=== PATIENT | female | born 1970 | race African-American/Black ===

== ENCOUNTER 2017-02-11 09:50 | Observation (INO) | payer MEDICARE ==
[2017-02-11] MEDS ORDERED: Ondansetron HCl/PF 4 MG/2 ML Vial ONE ×2 (10:09→11:31)
[2017-02-11 10:23] LABS: #Lymphocytes 1.9 thou/uL (1.20-3.40); #Monocytes 0.4 thou/uL (0.11-0.59); #Neutrophils 5.9 thou/uL (1.40-6.50); %Basophils 0.5 % (0.0-1.0); %Eosinophils 0.1 % (0.0-10.0); %Monocytes 5.1 % (0.0-10.0); Hematocrit 48.3 % (36.0-47.0); Mean Platelet Volume 7.7 fL (7.4-10.4); Red Blood Cell (RBC) Count 5.45 mill/uL (4.20-5.40); White Blood Cell (WBC) Count 8.2 thou/uL (4.8-10.8)
[2017-02-11 10:43] LABS: ALT (SGPT) 36 U/L (8-55); AST (SGOT) 31 U/L (5-34); Alkaline Phosphatase 234 U/L (40-150); Anion Gap 18 mmol/L (10-20); BUN (Urea Nitrogen) 25 mg/dL (7.0-18.7); Bilirubin, Total 0.5 mg/dL (0.2-1.2); Calc. Creatinine Clearance 0 mL/min (70-130); Calcium 10.5 mg/dL (7.8-10.44); Carbon Dioxide 25 mmol/L (22-29); Chloride 96 mmol/L (98-107); Estimated GFR-MDRD 67; Globulin 5.4 g/dL (2.4-3.5); Lipase 6 U/L (8-78); Protein, Total 9.4 g/dL (6.0-8.3)
[2017-02-11] MEDS ORDERED: Promethazine HCl 25 MG/ML VIAL ONE (12:22)
--- NOTE | 2017-02-11 15:03 | HP ---
PRIMARY CARE PHYSICIAN: [facility]. REASON FOR ADMISSION: Gastroenteritis, dehydration. HISTORY OF PRESENT ILLNESS: A 47-year-old -[place] female with history of hypertension, idalia betes type 2, who presented to emergency room with complaint of nausea, vomiting, diarrhea. Per pat ient, it started on Friday night. Patient had several times vomiting and several times liquidy sahara l movement. Patient was also having crampy abdominal discomfort. She was not having any fever, but she was subjectively feeling hot. On Friday, she had continuous nausea, vomiting, and diarrhea int ermittently all day. She was feeling very weak today and this morning, the patient was not feeling good. She was feeling sick in her stomach. She was feeling exhausted and she was still having inte rmittent nausea, vomiting, and diarrhea. She denies any sick contact. Patient thinks that she has eaten bad stuff and after that all this started. She denies any hematemesis. She denies any hemato chezia. She denies any melena. She denies any fever. She denies any UTI symptoms. She denies any dizziness, syncope. In the emergency room, patient was not able to keep anything down. She was hypertensive. She was t achycardic and she clinically appeared dehydrated. The patient was given IV fluid and subsequently we decided to keep this patient in the hospital for observation for hydration. Patient denies any headaches. She denies any chest pain, palpitations. She denies any orthopnea, P ND or leg swelling. She denies any illicit drug abuse. PAST MEDICAL HISTORY: Diabetes type 2, hypertension. PAST SURGICAL HISTORY: Hysterectomy. At 2014, patient had EGD which showed esophagitis. PAST PSYCHIATRIC HISTORY: Reviewed and negative. ALLERGIES: No known drug allergies. CURRENT HOME MEDICATIONS: The patient does not have any medication with her at this point, but yasmine ent is taking following medications: Amlodipine 10 mg p.o. daily, Lantus 30 units subcu twice daily , metformin 500 mg p.o. b.i.d. SOCIAL HISTORY: Patient lives at home. No history of tobacco, alcohol or illicit drug abuse. FAMILY HISTORY: Mother by age of 62 from stomach cancer. Father did not have any medical issu e. No strong family history of coronary artery disease or stroke. REVIEW OF SYSTEMS: The following complete review of systems was negative, unless otherwise mentione d in the HPI or below: Constitutional: Weight loss or gain, ability to conduct usual activities. Skin: Rash, itching. Eyes: Double vision, pain. ENT/Mouth: Nose bleeding, neck stiffness, pain, tenderness. Cardiovascular: Palpitations, dyspnea on exertion, orthopnea. Respiratory: Shortness of breath, wheezing, cough, hemoptysis, fever or night sweats. Gastrointestinal: Poor appetite, abdominal pain, heartburn, nausea, vomiting, constipation, or diar pam. Genitourinary: Urgency, frequency, dysuria, nocturia. Musculoskeletal: Pain, swelling. Neurologic/Psychiatric: Anxiety, depression. Allergy/Immunologic: Skin rash, bleeding tendency. Please see my HPI for pertinent positives and negatives. All other review of systems reviewed and n egative except as mentioned in the HPI. EMERGENCY ROOM COURSE: Patient is given IV fluid, Phenergan 12.5 mg, Cardizem 10 mg IV push, Zofran 4 mg, amlodipine one tablet, Zofran 4 mg. PHYSICAL EXAMINATION: VITAL SIGNS: On arrival, blood pressure 201/134, pulse 102, respiratory rate 16, temperature 97.7, saturation 100% on room air, weight 50.8 kilograms. GENERAL: Patient is currently alert, awake, no obvious acute distress. HEENT: Head: Normocephalic, atraumatic. Eyes: Pupils round, reactive to light. No nystagmus. E xtraocular muscle intact. ENT: Dry appearing mucous membranes. No oral lesions. No pharyngeal erythema, no exudate. NECK: Supple. Range of motion is normal. No meningeal signs of irritation. LUNGS: Clear to auscultation without any rhonchi or rales. CARDIAC: S1, S2 regular, tachycardia, no murmur, no gallop, no rub. ABDOMEN: Patient does have subjective vague abdominal discomfort, no peritoneal sign, no guarding, no rigidity, no rebound, no Pressley's sign, no suprapubic discomfort. BACK: Unremarkable, no CVA tenderness. EXTREMITIES: Upper extremity: Passive movement of all joints normal. Lower extremity: No edema. Good peripheral pulsation. SKIN: No skin rash. HEMATOLOGICAL: No lymphadenopathy. NEUROLOGIC: Patient is alert, oriented. Speech normal. No focal neurological deficit noted. The patient is moving all four limbs, plantar bilateral flexor. PSYCHIATRIC: Normal affect. SIGNIFICANT LABORATORY DATA: CBC: WBC 8.2, hemoglobin 16.5, platelet 279. BMP: Sodium 135, potas sium 3.6, chloride 96, anion gap 18, BUN 25, creatinine 1.06, glucose 141, calcium 10.5. LFT: AST 31, ALT 36, alkaline phosphatase 234, albumin 4.0, lipase 6. ASSESSMENT AND PLAN: 1. Gastroenteritis. This patient has nausea, vomiting, diarrhea. Per patient, it started after ea ting some bad stuff. At this point, a viral gastroenteritis is possible underlying infectious, etio logy needs to be excluded. This patient has severe nausea, vomiting, diarrhea, and she is clinicall y dehydrated. This patient is not able to keep anything down and that is why she will require admis haris for observation. We will continue with hydration, with IV fluid, with NS at 100 mL per hour. Regarding workup deshpande, we will do stool study for infectious workup. We will check C. difficile, ov a and parasite, Campylobacter antigen. At this point, we will not give her any antibiotic therapy. The patient will need symptomatic treatment with Zofran, Phenergan, Pepcid 20 mg IV b.i.d. and IV f luid for hydration. 2. Volume depletion/dehydration secondary to nausea, vomiting, diarrhea. This patient has low sodi um, low chloride. She is clinically appears dehydrated, this patient will be given IV fluid with NS at 100 mL per hour and we will repeat BMP tomorrow. 3. Hypertension. The patient's blood pressure is out of control, likely due to stress from nausea, vomiting, and diarrhea. At this point, we will continue with amlodipine 10 mg p.o. daily. We will also use hydralazine, labetalol, and clonidine on p.r.n. basis. 4. Diabetes type 2. We will continue with insulin as per sliding scale protocol. Diabetic diet wi ll be given. Once we verify her home dose of Lantus, then we will resume Lantus and metformin, when patient is able to take p.o. intake. At this point, only we will continue with sliding scale. 5. Deep venous thrombosis prophylaxis not needed because we are expecting discharge in 24 hours. 6. Gastrointestinal prophylaxis, Pepcid 20 mg IV b.i.d. 7. CODE STATUS: The patient is FULL CODE. The patient does not have any surrogate decision maker. Disposition and plan based on clinical course. We are expecting patient's discharge in 24-48 hours. Plan of care discussed with the patient in detail.
[2017-02-11] MEDS ORDERED: Artificial Tears 18 DROP/0.9 ML EA EYE PRN (15:12)
[2017-02-11] MEDS ORDERED: HYDROcodone/Acetaminophen 5/325 mg Tablet PO PRN (15:12)
[2017-02-11] MEDS ORDERED: Labetalol HCl 100 MG/20 ML VIAL SLOW IVP PRN (15:12)
[2017-02-11] MEDS ORDERED: Loperamide HCl 2 MG CAP PO PRN (15:12)
[2017-02-11] MEDS ORDERED: Mag-Al 1200 mg/1200 mg/30 ML UDCUP PO PRN (15:12)
[2017-02-11] MEDS ORDERED: Dextrose 50% Abboject 50 ML SYRINGE SLOW IVP PRN (15:12)
[2017-02-11] MEDS ORDERED: Insulin Regular 300 UNITS/3 ML VIAL SC PRN (15:12)
[2017-02-11] MEDS ORDERED: Eucerin (Mineral Oil/Petrolatum,White) 30 gm Jar TOP PRN (15:12)
[2017-02-11] MEDS ORDERED: Diabetic Tussin 200 MG/10 ML UDCUP PO PRN (15:12)
[2017-02-11] MEDS ORDERED: Ondansetron HCl/PF 4 MG/2 ML Vial IVP PRN (15:12)
[2017-02-11] MEDS ORDERED: Loratadine 10 MG TAB PO PRN (15:12)
[2017-02-11] MEDS ORDERED: Milk Of Magnesia 30 ML UDCUP PO PRN (15:12)
[2017-02-11] MEDS ORDERED: Zolpidem Tartrate 5 MG TAB PO PRN (15:12)
[2017-02-11] MEDS ORDERED: HumaLOG 300 UNITS/3 ML VIAL SC PRN (15:12)
[2017-02-11] MEDS ORDERED: Sodium Chloride 0.65% Nasal 44 ML BOT EA NARE PRN (15:12)
[2017-02-11] MEDS ORDERED: Dextrose 5% in Water 1,000 ML IV PRN (15:12)
[2017-02-11] MEDS ORDERED: Acetaminophen 325 MG TAB PO PRN (15:12)
[2017-02-11] MEDS ORDERED: Promethazine HCl 25 MG/ML VIAL IM/IV PRN (15:12)
[2017-02-11] MEDS ORDERED: Ondansetron ODT 4 MG TAB PO PRN (15:12)
[2017-02-11] MEDS: Sodium Chloride 0.9% 1,000 ML IV SCH (16:10)
[2017-02-11 17:23] LABS: Bilirubin Negative (Negative); Blood, Urine Small (Negative); Glucose, Urine (Dipstick) 250 mg/dL (Negative); Ketone, Urine 40 mg/dL (Negative); Nitrite Negative (Negative); Protein, Urine (Dipstick) 300 mg/dL (Neg-Trace)
[2017-02-11 17:28] LABS: Bacteria/HPF 4+ HPF (None Seen); Hyaline Casts/LPF 0-3 HYALINE CAST LPF (0-3 Hyaline); RBC/HPF 21-50 HPF (0-3); Squamous Epithelial 0-3 HPF (0-3)
[2017-02-11 17:33] LABS: Amphetamine Not Detected (NotDetected); Methadone Not Detected (NotDetected); Methamphetamine Not Detected (NotDetected)
[2017-02-11] MEDS: Famotidine/PF 20 mg/2ml Vial SLOW IVP SCH (19:40)
[2017-02-11] MEDS: cloNIDine HCl 0.1 MG TAB PO PRN (19:41)
[2017-02-12] MEDS: Sodium Chloride 0.9% 1,000 ML IV SCH ×2 (04:01→15:22)
[2017-02-12 04:50] LABS: #Lymphocytes 1.7 thou/uL (1.20-3.40); #Monocytes 0.6 thou/uL (0.11-0.59); #Neutrophils 6.9 thou/uL (1.40-6.50); %Basophils 0.3 % (0.0-1.0); %Eosinophils 0.2 % (0.0-10.0); %Lymphocytes 18.5 % (21.0-51.0); %Monocytes 6.8 % (0.0-10.0); Hematocrit 41.2 % (36.0-47.0); Mean Platelet Volume 7.7 fL (7.4-10.4); Red Blood Cell (RBC) Count 4.48 mill/uL (4.20-5.40); White Blood Cell (WBC) Count 9.3 thou/uL (4.8-10.8)
[2017-02-12 05:22] LABS: ALT (SGPT) 25 U/L (8-55); AST (SGOT) 26 U/L (5-34); Alkaline Phosphatase 181 U/L (40-150); Anion Gap 15 mmol/L (10-20); BUN (Urea Nitrogen) 19 mg/dL (7.0-18.7); Bilirubin, Total 0.4 mg/dL (0.2-1.2); Calc. Creatinine Clearance 70 mL/min (70-130); Calcium 9.1 mg/dL (7.8-10.44); Carbon Dioxide 21 mmol/L (22-29); Chloride 105 mmol/L (98-107); Estimated GFR-MDRD Greater than 90; Globulin 4.2 g/dL (2.4-3.5); Magnesium 1.4 mg/dL (1.6-2.6); Protein, Total 7.4 g/dL (6.0-8.3)
[2017-02-12] MEDS: Insulin Regular 300 UNITS/3 ML VIAL SC PRN (06:23)
[2017-02-12] MEDS: Famotidine/PF 20 mg/2ml Vial SLOW IVP SCH (08:03)
--- NOTE | 2017-02-12 08:23 | PDOC.PN ---
- Subjective Encounter Start Date: 02/12/17 Encounter Start Time: 08:21 Subjective: Nausea improving -: No f/c -: No cp/sob - Objective Resuscitation Status: Resuscitation Status FULL:Full Resuscitation MAR Reviewed: Yes Vital Signs & Weight: Vital Signs (12 hours) Temp Pulse Resp BP BP Pulse Ox 02/12/17 08:03 100 02/12/17 07:40 98.7 F 102 H 16 181/80 H 94 L 02/12/17 02:50 99.0 F 100 14 165/101 H 99 02/11/17 23:29 98.7 F 101 H 16 165/85 H 93 L 02/11/17 20:50 182/97 H Weight Weight 113 lb 6.4 oz I&O: 02/11/17 02/12/17 02/13/17 06:59 06:59 06:59 Intake Total 1753 Output Total 500 Balance 1253 Result Diagrams: 02/12/17 04:30 02/12/17 04:30 Additional Labs: Accuchecks 02/11/17 02/11/17 20:40 17:46 POC Glucose 175 H 170 H Phys Exam - Physical Examination Constitutional: NAD HEENT: moist MMs, sclera anicteric Neck: no nodes, no JVD Respiratory: no wheezing, no rales, clear to auscultation bilateral Cardiovascular: RRR, no significant murmur Gastrointestinal: soft, non-tender, positive bowel sounds Neurological: non-focal Psychiatric: normal affect Skin: no rash, normal turgor Dx/Plan (1) Gastroenteritis Code(s): K52.9 - NONINFECTIVE GASTROENTERITIS AND COLITIS, UNSPECIFIED Status : Acute (2) Dehydration Code(s): E86.0 - DEHYDRATION Status: Acute (3) DM type 2 (diabetes mellitus, type 2) Status: Chronic (4) HTN (hypertension) Code(s): I10 - ESSENTIAL (PRIMARY) HYPERTENSION Status: Chronic - Plan Gastroenteritis (N/V/D) with PO intolerance and dehydration * IVFs * prn analgesics/antiemetics * stool studies: unremarkable * check labs in AM +UA * check urine culture DM2 * SSI * f/u accu checks HTN * start Lisinopril 20mg daily * monitor BP and HR closely
[2017-02-12] MEDS ORDERED: Lisinopril 20 MG TAB PO SCH (09:00)
[2017-02-12] MEDS: cloNIDine HCl 0.1 MG TAB PO PRN ×2 (11:44→16:22)
[2017-02-12] MEDS: Famotidine 20 MG TAB PO SCH (20:15)
--- NOTE | 2017-02-13 08:06 | PDOC.PN ---
- Subjective Encounter Start Date: 02/13/17 Encounter Start Time: 08:02 Subjective: Nausea this morning -: No f/c -: No cp/sob - Objective Resuscitation Status: Resuscitation Status FULL:Full Resuscitation MAR Reviewed: Yes Vital Signs & Weight: Vital Signs (12 hours) Temp Pulse Resp BP Pulse Ox 02/13/17 07:56 98.0 F 102 H 16 171/84 H 96 02/13/17 03:54 98.6 F 84 16 180/98 H 96 02/13/17 00:08 99.4 F 91 16 166/89 H 95 Weight Admit Weight 113 lb 6.4 oz Weight 104 lb 11.2 oz I&O: 02/12/17 02/13/17 02/14/17 06:59 06:59 06:59 Intake Total 1753 1720 Output Total 500 500 Balance 1253 1220 Result Diagrams: 02/12/17 04:30 02/12/17 04:30 Additional Labs: Accuchecks 02/13/17 02/12/17 02/12/17 05:03 21:12 17:27 POC Glucose 217 H 242 H 208 H 02/12/17 02/12/17 11:33 05:51 POC Glucose 187 H 195 H Phys Exam - Physical Examination Constitutional: NAD HEENT: moist MMs, sclera anicteric Neck: no nodes, no JVD Respiratory: no wheezing, no rales, no rhonchi Cardiovascular: no significant murmur Gastrointestinal: soft, non-tender, no distention, positive bowel sounds Neurological: non-focal Psychiatric: normal affect Skin: no rash, normal turgor, cap refill <2 seconds Dx/Plan (1) Gastroenteritis Code(s): K52.9 - NONINFECTIVE GASTROENTERITIS AND COLITIS, UNSPECIFIED Status : Acute (2) Dehydration Code(s): E86.0 - DEHYDRATION Status: Acute (3) DM type 2 (diabetes mellitus, type 2) Status: Chronic (4) HTN (hypertension) Code(s): I10 - ESSENTIAL (PRIMARY) HYPERTENSION Status: Chronic - Plan Gastroenteritis (N/V/D) with PO intolerance and dehydration * s/p IVFs * prn analgesics/antiemetics * stool studies: unremarkable * check labs in AM UTI (presumed Klebsiella/Enterobacter on Prelim results) * f/u final urine culture * start Ceftriaxone IV daily DM2 * start 5 units QAM today * SSI * f/u accu checks HTN * started Lisinopril: will increase to 40mg daily * monitor BP and HR closely
[2017-02-13] MEDS ORDERED: cefTRIAXone\\ROCEPHIN 1 GM in Sodium Chloride 0.9% 100 ML IVPB SCH (08:15)
[2017-02-13] MEDS: Famotidine 20 MG TAB PO SCH ×2 (08:22→20:27)
[2017-02-13] MEDS: Lisinopril 20 MG TAB PO SCH (08:22)
[2017-02-13] MEDS ORDERED: Insulin Detemir 100 UNITS/ML 5 UNITS in Pre-Filled Syringe 1 EACH SC SCH (09:00)
[2017-02-13] MEDS: Insulin Regular 300 UNITS/3 ML VIAL SC PRN ×2 (12:13→18:24)
[2017-02-13] MEDS ORDERED: cefTRIAXone\\ROCEPHIN 1 GM VIAL IM SCH (12:45)
[2017-02-14 05:24] LABS: Anion Gap 13 mmol/L (10-20); BUN (Urea Nitrogen) 19 mg/dL (7.0-18.7); Calc. Creatinine Clearance 66 mL/min (70-130); Carbon Dioxide 25 mmol/L (22-29); Chloride 96 mmol/L (98-107); Estimated GFR-MDRD 90; Magnesium 1.3 mg/dL (1.6-2.6)
[2017-02-14] MEDS: Insulin Regular 300 UNITS/3 ML VIAL SC PRN ×2 (05:31→11:19)
[2017-02-14 06:14] LABS: Hematocrit 42.9 % (36.0-47.0); Mean Platelet Volume 7.7 fL (7.4-10.4); Metamyelocyte 1 % (0-0); Neutrophil 43 % (42-75); Reactive Lymphocytes 1 % (0-10); Red Blood Cell (RBC) Count 4.81 mill/uL (4.20-5.40); White Blood Cell (WBC) Count 6.8 thou/uL (4.8-10.8)
--- NOTE | 2017-02-14 07:58 | PDOC.PN ---
- Subjective Encounter Start Date: 02/14/17 Encounter Start Time: 07:56 Subjective: No f/c -: No n/v -: Fatigue/weakness (generalized) - Objective Resuscitation Status: Resuscitation Status FULL:Full Resuscitation MAR Reviewed: Yes Vital Signs & Weight: Vital Signs (12 hours) Temp Pulse Resp BP Pulse Ox 02/14/17 04:19 98.2 F 88 18 149/93 H 94 L 02/13/17 23:27 98.7 F 85 16 134/81 95 Weight Admit Weight 113 lb 6.4 oz Weight 110 lb 8 oz I&O: 02/13/17 02/14/17 02/15/17 06:59 06:59 06:59 Intake Total 1720 375 Output Total 500 1100 Balance 1220 -725 Result Diagrams: 02/14/17 04:22 02/14/17 04:22 Additional Labs: Accuchecks 02/13/17 02/13/17 02/13/17 21:00 17:20 11:00 POC Glucose 227 H 253 H 451 H Phys Exam - Physical Examination Constitutional: NAD HEENT: moist MMs, sclera anicteric Neck: no nodes, no JVD Respiratory: no wheezing, no rales, no rhonchi, clear to auscultation bilateral Cardiovascular: RRR, no significant murmur Gastrointestinal: soft, non-tender, positive bowel sounds Neurological: non-focal Psychiatric: normal affect Skin: no rash, normal turgor Dx/Plan (1) Gastroenteritis Code(s): K52.9 - NONINFECTIVE GASTROENTERITIS AND COLITIS, UNSPECIFIED Status : Acute (2) Dehydration Code(s): E86.0 - DEHYDRATION Status: Acute (3) DM type 2 (diabetes mellitus, type 2) Status: Chronic (4) HTN (hypertension) Code(s): I10 - ESSENTIAL (PRIMARY) HYPERTENSION Status: Chronic - Plan Gastroenteritis (N/V/D) with PO intolerance and dehydration * s/p IVFs * prn analgesics/antiemetics * stool studies: unremarkable * check labs in AM Klebsiella UTI * Continue Ceftriaxone (based on urine sensitivities) - day 2/3 DM2 (uncontrolled) * started Levemir: increase to 10 units QAM * SSI * f/u accu checks HTN * started Lisinopril: increased to 40mg daily * start HCTZ 12.5mg daily * monitor BP and HR closely Hypokalemia/Hypomagnesemia * will replace both today to prevent cardiac arrhythmias * check K and Mg in AM
[2017-02-14] MEDS ORDERED: Potassium Chloride 20 MEQ TAB PO SCH (08:00)
[2017-02-14] MEDS ORDERED: Magnesium Sulfate 4 GM in Sodium Chloride 0.9% 250 ML 250 ML IVPB SCH ×2 (08:15→09:30)
[2017-02-14] MEDS ORDERED: Hydrochlorothiazide 25 MG TAB PO SCH (09:00)
[2017-02-14] MEDS ORDERED: Insulin Detemir 100 UNITS/ML 10 UNITS in Pre-Filled Syringe 1 EACH SC SCH (09:00)
[2017-02-14] MEDS ORDERED: cefTRIAXone\\ROCEPHIN 1 GM VIAL IM SCH (09:00)
[2017-02-14] MEDS: Famotidine 20 MG TAB PO SCH (09:59)
[2017-02-14] MEDS: Lisinopril 20 MG TAB PO SCH (10:00)
[2017-02-14] MEDS ORDERED: Sterile Water 10 ML ONE (10:05)
[2017-02-14 15:27] VITALS: BMI 26.6
[2017-02-14 15:28] VITALS: BP 139/82; TEMP 98.2
--- NOTE | 2017-02-14 15:28 | PDOC.EVN ---
Event Note - Event Note Event Note: Discharge Summary: [id number]
[2017-02-14] MEDS ORDERED: Cipro 250 MG TAB PO SCH (20:00)
[2017-02-14] MEDS ORDERED: Magnesium Oxide 400 MG TAB PO SCH (21:00)
--- NOTE | 2017-02-14 21:59 | DIS ---
DATE OF ADMISSION: 02/11/2017 DATE OF DISCHARGE: 02/14/2017 PRIMARY DISCHARGE DIAGNOSES: 1. Gastroenteritis. 2. Klebsiella urinary tract infection. 3. Diabetes mellitus type 2. 4. Hypokalemia/hypomagnesemia. SECONDARY DISCHARGE DIAGNOSIS: Hypertension. HOSPITAL COURSE SUMMARY: This is a 47-year-old female who presented with symptoms of gastroenteriti s including nausea, vomiting, and diarrhea with p.o. intolerance and dehydration. She was rehydrate d with IV fluids and given analgesics and antiemetics with unremarkable stools studies. In addition , she was noted to have klebsiella urinary tract infection for which she received IV ceftriaxone. S he will be discharged to complete home regimen of ciprofloxacin b.i.d. With regard to her diabetes, her blood sugars were elevated secondary to having to hold her oral agent as a result of nausea; ho alex, I will restart her meds upon discharge with recommendation to continue diabetic diet. With regard to her hypertension, I will double the dose of her antihypertensives. With regard to hypokalemia and hypomagnesemia, these will be replaced today. In addition, I will gi ve K-Dur and magnesium oxide to take as an outpatient with follow up with the PCP in 1 week. DISCHARGE PHYSICAL EXAMINATION, LABORATORY DATA, AND IMAGING: Please refer to my progress note from earlier today. DISCHARGE MEDICATIONS: Reviewed and reconciled. Please refer to the EMR for details. DISCHARGE PLAN/DISPOSITION: Discharge home today. Follow up with PCP in 1 week.
[2017-02-15] MEDS ORDERED: Insulin Detemir 100 UNITS/ML 10 UNITS in Pre-Filled Syringe 1 EACH SC SCH (09:00)
== END 2017-02-14 17:38 | disposition home or self-care (01) ==
LOC: ERS 09:50 → 2SW 14:03
PROVIDERS: ADMIT Internal Medicine; ATTEND Internal Medicine
DX: K52.9 Noninfective gastroenteritis and colitis, unspecified (principal); N39.0 Urinary tract infection, site not specified; B96.1 Klebsiella pneumoniae [K. pneumoniae] as the cause of diseases classified elsewhere; E11.9 Type 2 diabetes mellitus without complications; E87.6 Hypokalemia; E83.42 Hypomagnesemia; I10 Essential (primary) hypertension; R00.0 Tachycardia, unspecified; Z79.84 Long term (current) use of oral hypoglycemic drugs; Z79.4 Long term (current) use of insulin; Z79.899 Other long term (current) drug therapy; E86.0 Dehydration; Z90.710 Acquired absence of both cervix and uterus; Z98.890 Other specified postprocedural states; Z80.0 Family history of malignant neoplasm of digestive organs
CPT/HCPCS: 80048; 80053 ×2; 80306; 82010; 82962 ×4; 83690; 83735 ×2; 84100; 85025 ×3; 87015; 87045; 87046; 87077; 87086; 87186; 87324; 87328; 87329; 87449 ×2; 87899 ×2; 94760; 96361 ×3; 96365; 96372 ×2; 96375 ×3; 96376 ×2; 99285; G0378 ×2; 36415; 36416; 81003; 81015; A4216; J0696; J1815; J2405; J2550; J3475; J7050; S0028

== ENCOUNTER 2017-03-08 09:34 | Observation (INO) | payer MEDICARE ==
[2017-03-08] MEDS ORDERED: cloNIDine HCl 0.1 MG TAB ONE (10:15)
[2017-03-08 10:20] LABS: #Lymphocytes 1.5 thou/uL (1.20-3.40); #Monocytes 0.6 thou/uL (0.11-0.59); #Neutrophils 7.4 thou/uL (1.40-6.50); %Basophils 0.1 % (0.0-1.0); %Lymphocytes 16.2 % (21.0-51.0); %Monocytes 5.9 % (0.0-10.0); Red Blood Cell (RBC) Count 4.56 mill/uL (4.20-5.40); White Blood Cell (WBC) Count 9.5 thou/uL (4.8-10.8)
[2017-03-08 10:34] LABS: ALT (SGPT) 31 U/L (8-55); AST (SGOT) 31 U/L (5-34); Alkaline Phosphatase 182 U/L (40-150); Anion Gap 15 mmol/L (10-20); BUN (Urea Nitrogen) 20 mg/dL (7.0-18.7); Bilirubin, Total 0.5 mg/dL (0.2-1.2); Calc. Creatinine Clearance 0 mL/min (70-130); Calcium 9.7 mg/dL (7.8-10.44); Carbon Dioxide 28 mmol/L (22-29); Chloride 99 mmol/L (98-107); Estimated GFR-MDRD 78; Globulin 4.7 g/dL (2.4-3.5); Lipase Less than 4 U/L (8-78); Protein, Total 8.5 g/dL (6.0-8.3)
[2017-03-08] MEDS ORDERED: Metoprolol Tartrate 5 MG/5 ML VIAL ONE ×3 (11:50→13:34)
[2017-03-08 12:03] LABS: Bilirubin Negative (Negative); Blood, Urine Moderate (Negative); Glucose, Urine (Dipstick) >=1000 mg/dL (Negative); Ketone, Urine 15 mg/dL (Negative); Nitrite Negative (Negative); Protein, Urine (Dipstick) 300 mg/dL (Neg-Trace)
[2017-03-08 12:07] LABS: Hyaline Casts/LPF 0-3 HYALINE CAST LPF (0-3 Hyaline); Squamous Epithelial None Seen HPF (0-3)
[2017-03-08 12:19] LABS: Bacteria/HPF 4+ HPF (None Seen); RBC/HPF 0-3 HPF (0-3)
[2017-03-08 12:20] LABS: Yeast-All Forms 1+ HPF (None Seen)
[2017-03-08] MEDS ORDERED: Ondansetron HCl/PF 4 MG/2 ML Vial ONE (12:29)
[2017-03-08] MEDS ORDERED: Promethazine HCl 25 MG/ML VIAL ONE (13:12)
[2017-03-08 13:29] LABS: Lactic Acid - Sepsis 1.7 mmol/L (0.5-2.2)
--- NOTE | 2017-03-08 14:31 | HP ---
PRIMARY CARE PHYSICIAN: [facility]. REASON FOR ADMISSION: Intractable nausea, vomiting, urinary tract infection. HISTORY OF PRESENT ILLNESS: A 47-year-old -Spanish female with a history of diabetes type 2 as well as hypertension who came to the Emergency Room for evaluation of nausea, vomiting, and abdo randy pain. Patient reports that she has nausea for the last 2 days; yesterday she was having vomit ing. She was not able to keep anything down. After work, she has to [facility] during night time. She was evaluated there and she had CT brain and chest x-ray whic h was normal. She had routine blood tests and she was told that she was dehydrated. She was given IV fluids and morphine for pain medication and symptomatic treatment for vomiting and she was discha rged home. She did not get better after discharge from the emergency room. She had ongoing nausea and vomiting. She was having lower abdominal pain. She was having increased frequency and dysuria. This morning, she was having headache. She was feeling dizziness and she was also having back lori n and that is why she decided to come to the emergency room for evaluation. When this patient presented to emergency room, she was hypertensive with blood pressure 204/111 and she was tachycardic with pulse of 119. She was afebrile. Her urinalysis did show urinary tract inf ection. Patient reports that after discharge from the hospital last time, she was given blood press ure medication, but that medication is not controlling her blood pressure and she denies any diarrhe a. She denies any chest pain or palpitations. She denies any syncope. She denies any focal motor or sensory symptoms. This patient was admitted in our hospital on 02/11/2017. At that time, the patient was treated for gastroenteritis and dehydration. Today in the emergency room, routine blood tests showed normal BMP and CBC, but her urinalysis was suggestive of urinary tract infection. REVIEW OF SYSTEMS: The following complete review of systems was negative, unless otherwise mentione d in the HPI or below: Constitutional: Weight loss or gain, ability to conduct usual activities. Skin: Rash, itching. Eyes: Double vision, pain. ENT/Mouth: Nose bleeding, neck stiffness, pain, tenderness. Cardiovascular: Palpitations, dyspnea on exertion, orthopnea. Respiratory: Shortness of breath, wheezing, cough, hemoptysis, fever or night sweats. Gastrointestinal: Poor appetite, abdominal pain, heartburn, nausea, vomiting, constipation, or diar pam. Genitourinary: Urgency, frequency, dysuria, nocturia. Musculoskeletal: Pain, swelling. Neurologic/Psychiatric: Anxiety, depression. Allergy/Immunologic: Skin rash, bleeding tendency. Please see my HPI for pertinent positive and negative. All other review of systems reviewed and neg ative except as mentioned in the HPI. EMERGENCY ROOM COURSE: Patient is given metoprolol 5 mg IV push, Phenergan 12.5 mg IV, Zofran 4 mg. Subsequently, another couple of dose of metoprolol tartrate 5 mg were given. The patient was also given clonidine 0.1 mg. PAST MEDICAL HISTORY: Diabetes type 2 and hypertension. PAST SURGICAL HISTORY: Hysterectomy, history of upper endoscopy showed esophagitis. PAST PSYCHIATRIC HISTORY: Reviewed and negative. ALLERGIES: No known drug allergies. CURRENT HOME MEDICATIONS: The patient was discharged from hospital on following medications; insuli n Lantus 30 units subcutaneous daily, Prinzide 20/12.5 two tablets p.o. daily, magnesium 400 mg p.o. daily, potassium chloride 20 mEq p.o. daily, metformin 500 mg p.o. b.i.d. SOCIAL HISTORY: Patient lives at home. She is living with her son. She is single. No history of tobacco, alcohol or illicit drug abuse. FAMILY HISTORY: Mother by age of 62 from stomach cancer and father did not have any medical pr oblems. No strong family history of coronary artery disease or stroke. PHYSICAL EXAMINATION: VITAL SIGNS: On arrival, blood pressure 204/111, pulse 119, respiratory rate 16, temperature 98.1, saturation 96% on room air, and weight 51.3 kilograms. GENERAL: Patient is currently alert, awake, mild distress due to nausea, hypertensive and tachycard ic. HEENT: Normocephalic, atraumatic. EYES: Pupils round, reactive to light. Extraocular muscles intact. ENT: Oropharynx within normal limits. Moist mucous membranes. No oral lesions. No pharyngeal art thema, no exudate. NECK: Supple. Range of motion is normal. No meningeal signs of irritation. LUNGS: Clear to auscultation without any rhonchi or rales. CARDIAC: S1 and S2 regular, tachycardia, no murmur, no gallop, no rub. ABDOMEN: Soft, bowel sounds present. No peritoneal signs, no guarding, no rigidity, no rebound. BACK: Examination unremarkable, no CVA tenderness. EXTREMITIES: Upper extremity passive movements of all joints are normal. Lower extremity, no edema . Good peripheral pulsation. SKIN: No skin rash. HEMATOLOGICAL SYSTEM: No lymphadenopathy. PSYCHIATRIC: Normal affect. IMAGING AND SIGNIFICANT LABORATORY DATA: 1. EKG based on my review, sinus tachycardia, biatrial enlargement. 2. CBC: WBC 9.5, hemoglobin 13.8, platelet 256. 3. BMP: Sodium 138, potassium 3.8, chloride 99, carbon dioxide 28, BUN 20, creatinine 0.93, glucos e 277, and calcium 9.7. 4. LFT: AST 31, ALT 31, alkaline phosphatase 182, albumin 3.8, lipase less than 4, TSH 1.28. Lact ic acid 1.7. Urinalysis suggestive of UTI. Urine test negative. ASSESSMENT AND PLAN/IMPRESSION: 1. Intractable nausea and vomiting, likely related with underlying urinary tract infection. Xochilt guevara will be treated with Zofran and Phenergan for nausea and vomiting. We will also give her Pepcid 2 0 mg IV b.i.d. 2. Urinary tract infection. Patient will be given Rocephin 1 gram q.24 hours and we will follow up on urine culture result. We will give her oral antibiotic therapy upon discharge based on culture and sensitivity result. 3. Hypertensive urgency. The patient's blood pressure will be controlled with clonidine p.r.n. bas is, labetalol and hydralazine on p.r.n. basis. We will change her blood pressure medication during this admission to Procardia-XL 60 mg p.o. daily and we will also prescribe clonidine and we will als o prescribe Coreg 25 mg p.o. b.i.d. 4. Diabetes type 2. We will continue Lantus insulin 30 units subcutaneous daily and Humalog insuli n as per sliding scale per protocol. 5. Deep venous thrombosis prophylaxis not needed because we are expecting discharge in 24 hours. 6. Gastrointestinal prophylaxis, Pepcid 20 mg IV b.i.d. 7. Code status: The patient is FULL CODE. Patient does not have any surrogate decision maker. Disposition and plan within 24 hours. Plan of care discussed with the patient in detail.
[2017-03-08] MEDS ORDERED: Dextrose 50% Abboject 50 ML SYRINGE SLOW IVP PRN (15:04)
[2017-03-08] MEDS ORDERED: Ondansetron ODT 4 MG TAB PO PRN (15:04)
[2017-03-08] MEDS ORDERED: Sodium Chloride 0.65% Nasal 44 ML BOT EA NARE PRN (15:04)
[2017-03-08] MEDS ORDERED: Acetaminophen 325 MG TAB PO PRN (15:04)
[2017-03-08] MEDS ORDERED: Senokot 8.6 MG TAB PO PRN (15:04)
[2017-03-08] MEDS ORDERED: Eucerin (Mineral Oil/Petrolatum,White) 30 gm Jar TOP PRN (15:04)
[2017-03-08] MEDS ORDERED: Loratadine 10 MG TAB PO PRN (15:04)
[2017-03-08] MEDS ORDERED: HumaLOG 300 UNITS/3 ML VIAL SC PRN ×2 (15:04)
[2017-03-08] MEDS ORDERED: Zolpidem Tartrate 5 MG TAB PO PRN (15:04)
[2017-03-08] MEDS ORDERED: Milk Of Magnesia 30 ML UDCUP PO PRN (15:04)
[2017-03-08] MEDS ORDERED: Diabetic Tussin 200 MG/10 ML UDCUP PO PRN (15:04)
[2017-03-08] MEDS ORDERED: Artificial Tears 18 DROP/0.9 ML EA EYE PRN (15:04)
[2017-03-08] MEDS ORDERED: Dextrose 5% in Water 1,000 ML IV PRN (15:04)
[2017-03-08] MEDS ORDERED: Labetalol HCl 100 MG/20 ML VIAL SLOW IVP PRN (15:04)
[2017-03-08] MEDS ORDERED: Promethazine HCl 25 MG/ML VIAL IM/IV PRN (15:04)
[2017-03-08] MEDS ORDERED: HYDROcodone/Acetaminophen 5/325 mg Tablet PO PRN (15:04)
[2017-03-08] MEDS ORDERED: Ondansetron HCl/PF 4 MG/2 ML Vial IVP PRN (15:04)
[2017-03-08] MEDS ORDERED: Mag-Al 1200 mg/1200 mg/30 ML UDCUP PO PRN (15:04)
[2017-03-08] MEDS ORDERED: Loperamide HCl 2 MG CAP PO PRN (15:04)
--- NOTE | 2017-03-08 16:05 | RAD ---
2 VIEWS OF ABDOMEN AND UPRIGHT VIEW OF CHEST: Date: 03/08/17 COMPARISON: 03/07/05. HISTORY: Vomiting since yesterday and abdominal pain. FINDINGS: Supine and upright views of the abdomen and upright view of the chest shows a nonspecific, nonobstru ctive bowel gas pattern. No free air or air fluid levels are seen on an upright examination. The cardiomediastinal silhouette is normal in size. There is no evidence of consolidation, mass, or pleural effusion. IMPRESSION: Nonobstructive bowel gas pattern. POS: RYANH
[2017-03-08] MEDS: cloNIDine HCl 0.1 MG TAB PO PRN (16:26)
[2017-03-08] MEDS: Carvedilol 25 MG TAB PO SCH (16:26)
[2017-03-08] MEDS: cefTRIAXone\\ROCEPHIN 1 GM in Sodium Chloride 0.9% 100 ML IVPB SCH (16:35)
[2017-03-08] MEDS ORDERED: FLU VACC QS2017-18 36 mo. & older 0.5 ML SYRINGE IM ONE (18:45)
[2017-03-08] MEDS: Famotidine/PF 20 mg/2ml Vial SLOW IVP SCH (20:34)
[2017-03-09 03:48] LABS: #Basophils 0.2 thou/uL (0.0-0.2); #Lymphocytes 2.1 thou/uL (1.20-3.40); #Monocytes 0.7 thou/uL (0.11-0.59); #Neutrophils 4.3 thou/uL (1.40-6.50); %Basophils 2.1 % (0.0-1.0); %Eosinophils 0.3 % (0.0-10.0); %Lymphocytes 28.5 % (21.0-51.0); %Monocytes 9.6 % (0.0-10.0); Hematocrit 38.7 % (36.0-47.0); Mean Platelet Volume 7.4 fL (7.4-10.4); Red Blood Cell (RBC) Count 4.22 mill/uL (4.20-5.40); White Blood Cell (WBC) Count 7.3 thou/uL (4.8-10.8)
[2017-03-09 04:15] LABS: Anion Gap 10 mmol/L (10-20); BUN (Urea Nitrogen) 25 mg/dL (7.0-18.7); Calc. Creatinine Clearance 0 mL/min (70-130); Calcium 9.3 mg/dL (7.8-10.44); Carbon Dioxide 28 mmol/L (22-29); Chloride 104 mmol/L (98-107); Estimated GFR-MDRD 86
[2017-03-09] MEDS: Famotidine/PF 20 mg/2ml Vial SLOW IVP SCH ×2 (07:35→20:50)
--- NOTE | 2017-03-09 07:35 | PDOC.PN ---
- Subjective Encounter Start Date: 03/09/17 Encounter Start Time: 07:33 Subjective: Nausea -: Still hypertensive this morning -: No f/c - Objective Resuscitation Status: Resuscitation Status FULL:Full Resuscitation MAR Reviewed: Yes Vital Signs & Weight: Vital Signs (12 hours) Temp Pulse Resp BP BP Pulse Ox 03/09/17 04:19 98.9 F 93 18 143/86 H 143/86 H 95 03/09/17 00:11 99 F 88 18 143/88 H 93 L 03/08/17 20:38 100 F H 92 18 03/08/17 20:00 100 F H 92 18 128/76 93 L Weight Weight 3.905 oz I&O: 03/08/17 03/09/17 03/10/17 06:59 06:59 06:59 Intake Total 1280 Balance 1280 Result Diagrams: 03/09/17 03:39 03/09/17 03:39 Additional Labs: Accuchecks 03/09/17 03/08/17 03/08/17 05:22 21:44 17:50 POC Glucose 77 108 136 H Phys Exam - Physical Examination Constitutional: NAD HEENT: PERRLA, moist MMs Neck: no nodes, no JVD Respiratory: no wheezing, no rales, no rhonchi, clear to auscultation bilateral Cardiovascular: RRR, no significant murmur Gastrointestinal: soft, non-tender, positive bowel sounds Psychiatric: normal affect Skin: no rash, normal turgor Dx/Plan (1) Hypertensive urgency Code(s): I16.0 - HYPERTENSIVE URGENCY Status: Acute (2) Nausea and vomiting Code(s): R11.2 - NAUSEA WITH VOMITING, UNSPECIFIED Status: Acute (3) Urinary tract infection Status: Acute (4) DM type 2 (diabetes mellitus, type 2) Status: Chronic - Plan Nausea and Vomiting 2/2 UTI * Abdominal Xray Series: No obstruction * prn antiemetics * Emperic Abx: Ceftriaxone * Urine cx: Pending * check labs in AM Hypertensive Urgency * add prn hydralazine * monitor BP and HR closely DM2 * continue Insulin * f/u accu checks Hypokalemia * will replace today * check K and Mg in AM Dispo: Continue inpt.
[2017-03-09] MEDS: cloNIDine HCl 0.1 MG TAB PO PRN (07:36)
[2017-03-09] MEDS: NIFEdipine XL 60 MG TAB PO SCH (07:36)
[2017-03-09] MEDS: Carvedilol 25 MG TAB PO SCH ×2 (07:37→18:21)
[2017-03-09] MEDS ORDERED: Potassium Chloride 20 MEQ TAB PO SCH (07:45)
[2017-03-09] MEDS: Insulin Detemir 100 UNITS/ML 30 UNITS in Admixture Fee 1 EACH SC SCH (08:00)
[2017-03-09] MEDS ORDERED: Morphine Sulfate 2 MG/ML SYRINGE ONE (08:06)
[2017-03-09] MEDS ORDERED: cloNIDine 0.3mg/24 Hour PATCH TD SCH (09:00)
[2017-03-09] MEDS ORDERED: Morphine Sulfate 2 MG/ML SYRINGE SLOW IVP PRN (11:23)
[2017-03-09] MEDS: cefTRIAXone\\ROCEPHIN 1 GM in Sodium Chloride 0.9% 100 ML IVPB SCH (16:24)
[2017-03-10 04:15] LABS: #Basophils 0.1 thou/uL (0.0-0.2); #Lymphocytes 2.9 thou/uL (1.20-3.40); #Monocytes 0.8 thou/uL (0.11-0.59); #Neutrophils 2.3 thou/uL (1.40-6.50); %Basophils 1.5 % (0.0-1.0); %Eosinophils 0.6 % (0.0-10.0); %Lymphocytes 47.1 % (21.0-51.0); %Monocytes 13.2 % (0.0-10.0); Hematocrit 38.6 % (36.0-47.0); Mean Platelet Volume 7.5 fL (7.4-10.4); Red Blood Cell (RBC) Count 4.19 mill/uL (4.20-5.40); White Blood Cell (WBC) Count 6.1 thou/uL (4.8-10.8)
[2017-03-10 04:31] LABS: Anion Gap 11 mmol/L (10-20); BUN (Urea Nitrogen) 23 mg/dL (7.0-18.7); Calc. Creatinine Clearance 0 mL/min (70-130); Calcium 9.1 mg/dL (7.8-10.44); Carbon Dioxide 26 mmol/L (22-29); Chloride 101 mmol/L (98-107); Estimated GFR-MDRD Greater than 90; Magnesium 1.6 mg/dL (1.6-2.6)
--- NOTE | 2017-03-10 07:25 | PDOC.PN ---
- Subjective Encounter Start Date: 03/10/17 Encounter Start Time: 07:24 Subjective: No HERNANDEZ -: No cp/sob -: No n/v - Objective Resuscitation Status: Resuscitation Status FULL:Full Resuscitation MAR Reviewed: Yes Vital Signs & Weight: Vital Signs (12 hours) Temp Pulse Resp BP Pulse Ox 03/10/17 04:00 98.0 F 82 18 135/76 95 03/10/17 00:00 98.4 F 77 18 122/72 96 03/09/17 20:00 98.6 F 88 18 111/65 95 Weight Weight 3.88 oz I&O: 03/09/17 03/10/17 03/11/17 06:59 06:59 06:59 Intake Total 1280 753.0 Balance 1280 753.0 Result Diagrams: 03/10/17 03:44 03/10/17 03:44 Additional Labs: Accuchecks 03/10/17 03/09/17 03/09/17 06:05 21:26 16:10 POC Glucose 157 H 219 H 150 H 03/09/17 11:30 POC Glucose 145 H Phys Exam - Physical Examination Constitutional: NAD HEENT: PERRLA, moist MMs Neck: no nodes, no JVD Respiratory: no wheezing, no rales, no rhonchi Cardiovascular: RRR, no significant murmur Gastrointestinal: soft, non-tender, no distention, positive bowel sounds Neurological: non-focal, moves all 4 limbs Psychiatric: normal affect, A&O x 3 Skin: no rash, normal turgor Dx/Plan (1) Hypertensive urgency Code(s): I16.0 - HYPERTENSIVE URGENCY Status: Acute (2) Nausea and vomiting Code(s): R11.2 - NAUSEA WITH VOMITING, UNSPECIFIED Status: Acute (3) Urinary tract infection Status: Acute (4) DM type 2 (diabetes mellitus, type 2) Status: Chronic - Plan Nausea and Vomiting 2/2 Campbell-S Enteroccous UTI * Abdominal Xray Series: No obstruction * prn antiemetics * Emperic Abx: Ceftriaxone - discharge home on Levaquin for 10 more days Hypertensive Urgency (resolved) - likely 2/2 UTI and stress of Vomiting * addded prn hydralazine * added clonidine patch DM2 * continue Insulin * f/u accu checks Hypokalemia (replaced) * will replace today * check K and Mg in AM Dispo: Home today. DISCHARGE SUMMARY: [id number]
[2017-03-10 08:15] VITALS: BP 116/73; TEMP 98.5
[2017-03-10] MEDS: Carvedilol 25 MG TAB PO SCH (09:22)
[2017-03-10] MEDS: NIFEdipine XL 60 MG TAB PO SCH (09:22)
[2017-03-10] MEDS: Famotidine/PF 20 mg/2ml Vial SLOW IVP SCH (09:22)
[2017-03-10] MEDS: Insulin Detemir 100 UNITS/ML 30 UNITS in Admixture Fee 1 EACH SC SCH (09:22)
--- NOTE | 2017-03-10 12:23 | DIS ---
DATE OF ADMISSION: 03/08/2017 DATE OF DISCHARGE: 03/10/2017 PRIMARY DISCHARGE DIAGNOSES: 1. Pansensitive enterococcus. 2. Urinary tract infection. 3. Nausea and vomiting. 3. Hypertensive urgency. SECONDARY DISCHARGE DIAGNOSES: 1. Diabetes mellitus type 2. 2. Hypokalemia. HOSPITAL SUMMARY: This is a very pleasant 47-year-old female, who presented with nausea and vomitin g, felt to be secondary to pansensitive enterococcus, urinary tract infection. The patient was joshua clayton with IV ceftriaxone and will be converted to Levaquin orally for 10 more days upon discharge. A n abdominal x-ray series did not reveal any evidence of obstruction and the patient did well with as need antiemetics. Hypertensive emergency was a result of the urinary tract infection and the stress of vomiting. She did well with p.r.n. meds and I had also added a clonidine patch. Her blood pressure is well contro lled today. She denies any chest pain, shortness of breath or headache. With regards to her diabetes mellitus, her insulin was continued. With regards to her hypokalemia, this was replaced. The patient is doing well today and will be discharged home. Discharge physical examination, labs and imaging, please refer to progress note from earlier today. DISCHARGE MEDICATIONS: Reviewed and reconsult, please refer to the chart for details. DISCHARGE PLAN/DISPOSITION. 1. The patient was instructed to establish care with PCP for 1 week follow up. 2. Discharge home on Levaquin for 10 more days for pansensitive urinary tract infection possibly wi th pyelonephritis. 3. Clonidine patch has been added for hypertensive emergency. 4. Diabetic diet. ACTIVITY: As tolerated.
== END 2017-03-10 11:05 | disposition home or self-care (01) ==
LOC: ERS 09:34 → ONC 14:34
PROVIDERS: ADMIT Internal Medicine; ATTEND Internal Medicine
DX: R11.2 Nausea with vomiting, unspecified (principal); N39.0 Urinary tract infection, site not specified; B95.2 Enterococcus as the cause of diseases classified elsewhere; I16.0 Hypertensive urgency; E11.9 Type 2 diabetes mellitus without complications; E87.6 Hypokalemia; Z79.4 Long term (current) use of insulin; Z79.899 Other long term (current) drug therapy; Z90.710 Acquired absence of both cervix and uterus
CPT/HCPCS: 74022; 80048 ×2; 81025; 82962 ×3; 83605; 83690; 83735; 85025 ×2; 87077; 87086; 87186; 93005; 94760; 96365; 96366; 96375 ×3; 96376 ×2; 99285; G0378; 36415; 36416; 80053; 81003; 81015; 84443; 96374; A4216; J0360; J0696; J1815; J2270; J2405; J2550; J7050; S0028

== ENCOUNTER 2017-05-29 17:28 | Emergency (ER) | payer MEDICARE ==
[~2017-05-29 17:28] MED LIST: ISOVUE-370 76%-LOCM 1 ML ONE
[2017-05-29 18:06] LABS: Bilirubin Negative (Negative); Blood, Urine Negative (Negative); Clarity CLOUDY (Clear); Glucose, Urine (Dipstick) 100 mg/dL (Negative); Leukocyte Trace (Negative); Nitrite Negative (Negative); Protein, Urine (Dipstick) 300 mg/dL (Neg-Trace); Specific Gravity, Urine 1.025 (1.002-1.036); pH, Urine 8.5 (5.0-9.0)
[2017-05-29 18:11] LABS: Hyaline Casts/LPF 0-3 HYALINE CAST LPF (0-3 Hyaline)
[2017-05-29 18:21] LABS: Bacteria/HPF 1+ HPF (None Seen); Crystals/HPF 1+ TRIPLE PHOS HPF (Negative)
[2017-05-29 18:56] LABS: #Lymphocytes 1.3 thou/uL (1.20-3.40); #Monocytes 0.2 thou/uL (0.11-0.59); #Neutrophils 8.1 thou/uL (1.40-6.50); %Basophils 0.2 % (0.0-1.0); %Lymphocytes 13.7 % (21.0-51.0); %Monocytes 2.3 % (0.0-10.0); %Neutrophils 83.7 % (42.0-75.0); Hemoglobin 14.2 g/dL (12.0-16.0); Mean Corpuscular HGB CONC 34.7 g/dL (32.0-36.0); Mean Corpuscular Hemoglobin 31.5 pg (27.0-31.0); Mean Corpuscular Volume 90.7 fl (81.0-99.0); Mean Platelet Volume 7.7 fL (7.4-10.4); Platelet Count 229 thou/uL (130-400); RBC Distribution Width 11.3 % (11.5-14.5); White Blood Cell (WBC) Count 9.7 thou/uL (4.8-10.8)
[2017-05-29 19:10] LABS: ALT (SGPT) 56 U/L (8-55); AST (SGOT) 45 U/L (5-34); Albumin 4.2 g/dL (3.5-5.0); Alkaline Phosphatase 192 U/L (40-150); Anion Gap 18 mmol/L (10-20); BUN (Urea Nitrogen) 24 mg/dL (7.0-18.7); Bilirubin, Total 0.5 mg/dL (0.2-1.2); Calc. Creatinine Clearance 0 mL/min (70-130); Calcium 11.1 mg/dL (7.8-10.44); Carbon Dioxide 25 mmol/L (22-29); Chloride 98 mmol/L (98-107); Estimated GFR-MDRD 79; Globulin 4.6 g/dL (2.4-3.5); Glucose 186 mg/dL (70-105); Potassium 3.2 mmol/L (3.5-5.1); Protein, Total 8.8 g/dL (6.0-8.3); Sodium 138 mmol/L (136-145)
[2017-05-29] MEDS ORDERED: Ondansetron HCl/PF 4 MG/2 ML Vial ONE ×2 (20:12→23:48)
[2017-05-29] MEDS ORDERED: Morphine 4 MG/ML VIAL ONE (20:12)
--- NOTE | 2017-05-29 21:12 | ULT ---
EXAM: GALLBLADDER ULTRASOUND 05/29/17 COMPARISON: 10/06/15 HISTORY: Abdominal pain. TECHNIQUE: Utilizing multihertz transducer, sonographic imaging of the right upper quadrant is performed in the longitudinal and transverse plane. FINDINGS: Limited evaluation of the pancreas. Hepatic parenchyma has a normal echotexture. No hepatic masses or intrahepatic biliary dilatation. Co ntour of the hepatic margin is maintained. Main portal vein is patent. Appropriate directional flow. RIGHT KIDNEY: No hydronephrosis. Normal cortical echotexture. 4.2 x 11.2 x 4.7 cm. No sonographic evidence of cholelithiasis, gallbladder wall thickening, or pericholecystic fluid. Neg ative Pressley's sign. Common bile duct diameter is 0.31 cm. IMPRESSION: No sonographic evidence of cholelithiasis or cholecystitis. POS: [facility]
[2017-05-29 21:30] LABS: Base Excess-Venous 6.6 mmol/L (-30.0-30.0); Bicarbonate (HCO3v) 33.7 mmol/L (1.0-85.0); CO2 Tension (PvCO2) 56.1 mmHg (41.0-51.0); Calcium, Ionized 1.17 mmol/L (1.12-1.32); Hemoglobin - Calc 15.9 g/dL (12.0-18.0); O2 Tension (PvO2) 28.7 mmHg (35.0-45.0); Potassium 3.5 mmol/L (3.4-4.7); T. Carbon Dioxide 35.4 mmol/L (1.0-85.0); pH (Venous) 7.387 (7.35-7.45); vO2 Saturation-calc 51.6 % (0.0-100.0)
[2017-05-29] MEDS ORDERED: Labetalol HCl 100 MG/20 ML VIAL ONE (22:28)
[2017-05-29] MEDS ORDERED: Potassium Chloride 10 MEQ TAB PO SCH (23:30)
--- NOTE | 2017-05-29 23:45 | CT ---
ABDOMEN CT WITH CONTRAST PELVIC CT WITH CONTRAST 05/29/17 COMPARISON: None. HISTORY: Abdominal pain. Nausea and vomiting. Cramping. COMPARISON: None. TECHNIQUE: An Abdomen and pelvic CT are performed with IV contrast. Enteric contrast was not administered. Coron al reformatted images are submitted for interpretation. FINDINGS: ABDOMEN CT: Lung bases are clear. Heart is enlarged. No significant pericardial fluid. The descending thoracic ao rta and abdominal aorta have a normal caliber. No periaortic fat stranding. Intra and extrahepatic portal vein is patent. Nonspecific periportal edema. The liver, spleen, pancreas, and adrenal glands have appropriate enhancement. No gastrohepatic, retrocrural or periportal lymphadenopathy. Symmetric enhancement of the kidneys. Bilaterally, no obstructive uropathy. Decreased intra-abdominal fat limits evaluation for inflammatory change. No mesenteric mass, lymphadenopathy or free air. Smal l amount of fluid in both pericolic gutters. Limited evaluation of the alimentary canal due to lack o f oral contrast. Mild mucosal hyperemia of the stomach. Questionable fluid attenuation in the gastric antrum. Mild hyperemia of the duodenum cannot be excluded. Mild mucosal prominence. Small bowel loop s have an overall normal caliber. No evidence of small bowel obstruction. Limited evaluation of the i leocecal junction. Limited evaluation of the appendix. Grossly, these areas appear to be unremarkable . Fecal material in a nondistended, nondilated colon. Gallbladder is unremarkable. PELVIC CT: Surgically absent uterus. No pelvic mass, lymphadenopathy, free air or free fluid. No lytic or blastic lesions in the osseous structures. IMPRESSION: 1. Possible gastritis and duodenitis. 2. No obvious bowel obstruction. 3. Grossly unremarkable ileocecal junction. Suggestion of a possible normal appearing appendix i n the right lower quadrant. Evaluation is limited due to technique. 4. Nonspecific periportal edema. POS: [facility]
[2017-05-30 00:06] LABS: BHCG - Serum Negative (NEGATIVE); Pregs Control Background? CLEAR/WHITE (CLR/WHITE); Pregs Control Bar Appear? YES (CONTROL BAR)
[2017-05-30] MEDS ORDERED: Ondansetron ODT 4 MG TAB ONE (00:14)
--- NOTE | 2017-05-31 15:26 | EKG ---
Test Reason : Blood Pressure : / mmHG Vent. Rate : 115 BPM Atrial Rate : 115 BPM P-R Int : 156 ms QRS Dur : 058 ms QT Int : 330 ms P-R-T Axes : 070 066 078 degrees QTc Int : 456 ms Sinus tachycardia with Premature atrial complexes Biatrial enlargement Septal infarct , age undetermined Abnormal ECG Confirmed by KJ AREVALO M.D. ([id number]), fan mail editor IRA KEITA ([id number]) on 05/31/2017 3:26:23 PM Referred By: Confirmed By:KJ AREVALO M.D.
== END 2017-05-30 00:20 | disposition home or self-care (01) ==
LOC: ERS 17:28
DX: E11.65 Type 2 diabetes mellitus with hyperglycemia (principal); E87.6 Hypokalemia; I10 Essential (primary) hypertension
CPT/HCPCS: 36415; 36416; 74177; 76705; 80053; 81003; 81015; 82330; 82803; 84703; 85025; 93005; 96361; 96374; 96375; 96376; J2270; J2405; Q0162

== ENCOUNTER 2017-05-31 20:24 | Emergency (ER) | payer MEDICARE ==
[2017-05-31 21:01] LABS: #Basophils 0.1 thou/uL (0.0-0.2); #Lymphocytes 2.8 thou/uL (1.20-3.40); #Monocytes 0.8 thou/uL (0.11-0.59); %Eosinophils 0.2 % (0.0-10.0); %Lymphocytes 31.7 % (21.0-51.0); %Monocytes 9.6 % (0.0-10.0); %Neutrophils 57.5 % (42.0-75.0); Hemoglobin 14.4 g/dL (12.0-16.0); Mean Corpuscular HGB CONC 34.5 g/dL (32.0-36.0); Mean Corpuscular Hemoglobin 31.1 pg (27.0-31.0); Mean Corpuscular Volume 90.2 fl (81.0-99.0); Mean Platelet Volume 7.2 fL (7.4-10.4); Platelet Count 223 thou/uL (130-400); RBC Distribution Width 11.1 % (11.5-14.5); Red Blood Cell (RBC) Count 4.61 mill/uL (4.20-5.40); White Blood Cell (WBC) Count 8.8 thou/uL (4.8-10.8)
[2017-05-31 21:23] LABS: ALT (SGPT) 44 U/L (8-55); AST (SGOT) 47 U/L (5-34); Albumin 3.7 g/dL (3.5-5.0); Alkaline Phosphatase 170 U/L (40-150); Anion Gap 11 mmol/L (10-20); BUN (Urea Nitrogen) 18 mg/dL (7.0-18.7); Bilirubin, Total 0.9 mg/dL (0.2-1.2); Calc. Creatinine Clearance 0 mL/min (70-130); Calcium 9.6 mg/dL (7.8-10.44); Carbon Dioxide 27 mmol/L (22-29); Chloride 94 mmol/L (98-107); Estimated GFR-MDRD 74; Globulin 4.2 g/dL (2.4-3.5); Glucose 256 mg/dL (70-105); Potassium 3.1 mmol/L (3.5-5.1); Protein, Total 7.9 g/dL (6.0-8.3); Sodium 129 mmol/L (136-145)
[2017-05-31 21:54] LABS: Magnesium 1.4 mg/dL (1.6-2.6)
[2017-05-31 21:59] LABS: CKMB 1.9 ng/mL (0-6.6); Troponin I Less than 0.010 ng/mL (< 0.028)
--- NOTE | 2017-05-31 22:07 | RAD ---
CHEST ONE VIEW 05/31/17 HISTORY: Cough. COMPARISON: Chest one view 12/28/16. FINDINGS: Heart size is enlarged. No pneumothorax. No effusion. No acute osseous abnormality. Mild mid thoracic spine degenerative changes. IMPRESSION: No acute intrathoracic abnormality. Mild cardiomegaly. POS: [facility]
[2017-05-31] MEDS ORDERED: Ondansetron HCl/PF 4 MG/2 ML Vial ONE (22:29)
[2017-05-31] MEDS ORDERED: Morphine 2 MG/ML SYRINGE ONE (22:29)
--- NOTE | 2017-05-31 23:23 | CT ---
CT ABDOMEN AND PELVIS WITH CONTRAST 05/31/17 HISTORY: Abdominal pain. COMPARISON: CT abdomen and pelvis 05/29/17. FINDINGS: Lung bases are clear. No pericardial effusion. Urinary bladder is moderately distended. No dilated loops of large or small bowel. The spleen and adr enal glands are unremarkable. Difficult to evaluate. It is a possibility of some cystic foci of the pancreatic body. Aortoiliac contour is normal. The appendix is visualized and is normal. Skeleton is unremarkable. Celiac trunk and superior mesenteric arteries are patent. IMPRESSION: 1. No new acute inflammatory process abdomen or pelvis. No change from two days ago. 2. Possible hypodense cystic foci of the pancreas. Nonemergent MRI with pancreatic protocol in six months is recommended. 3. The previously described gastritis and possible duodenitis is similar with mild submucosal ed awilda and mild mucosal hyperenhancement although could be sequela of phase of contrast. POS: [facility]
[2017-06-01 00:42] LABS: Bilirubin Negative (Negative); Blood, Urine Small (Negative); Clarity CLEAR (Clear); Glucose, Urine (Dipstick) 250 mg/dL (Negative); Leukocyte Negative (Negative); Nitrite Negative (Negative); Protein, Urine (Dipstick) 100 mg/dL (Neg-Trace); Specific Gravity, Urine 1.025 (1.002-1.036)
[2017-06-01 00:44] LABS: Bacteria/HPF None Seen HPF (None Seen); Hyaline Casts/LPF 0-3 HYALINE CAST LPF (0-3 Hyaline); Pathc Cast-AUWi Flag 0.13 (0-2.49); Squamous Epithelial 0-3 HPF (0-3)
[2017-06-01] MEDS ORDERED: Magnesium Sulfate 2 GM/NS 0.9% 50 ML BAG ONE (01:57)
[2017-06-01] MEDS ORDERED: Potassium Chloride 20 MEQ TAB ONE (01:57)
[2017-06-01] MEDS ORDERED: Promethazine HCl 25 MG/ML VIAL ONE (01:57)
== END 2017-06-01 03:35 | disposition home or self-care (01) ==
LOC: ERS 20:24
DX: N12 Tubulo-interstitial nephritis, not specified as acute or chronic (principal); E11.9 Type 2 diabetes mellitus without complications; I10 Essential (primary) hypertension; Z79.4 Long term (current) use of insulin; Z79.899 Other long term (current) drug therapy
CPT/HCPCS: 36415; 36416; 71045; 74177; 80053; 81003; 81015; 82010; 82553; 83605; 83690; 83735; 83930; 84484; 85025; 96361; 96365; 96368; 96375; J0696; J2270; J2405; J2550; J3475

== ENCOUNTER 2017-08-21 08:52 | Emergency (ER) | payer MEDICARE ==
[2017-08-21] MEDS ORDERED: Ondansetron HCl/PF 4 MG/2 ML Vial ONE ×2 (09:34→10:56)
[2017-08-21 09:39] LABS: #Lymphocytes 1.4 thou/uL (1.20-3.40); #Neutrophils 9.2 thou/uL (1.40-6.50); %Basophils 0.4 % (0.0-1.0); %Eosinophils 0.2 % (0.0-10.0); %Lymphocytes 11.7 % (21.0-51.0); %Monocytes 8.6 % (0.0-10.0); %Neutrophils 79.1 % (42.0-75.0); Mean Corpuscular HGB CONC 34.2 g/dL (32.0-36.0); Mean Corpuscular Hemoglobin 30.5 pg (27.0-31.0); Mean Corpuscular Volume 89.2 fl (81.0-99.0); Mean Platelet Volume 7.4 fL (7.4-10.4); Platelet Count 225 thou/uL (130-400); RBC Distribution Width 11.1 % (11.5-14.5); Red Blood Cell (RBC) Count 4.58 mill/uL (4.20-5.40); White Blood Cell (WBC) Count 11.7 thou/uL (4.8-10.8)
[2017-08-21 09:43] LABS: Bilirubin Negative (Negative); Blood, Urine Moderate (Negative); Clarity CLEAR (Clear); Glucose, Urine (Dipstick) 500 mg/dL (Negative); Leukocyte Negative (Negative); Nitrite Negative (Negative); Protein, Urine (Dipstick) 300 mg/dL (Neg-Trace); Specific Gravity, Urine 1.031 (1.002-1.036); pH, Urine 7.5 (5.0-9.0)
[2017-08-21 09:45] LABS: Bacteria/HPF Rare-Few HPF (None Seen); Hyaline Casts/LPF 0-3 HYALINE CAST LPF (0-3 Hyaline); Pathc Cast-AUWi Flag 0.43 (0-2.49); RBC/HPF 21-50 HPF (0-3)
[2017-08-21 09:55] LABS: Renal Epithelial 0-3 HPF (0-3); Transitional Epithelial 0-3 HPF (0-3)
[2017-08-21 10:00] LABS: ALT (SGPT) 26 U/L (8-55); AST (SGOT) 19 U/L (5-34); Albumin 3.9 g/dL (3.5-5.0); Alkaline Phosphatase 201 U/L (40-150); Anion Gap 17 mmol/L (10-20); BUN (Urea Nitrogen) 19 mg/dL (7.0-18.7); Bilirubin, Total 0.7 mg/dL (0.2-1.2); Calc. Creatinine Clearance 0 mL/min (70-130); Calcium 10.4 mg/dL (7.8-10.44); Carbon Dioxide 27 mmol/L (22-29); Chloride 97 mmol/L (98-107); Estimated GFR-MDRD 70; Globulin 4.9 g/dL (2.4-3.5); Glucose 315 mg/dL (70-105); Lipase 6 U/L (8-78); Potassium 3.5 mmol/L (3.5-5.1); Protein, Total 8.8 g/dL (6.0-8.3); Sodium 137 mmol/L (136-145)
[2017-08-21] MEDS ORDERED: Promethazine HCl 25 MG/ML VIAL ONE (11:55)
[2017-08-21] MEDS ORDERED: Metoclopramide HCl 10 MG/2 ML VIAL ONE (13:55)
[2017-08-21 15:25] LABS: Amphetamine Not Detected (NotDetected); Barbiturates Screen Not Detected (NotDetected); Benzodiazepine Screen Not Detected (NotDetected); Cocaine Metabolite Screen Not Detected (NotDetected); Medtox Control Line Valid? VALID (VALID); Medtox Reader # READER 1; Methadone Not Detected (NotDetected); Methamphetamine Not Detected (NotDetected); Opiate Screen Not Detected (NotDetected); Oxycodone Screen Not Detected (NotDetected); Phencyclidine (PCP) Not Detected (NotDetected); THC/Cannabinoid Screen Not Detected (NotDetected); Tricyclic Screen Not Detected (NotDetected)
[2017-08-21 16:22] LABS: CKMB 0.8 ng/mL (0-6.6); Troponin I Less than 0.010 ng/mL (< 0.028)
--- NOTE | 2017-08-30 22:58 | EKG ---
Test Reason : TCHY Blood Pressure : / mmHG Vent. Rate : 110 BPM Atrial Rate : 110 BPM P-R Int : 136 ms QRS Dur : 076 ms QT Int : 332 ms P-R-T Axes : 067 063 080 degrees QTc Int : 449 ms Sinus tachycardia Biatrial enlargement Anteroseptal infarct , age undetermined Abnormal ECG Confirmed by EDVIN SOSA, DEANA ([id number]), primer expeditor and drier WILLIAM HATFIELD ([id number]) on 08/30/2017 10:58:03 PM Referred By: Confirmed By:DEANA PARDO MD
== END 2017-08-21 18:08 | disposition home or self-care (01) ==
LOC: ERS 08:52
DX: R11.2 Nausea with vomiting, unspecified (principal); E11.9 Type 2 diabetes mellitus without complications; I10 Essential (primary) hypertension; F32.9 Major depressive disorder, single episode, unspecified; Z79.899 Other long term (current) drug therapy; Z79.4 Long term (current) use of insulin
CPT/HCPCS: 36416; 80053; 80306; 81003; 81015; 82553; 83690; 84484; 85025; 93005; 96361; 96365; 96367; 96375; 96376; J2405; J2550; J2765

== ENCOUNTER 2017-10-10 08:18 | Emergency (ER) | payer MEDICARE ==
[2017-10-10] MEDS ORDERED: Ondansetron ODT 8 MG TAB ONE (08:45)
[2017-10-10 09:12] LABS: #Lymphocytes 0.9 thou/uL (1.20-3.40); #Monocytes 0.5 thou/uL (0.11-0.59); #Neutrophils 11.1 thou/uL (1.40-6.50); %Basophils 0.1 % (0.0-1.0); %Eosinophils 0.1 % (0.0-10.0); %Lymphocytes 7.3 % (21.0-51.0); %Monocytes 3.7 % (0.0-10.0); %Neutrophils 88.8 % (42.0-75.0); Hemoglobin 14.5 g/dL (12.0-16.0); Mean Corpuscular HGB CONC 33.6 g/dL (32.0-36.0); Mean Corpuscular Hemoglobin 29.2 pg (27.0-31.0); Mean Corpuscular Volume 86.9 fl (81.0-99.0); Mean Platelet Volume 8.7 fL (7.4-10.4); Platelet Count 298 thou/uL (130-400); RBC Distribution Width 12.2 % (11.5-14.5); Red Blood Cell (RBC) Count 4.98 mill/uL (4.20-5.40); White Blood Cell (WBC) Count 12.6 thou/uL (4.8-10.8)
[2017-10-10 09:40] LABS: CKMB 1.2 ng/mL (0-6.6); Troponin I Less than 0.010 ng/mL (< 0.028)
[2017-10-10 10:17] LABS: Bilirubin Negative (Negative); Blood, Urine Large (Negative); Clarity CLEAR (Clear); Glucose, Urine (Dipstick) >=1000 mg/dL (Negative); Leukocyte Negative (Negative); Nitrite Negative (Negative); Protein, Urine (Dipstick) 300 mg/dL (Neg-Trace); Specific Gravity, Urine 1.035 (1.002-1.036); Urobilinogen 0.2 mg/dL (0.2-1.0)
[2017-10-10] MEDS ORDERED: Lisinopril 10 MG TAB ONE (10:18)
[2017-10-10 10:19] LABS: Bacteria/HPF None Seen HPF (None Seen); Hyaline Casts/LPF 7-10 HYALINE CAST LPF (0-3 Hyaline); Pathc Cast-AUWi Flag 1.74 (0-2.49)
[2017-10-10 10:30] LABS: Renal Epithelial 0-3 HPF (0-3); Transitional Epithelial 0-3 HPF (0-3)
[2017-10-10] MEDS ORDERED: Hydrochlorothiazide 25 MG TAB PO SCH (10:45)
[2017-10-10 10:46] LABS: ALT (SGPT) 19 U/L (8-55); AST (SGOT) 18 U/L (5-34); Albumin 3.4 g/dL (3.5-5.0); Alkaline Phosphatase 201 U/L (40-150); Anion Gap 17 mmol/L (10-20); BUN (Urea Nitrogen) 31 mg/dL (7.0-18.7); Bilirubin, Total 0.5 mg/dL (0.2-1.2); CK (CPK) 75 U/L (29-168); Calc. Creatinine Clearance 0 mL/min (70-130); Calcium 9.2 mg/dL (7.8-10.44); Carbon Dioxide 28 mmol/L (22-29); Chloride 93 mmol/L (98-107); Estimated GFR-MDRD 69; Globulin 4.6 g/dL (2.4-3.5); Glucose 423 mg/dL (70-105); Lipase 8 U/L (8-78); Sodium 135 mmol/L (136-145)
[2017-10-10 10:50] LABS: Potassium 2.9 mmol/L (3.5-5.1)
[2017-10-10] MEDS ORDERED: Potassium Chloride 20 MEQ TAB ONE (10:51)
[2017-10-10 11:52] LABS: Base Excess-Venous 5.2 mmol/L (0 (+/- 2.5)); Bicarbonate (HCO3v) 29.3 mmol/L (1.0-85.0); CO2 Tension (PvCO2) 40.2 mmHg (41.0-51.0); Calcium, Ionized 1.01 mmol/L (1.12-1.32); O2 Tension (PvO2) 104.5 mmHg (35.0-45.0); T. Carbon Dioxide 30.5 mmol/L (1.0-85.0); pH (Venous) 7.471 (7.35-7.45); vO2 Saturation-calc 98.4 % (94-98)
[2017-10-10] MEDS ORDERED: Insulin Regular 300 UNITS/3 ML VIAL ONE ×2 (11:52→13:36)
[2017-10-10] MEDS ORDERED: Metoclopramide HCl 10 MG/2 ML VIAL ONE (12:51)
== END 2017-10-10 14:38 | disposition home or self-care (01) ==
LOC: ERS 08:18
DX: R11.2 Nausea with vomiting, unspecified (principal); E11.65 Type 2 diabetes mellitus with hyperglycemia; I10 Essential (primary) hypertension; F32.9 Major depressive disorder, single episode, unspecified; Z79.4 Long term (current) use of insulin; Z79.899 Other long term (current) drug therapy
CPT/HCPCS: 36415; 36416; 80053; 81003; 81015; 82010; 82330; 82553; 82803; 83690; 84484; 85025; 93005; 96361; 96365; 96375; 96376; J1815; J2765

== ENCOUNTER 2017-11-12 13:31 | Emergency (ER) | payer MEDICARE | END 2017-11-12 14:19 | disposition home or self-care (01) | LOC: ERS 13:31 | DX: K02.9 Dental caries, unspecified (principal); K03.81 Cracked tooth; E11.9 Type 2 diabetes mellitus without complications; I10 Essential (primary) hypertension; F32.9 Major depressive disorder, single episode, unspecified; Z79.899 Other long term (current) drug therapy; Z79.4 Long term (current) use of insulin | CPT/HCPCS: 99282 ==

== ENCOUNTER 2017-11-17 19:08 | Inpatient (IN) | payer MEDICARE ==
[2017-11-17] MEDS ORDERED: Ondansetron ODT 8 MG TAB ONE (19:48)
[2017-11-17] MEDS ORDERED: Metoclopramide HCl 10 MG/2 ML VIAL ONE (19:48)
[2017-11-17 19:55] LABS: #Monocytes 0.5 thou/uL (0.11-0.59); #Neutrophils 4.8 thou/uL (1.40-6.50); %Basophils 0.7 % (0.0-1.0); %Eosinophils 0.2 % (0.0-10.0); %Lymphocytes 27.4 % (21.0-51.0); %Monocytes 6.5 % (0.0-10.0); %Neutrophils 65.2 % (42.0-75.0); Hemoglobin 15.6 g/dL (12.0-16.0); Mean Corpuscular HGB CONC 34.7 g/dL (32.0-36.0); Mean Corpuscular Volume 86.5 fL (78.0-98.0); Mean Platelet Volume 7.5 fL (7.4-10.4); Platelet Count 310 thou/uL (130-400); RBC Distribution Width 11.9 % (11.5-14.5); Red Blood Cell (RBC) Count 5.19 mill/uL (4.20-5.40); White Blood Cell (WBC) Count 7.3 thou/uL (4.8-10.8)
[2017-11-17 20:10] LABS: ALT (SGPT) 19 U/L (8-55); AST (SGOT) 16 U/L (5-34); Albumin 4.2 g/dL (3.5-5.0); Alkaline Phosphatase 253 U/L (40-150); Anion Gap 20 mmol/L (10-20); BUN (Urea Nitrogen) 44 mg/dL (7.0-18.7); Bilirubin, Total 0.5 mg/dL (0.2-1.2); Calc. Creatinine Clearance 0 mL/min (70-130); Calcium 10.8 mg/dL (7.8-10.44); Carbon Dioxide 27 mmol/L (22-29); Chloride 89 mmol/L (98-107); Estimated GFR-MDRD 36; Globulin 5.5 g/dL (2.4-3.5); Glucose 448 mg/dL (70-105); Lipase 13 U/L (8-78); Potassium 3.4 mmol/L (3.5-5.1); Protein, Total 9.7 g/dL (6.0-8.3); Sodium 133 mmol/L (136-145)
--- NOTE | 2017-11-17 22:04 | CT ---
CT ABDOMEN WITH CONTRAST CT PELVIS WITH CONTRAST: DATE: 11/17/2017 TIME: 8:50 p.m. HISTORY: A 47-year-old female with nausea and intractable vomiting. COMPARISON: 05/31/2017 TECHNIQUE: IV injection of iodinated contrast media: Isovue-370 60 mL. Oral contrast media: Not administered. FINDINGS: Heterogeneously diffusely low hepatic attenuation, consistent with heterogeneous fatty liver. No spl enomegaly. Normal abdominal aorta, superior mesenteric artery, bilateral renal arteries, and adrenal glands. No hydronephrosis or evidence of pyelonephritis in the bilateral kidneys. Small, 1 cm prob able cortical cyst at the lateral aspect of the right renal upper-mid pole. No other renal abnormali ty. This CT was acquired during the arterial phase, with suboptimal opacification of the venous structure s. There are faint elongated filling defects within the main portal vein and in the left and right p ortal veins. The appearance is similar to that of 05/31/2017, which was also an arterial phase study . Similar finding of superior mesenteric vein. There is also again demonstration of an approximately 1 cm hyperenhancing lesion in the right lobe of the liver, in hepatic segment 6, with irregular, ill defined margins (NELIA). There is no small sahara l dilation. There are focal regions of a large amount of stool, including at the rectum, the lateral transverse colon, the splenic flexure, and, to a lesser degree, the ascending colon, with intervenin g regions of collapsed colon. No ascites or pneumoperitoneum identified. Apparently, a new finding of diffuse mural thickening of the urinary bladder that could be due to incomplete distention on the current CT, but cystitis is a possibility. Lack of visceral fat, and the arterial phase of the study, limit the evaluation. Only the proximal p ortion of a normal caliber appendix is visualized. The rest of it is poorly visualized. Again demon strated is the increased thickness and increased enhancement of the gastric mucosa. The pancreas is diffusely slightly low in attenuation and slightly small. IMPRESSION: 1. Multiple filling defects in the portal vein, questionable for nonoccluding (chronic?) portal vein thrombosis. Alternatively, this could be due to admixture of opacified and unopacified blood during this study, which was acquired during the arterial phase. 2. Transient hepatic attenuation difference (NELIA) in the right hepatic lobe (due to local mismatch in hepatic arterial versus portal venous blood supply, which have several different pathogenic mechan isms). 3. Heterogeneous hepatic steatosis. 4. Questionable cystitis. 5. Nonspecific appearance of slightly diffusely low attenuation of the pancreas. Recommend correlat ion with serum amylase and lipase. 6. Recommend multiphase CT of the liver with and without contrast (which should be performed 24 to 7 2 hours after this scan). ERNST Rivas POS: [facility]
[2017-11-17] MEDS ORDERED: Promethazine HCl 25 MG/ML VIAL ONE (22:48)
[2017-11-17 23:23] LABS: ALT (SGPT) 18 U/L (8-55); AST (SGOT) 17 U/L (5-34); Albumin 3.9 g/dL (3.5-5.0); Alkaline Phosphatase 233 U/L (40-150); Anion Gap 17 mmol/L (10-20); BUN (Urea Nitrogen) 42 mg/dL (7.0-18.7); Bilirubin, Total 0.5 mg/dL (0.2-1.2); Calc. Creatinine Clearance 0 mL/min (70-130); Carbon Dioxide 25 mmol/L (22-29); Chloride 94 mmol/L (98-107); Estimated GFR-MDRD 46; Glucose 412 mg/dL (70-105); Potassium 3.4 mmol/L (3.5-5.1); Protein, Total 8.9 g/dL (6.0-8.3); Sodium 133 mmol/L (136-145)
[2017-11-18] MEDS ORDERED: Insulin Regular 300 UNITS/3 ML VIAL ONE (00:11)
[2017-11-18] MEDS ORDERED: Ondansetron HCl/PF 4 MG/2 ML Vial IVP PRN ×2 (01:36→04:12)
[2017-11-18] MEDS ORDERED: Acetaminophen 325 MG TAB PO PRN ×2 (01:36→04:13)
[2017-11-18] MEDS ORDERED: Ondansetron ODT 4 MG TAB SL PRN ×2 (01:36→04:12)
[2017-11-18 01:50] VITALS: BMI 22.8
[2017-11-18] MEDS ORDERED: Dextrose 50% Abboject 50 ML SYRINGE IVP PRN (04:14)
[2017-11-18] MEDS ORDERED: Metoclopramide HCl 10 MG/2 ML VIAL IVP PRN (04:14)
[2017-11-18] MEDS ORDERED: Dextrose 5% in Water 1,000 ML IV PRN (04:14)
[2017-11-18] MEDS: Sodium Chloride 0.9% 1,000 ML IV SCH ×2 (04:48→17:39)
[2017-11-18] MEDS: Insulin Regular 300 UNITS/3 ML VIAL SC PRN ×3 (04:56→17:34)
[2017-11-18] MEDS ORDERED: Non-Formulary Item 1 EACH (Insulin Glargine,Hum.Rec.Anlog [Lantus Solostar] 30 UNIT) SQ SCH (09:00)
--- NOTE | 2017-11-18 09:18 | HP ---
CHIEF COMPLAINT: Vomiting. HISTORY OF PRESENT ILLNESS: The patient is a 47-year-old female who has a history of diabetes. She also has had multiple previous admissions with similar symptoms of nausea and vomiting. The patient reports that they are all typically similar. The patient reports she had the onset of nausea and vom iting yesterday. She had about 6-7 episodes of nausea and vomiting. It was initially bilious, but w hen she arrived here, she felt like it might have been more red or dark in color. She had some modes t lower abdominal pain which she described as sharp in nature. In the emergency department, the yasmine ent had several rounds of antiemetics, but continued to have some vomiting. Since she has had some fl uids she presently feels like she is doing somewhat better. She does not feel nauseated and feels li ke she could actually eat something. PAST MEDICAL HISTORY: Notable for the diabetes, hypertension, and the recurrent episodes of nausea a nd vomiting. She also had an endoscopy performed in 2014, which revealed some esophagitis. FAMILY HISTORY: Notable for gastric cancer in her mother. Father had no medical problems. SOCIAL HISTORY: The patient is a nonsmoker, nondrinker. She is single. She has several children. REVIEW OF SYSTEMS: An 11 system review was negative except for those things mentioned in the history of present illness. ALLERGIES: None. MEDICATIONS: Magnesium oxide 400 mg p.o. b.i.d., Lantus 30 units subcu b.i.d., Pravastatin 20 mg at bedtime, lisinopril/HCTZ 1 p.o. daily. PHYSICAL EXAMINATION: VITAL SIGNS: Temperature is 98.5, pulse 109, and respirations 16. O2 sat 100% on room air, BP 188/1 00. GENERAL APPEARANCE: A very small stature age appropriate female in no acute distress. She is awake, alert, oriented, very pleasant, cooperative. HEENT: PERRL. No OP lesions. NECK: Supple and symmetric without lymphadenopathy. CARDIOVASCULAR: Regular rate and rhythm without murmurs, gallops or rubs. LUNGS: Clear to auscultation bilaterally with no wheezes or rales. ABDOMEN: Soft, nontender, nondistended, positive bowel sounds, no masses, no organomegaly. SKIN: Warm and dry. LABORATORY DATA: Sodium is 133, potassium 3.4, chloride 94, CO2 is 25, BUN 42, creatinine is 1.45, g lucose is 283 with prior readings as high as 448, calcium is 10.0, alkaline phosphatase 233, total se rum protein is 8.9, globulin is 5.0, white count 7.3, hemoglobin 15.6, platelets 310. Initial beta h ydroxybutyrate was elevated at 1.11. CT abdomen reveals multiple filling defects in the portal vein, questionable for nonoccluding chronic portal vein thrombosis. There is also some transient hepatic attenuation difference in the right he patic lobe which is apparently not new from May, some heterogeneous steatosis, questionable cysti tis, nonspecific appearance slightly diffusely low attenuation in the pancreas. ASSESSMENT AND PLAN: 1. Nausea and vomiting. This appears to be slightly improved. Concerning for the possibility of ga stroparesis given the recurrent nature. The patient is on prokinetic agent presently. We will consu lt GI. We will go ahead and advance her diet. I suspect she will need a gastric emptying study when she is over the acute episode. 2. Diabetes mellitus. We will continue with the patient's usual regimen and add some sliding scale insulin. 3. Mild acidosis. The patient has elevated beta hydroxybutyrate, but her CO2 is normal. We will co ntinue to aggressively hydrate and aggressively manage her blood sugars. 4. Abnormal finding on CT of the liver. We will get input from GI, although it appears to be nonacu te. 5. Possible cystitis on the CT. We will obtain urinalysis. 6. It appears that the patient may have had some inflammation of the pancreas previous. It does not appear that she has any acute pancreatitis presently. DISPOSITION: If we can hydrate the patient adequately and she is able to take p.o. as well and her b lood sugars are manageable we will consider discharge later today.
[2017-11-18] MEDS: Pantoprazole 40 MG VIAL IVP SCH ×2 (09:19→20:33)
[2017-11-18] MEDS: Lisinopril/Hydrochlorothiazide 20 mg/12.5 mg Tablet PO SCH (09:19)
[2017-11-18] MEDS: Magnesium Oxide 400 MG TAB PO SCH ×2 (09:19→20:33)
[2017-11-18] MEDS: Insulin Glargine 30 UNITS in Pre-Filled Syringe 1 EACH SC SCH ×2 (10:56→20:33)
[2017-11-18] MEDS: Labetalol HCl 100 MG/20 ML VIAL SLOW IVP PRN ×3 (11:38→20:34)
[2017-11-18 11:58] LABS: Bilirubin Negative (Negative); Blood, Urine Moderate (Negative); Clarity TURBID (Clear); Glucose, Urine (Dipstick) >=1000 mg/dL (Negative); Leukocyte Large (Negative); Nitrite Negative (Negative); Protein, Urine (Dipstick) 300 mg/dL (Neg-Trace); Specific Gravity, Urine 1.038 (1.002-1.036); pH, Urine 5.5 (5.0-9.0)
[2017-11-18 12:00] LABS: Bacteria/HPF 4+ HPF (None Seen); Hyaline Casts/LPF 0-3 HYALINE CAST LPF (0-3 Hyaline); Squamous Epithelial 0-3 HPF (0-3)
[2017-11-18 12:12] LABS: Yeast-AUWi Flag 26.9 (0-25.0)
[2017-11-18 12:18] LABS: Yeast-All Forms None Seen HPF (None Seen)
--- NOTE | 2017-11-18 16:32 | PDOC.PN ---
- Subjective Encounter Start Date: 11/18/17 Encounter Start Time: 08:00 Saw patient this morning and again this afternoon. Feeling some better. Tolerating po's better. - Objective Vital Signs & Weight: Vital Signs (12 hours) Temp Pulse Resp BP BP Pulse Ox 11/18/17 15:25 98.9 F 101 H 18 177/89 H 95 11/18/17 14:21 105 H 210/122 H 11/18/17 12:49 107 H 188/93 H 11/18/17 11:18 97.6 F 114 H 20 190/134 H 93 L 11/18/17 07:49 98.5 F 109 H 16 11/18/17 07:45 98.5 F 110 H 16 188/100 H 100 11/18/17 04:45 98.8 F 104 H 16 171/94 H 96 Weight Weight 105 lb 4.8 oz I&O: 11/17/17 11/18/17 11/19/17 06:59 06:59 06:59 Intake Total 128 500 Output Total 200 Balance 128 300 Result Diagrams: 11/17/17 19:47 11/17/17 22:54 Additional Labs: Accuchecks 11/18/17 11/18/17 11/18/17 11:06 04:49 00:18 POC Glucose 284 H 283 H 349 H Phys Exam - Physical Examination Constitutional: NAD Respiratory: no wheezing, no rales, no rhonchi, clear to auscultation bilateral Cardiovascular: RRR, no significant murmur Gastrointestinal: soft, non-tender, no distention, positive bowel sounds Musculoskeletal: no edema Dx/Plan (1) Nausea and vomiting Code(s): R11.2 - NAUSEA WITH VOMITING, UNSPECIFIED Status: Acute Plan: Improving. May be secondary to infection or gastroparesis. Treat infection. Follow up with GI as outpatient. (2) Urinary tract infection Status: Acute Plan: Had cystitis on CT. UA looks like uti. Will give Rocephin. (3) DM type 2 (diabetes mellitus, type 2) Status: Chronic Plan: Continue with the home regimen and SSI. Hyperglycemia may be related to the infection. (4) HTN (hypertension) Code(s): I10 - ESSENTIAL (PRIMARY) HYPERTENSION Status: Chronic Plan: Has required a couple of doses of IV medication today. She has been asymptomatic. Continue with PRN - Plan * Given the UTI with acidosis, hyperglycemia and n/v, I am keeping her another day to continue to hydrate, manage hyperglycemia and severe hypertension.
[2017-11-18] MEDS ORDERED: cefTRIAXone\\ROCEPHIN 1 GM in Sodium Chloride 0.9% 100 ML IVPB SCH (17:00)
[2017-11-18] MEDS ORDERED: Pravastatin Sodium 20 MG TAB PO SCH (21:00)
[2017-11-18] MEDS ORDERED: Simvastatin 5 MG TAB PO SCH (21:00)
[2017-11-19] MEDS: Labetalol HCl 100 MG/20 ML VIAL SLOW IVP PRN ×2 (02:29→07:51)
[2017-11-19 04:42] VITALS: BP 190/108
[2017-11-19] MEDS: Sodium Chloride 0.9% 1,000 ML IV SCH (07:44)
[2017-11-19] MEDS: Pantoprazole 40 MG VIAL IVP SCH (07:45)
[2017-11-19] MEDS: Magnesium Oxide 400 MG TAB PO SCH (07:45)
[2017-11-19] MEDS: Insulin Glargine 30 UNITS in Pre-Filled Syringe 1 EACH SC SCH (07:46)
[2017-11-19 08:29] VITALS: TEMP 97.5
--- NOTE | 2017-11-19 09:25 | CON ---
DATE OF CONSULTATION: 11/18/2017 REFERRING PHYSICIAN: Shantanu Farrell M.D. REASON FOR CONSULTATION: Nausea, vomiting, and mild abdominal discomfort. HISTORY OF PRESENT ILLNESS: Ms. Faith Monique is a very pleasant 47-year-old -[place] femal e with history of diabetes mellitus, hypertension. The patient presents to the hospital with nausea and vomiting over the last 24 hours. The patient woke up with abdominal discomfort. vomiting some blood-stained fluid. The patient has had similar episodes in the past. She has seen me in 2014 for similar symptoms and had a EGD done. The EGD revealed grade 2 esophagitis. It was felt that jorge rodas mostly had gastroparesis. The patient was taking metoclopramide off and on. The patient does have same symptoms like what she had before. On admission, she had an abdominal CAT scan. The abdom inal CAT scan shows lot of fatty liver and also multiple abnormal findings, which is difficult to rebecca lly characterize. Apparently, she had same evaluation before. At the present time, Ms. Monique appea rs very comfortable. She denies abdominal pain. She is actually feeling better that she has no more nausea. She is tolerating liquid diet. She actually would like to eat a regular diet . Her b owel movements are very regular. There is no hematochezia. The patient denies any dysphagia or odyn ophagia. No reflux symptoms. No other relevant history. ALLERGIES: None. MEDICAL ILLNESSES: 1. Diabetes mellitus. 2. Hypertension. 3. Recurrence of nausea and vomiting presumed to be gastroenteritis. FAMILY HISTORY: Mother had gastric cancer. Father had no medical illness. SOCIAL HISTORY: The patient does not smoke or drink alcohol. She is single. MEDICATIONS: Reviewed, which include; 1. Magnesium oxide. 2. Lantus 30 units subcu twice a day. 3. Pravastatin. 4. Lisinopril. REVIEW OF SYSTEMS: Constitutional: No history of fever, no weight loss. Good energy level. HOSPITAL UNIT CLERK: No history of chronic headache, seizure disorder or TIA. Respiratory: No history of chronic cough, hemoptysis, dyspnea. Cardiovascular: No chest pain, no palpitation, no dyspnea, orthopnea or PND. Gastrointestinal: Nausea and vomiting with minimal abdominal pain. : Unremarkable. NEUROPSYCHIA TRY: Unremarkable. Endocrine/Hematological: Unremarkable. PHYSICAL EXAMINATION: GENERAL: Patient is a short-statured, she appears very comfortable. She is awake, alert, and commun icative. She is in no distress. VITAL SIGNS: Temperature 97.6, pulse 62 and fast was 107, blood pressure is 188/93. HEENT: Conjunctivae clear. NECK: Supple. No adenitis or thyromegaly noted. CARDIOVASCULAR SYSTEM: First and second heart sounds normal. LUNGS: Clear to auscultation. ABDOMEN: Soft. Abdomen is nondistended. Abdomen is nontender. There is no organomegaly or masses. Bowel sounds are normal. EXTREMITIES: Reveal no edema. LABORATORY DATA: CBC; WBC 7300, hemoglobin 15.6, hematocrit 44.9, MCV 86.5, platelet count 300,000, polymorphs 65, lymphocytes 24, monocytes 5. Serum chemistries; sodium is 133, potassium 3.4, chlorid e 94, bicarbonate 25, BUN is 42, creatinine is 1.45, glucose 102, calcium 10, bilirubin 0.5, AST 17, ALT 18, alkaline phosphatase 233, total protein is 8.9, albumin 3.9, lipase 13. IMAGING: An abdominal sonogram shows what appears to be a fatty liver and also there is some abnorma l findings noted, which is somewhat difficult really to explain. CLINICAL IMPRESSION: 1. Nausea, vomiting, mostly gastroparesis. Her symptoms resolved. She appears to be volume deplete d with BUN and creatinine are high. She is on IV fluids. 2. Abnormal CAT scan, needs further evaluation with repeat CAT scan with contrast, probably as an ou tpatient. 3. We will also obtain gastric emptying study as outpatient. 4. IV Reglan. 5. IV fluids. I did talk to Ms. Monique and I have advised her to come back as an outpatient, so we can have further workup.
[2017-11-19] MEDS: Lisinopril/Hydrochlorothiazide 20 mg/12.5 mg Tablet PO SCH (09:59)
--- NOTE | 2017-11-20 05:48 | DIS ---
DATE OF ADMISSION: 11/18/2017 DATE OF DISCHARGE: 11/19/2017 DISCHARGE DIAGNOSES: 1. Nausea, vomiting. 2. Probable diabetic gastroparesis. 3. Insulin-dependent diabetes mellitus, poorly controlled. 4. Urinary tract infection. 5. Uncontrolled hypertension. 6. Abnormal CT scan of her liver with transient hepatic attenuation difference. 7. Heterogenous hepatic steatohepatitis. HOSPITAL COURSE: This patient is a 47-year-old female who has a history of some recurrent episodes o f nausea and vomiting requiring hospitalizations. She also has a chronic insulin-dependent diabetes and apparently has had some recurrent urinary tract infections as well. The patient presented with 6 -7 episodes of bilious vomiting to the emergency department. She had normal CBC, although her chemis tries were notable for sodium of 133, potassium 3.4, chloride 89, BUN 44, creatinine 1.8. Her blood sugars were elevated at 448, alkaline phosphatase was 253, albumin 5.5, lipase was 13. She had an el evated hydroxybutyrate at 1.11. She had an original CT scan of the abdomen and pelvis in the ER reve aling multiple filling defects in the portal vein, questionable for nonoccluding chronic portal vein thrombosis or mixed opacified and unopacified blood. She also had transient hepatic attenuation diff erence, heterogeneous hepatic steatohepatitis, possible cystitis, low attenuation of the pancreas. S he was originally admitted, given aggressive IV hydration and antiemetic treatment. Given the recurr ent nature of her nausea and vomiting episodes, she was felt to likely be suffering from diabetic gas troparesis. Vocational Placement Specialist was consulted in order to assess that plus her liver findings. The g astroenterologist felt that the patient likely did have gastroparesis as well and recommended IV flui ds, also recommended that she have outpatient followup, repeat scanning of her liver performed as an outpatient as well as a gastric emptying study. He encouraged the patient to follow up with him as a n outpatient. She had a UA obtained given the findings on her CT scan that were concerning for possi ble cystitis. Her urine appeared to be positive for urinary tract infection. She was subsequently g iven a dose of Rocephin and continued to be hydrated. Overnight the patient's blood sugars improved significantly and came down to 144 and 116. She felt substantially better and was able to take p.o. without any difficulties. With that, she was felt to be stable for discharge to home. The patient did have a persistent elevated blood pressure throughout her admission. She had no evide nce of being symptomatic from this. She initially required a couple doses of IV hydralazine. She wa s felt to benefit from the addition of the calcium channel sushma and follow up with her primary car e provider to continue to address her hypertension. PHYSICAL EXAMINATION: VITAL SIGNS: On the day of discharge, temperature is 97.5, pulse 98, respirations 16, O2 sat 96% on room air, blood pressure remained elevated at 190/108. GENERAL: A small stature age appropriate female in no distress, awake and alert and oriented. HEART: Regular rate and rhythm without murmurs, gallops or rubs. LUNGS: Clear to auscultation bilaterally. ABDOMEN: Soft, nontender, nondistended with positive bowel sounds. EXTREMITIES: Warm and dry. DISPOSITION: The patient is discharged to home. ACTIVITY: Her activity level is as tolerated. DIET: She will remain on a diabetic diet. DISCHARGE MEDICATIONS: She will have new medications to include Norvasc 5 mg p.o. daily and Bactrim- DS 1 p.o. b.i.d. She will continue with her Lantus 30 units subcu b.i.d., magnesium oxide 400 mg b.i .d., Pravachol 20 mg p.o. daily, lisinopril/HCTZ 20/12.5 one p.o. daily. FOLLOWUP: She is to follow up with her primary care provider within the next few days and follow up with Gastroenterology, Dr. Lam, at the next available appointment as well. She was encouraged to continue to push fluids and to return to the emergency department should she ro ve any problems prior to the time of her follow up.
== END 2017-11-19 14:05 | disposition home or self-care (01) | DRG 74 ==
LOC: ERS 19:08 → 2SW 23:45 → OBSVTOIN 11-18 16:28 → T4-B 11-18 18:59
PROVIDERS: ADMIT Hospitalist; ATTEND Hospitalist
DX: E11.43 Type 2 diabetes mellitus with diabetic autonomic (poly)neuropathy (principal); E87.2 Acidosis; N39.0 Urinary tract infection, site not specified; K31.84 Gastroparesis; E11.65 Type 2 diabetes mellitus with hyperglycemia; I10 Essential (primary) hypertension; R93.2 Abnormal findings on diagnostic imaging of liver and biliary tract; K75.81 Nonalcoholic steatohepatitis (NASH); Z79.4 Long term (current) use of insulin; Z79.899 Other long term (current) drug therapy
CPT/HCPCS: 36415; 36416; 74177; 80053; 81003; 81015; 82010; 83690; 85025; 96361; 96374; 96375; A4216; C9113; J0696; J1815; J2550; J2765; J7050

== ENCOUNTER 2017-12-08 18:55 | Emergency (ER) | payer MEDICARE, SELFPAY ==
[2017-12-08] MEDS ORDERED: Ondansetron ODT 4 MG TAB ONE (19:31)
[2017-12-08 19:35] LABS: #Lymphocytes 1.1 thou/uL (1.20-3.40); #Monocytes 0.2 thou/uL (0.11-0.59); #Neutrophils 7.9 thou/uL (1.40-6.50); %Basophils 0.3 % (0.0-1.0); %Eosinophils 0.1 % (0.0-10.0); %Lymphocytes 11.4 % (21.0-51.0); %Monocytes 2.3 % (0.0-10.0); Hemoglobin 14.6 g/dL (12.0-16.0); Mean Corpuscular Hemoglobin 30.3 pg (27.0-31.0); Mean Corpuscular Volume 86.6 fL (78.0-98.0); Mean Platelet Volume 7.4 fL (7.4-10.4); Platelet Count 209 thou/uL (130-400); RBC Distribution Width 11.6 % (11.5-14.5); Red Blood Cell (RBC) Count 4.82 mill/uL (4.20-5.40); White Blood Cell (WBC) Count 9.2 thou/uL (4.8-10.8)
[2017-12-08 19:55] LABS: ALT (SGPT) 32 U/L (8-55); AST (SGOT) 20 U/L (5-34); Albumin 4.4 g/dL (3.5-5.0); Alkaline Phosphatase 185 U/L (40-150); Anion Gap 21 mmol/L (10-20); BUN (Urea Nitrogen) 23 mg/dL (7.0-18.7); Bilirubin, Total 0.8 mg/dL (0.2-1.2); Calc. Creatinine Clearance 0 mL/min (70-130); Calcium 10.7 mg/dL (7.8-10.44); Carbon Dioxide 25 mmol/L (22-29); Chloride 94 mmol/L (98-107); Estimated GFR-MDRD 57; Globulin 4.8 g/dL (2.4-3.5); Glucose 396 mg/dL (70-105); Potassium 3.5 mmol/L (3.5-5.1); Protein, Total 9.2 g/dL (6.0-8.3); Sodium 136 mmol/L (136-145)
[2017-12-08] MEDS ORDERED: Ondansetron HCl/PF 4 MG/2 ML Vial ONE ×2 (21:45→21:46)
[2017-12-08 22:01] LABS: Bilirubin Negative (Negative); Blood, Urine Moderate (Negative); Clarity CLEAR (Clear); Glucose, Urine (Dipstick) >=1000 mg/dL (Negative); Leukocyte Negative (Negative); Nitrite Negative (Negative); Protein, Urine (Dipstick) 300 mg/dL (Neg-Trace); Specific Gravity, Urine 1.027 (1.002-1.036)
[2017-12-08 22:04] LABS: Bacteria/HPF None Seen HPF (None Seen); Hyaline Casts/LPF 0-3 HYALINE CAST LPF (0-3 Hyaline); Pathc Cast-AUWi Flag 0.29 (0-2.49); Squamous Epithelial 0-3 HPF (0-3); WBC/HPF 0-3 HPF (0-3)
[2017-12-08] MEDS ORDERED: Insulin Regular 300 UNITS/3 ML VIAL ONE (22:33)
[2017-12-08 22:59] LABS: Base Excess-Venous 5.8 mmol/L (0 (+/- 2.5)); Bicarbonate (HCO3v) 32.5 mmol/L (1.0-85.0); CO2 Tension (PvCO2) 54.1 mmHg (41.0-51.0); Calcium, Ionized 1.07 mmol/L (1.12-1.32); Hemoglobin - Calc 15.1 g/dL (12.0-18.0); O2 Tension (PvO2) 63.4 mmHg (35.0-45.0); Potassium 3.3 mmol/L (3.4-4.7); T. Carbon Dioxide 34.2 mmol/L (1.0-85.0); pH (Venous) 7.388 (7.35-7.45)
[2017-12-08] MEDS ORDERED: Metoclopramide HCl 10 MG/2 ML VIAL ONE (23:14)
[2017-12-08 23:28] LABS: CKMB 1.1 ng/mL (0-6.6); Troponin I Less than 0.010 ng/mL (< 0.028)
[2017-12-09] MEDS ORDERED: cloNIDine 0.1 MG TAB ONE (00:51)
== END 2017-12-09 01:23 | disposition home or self-care (01) ==
LOC: ERS 18:55
DX: K52.9 Noninfective gastroenteritis and colitis, unspecified (principal); E11.9 Type 2 diabetes mellitus without complications; I10 Essential (primary) hypertension; F32.9 Major depressive disorder, single episode, unspecified; Z79.4 Long term (current) use of insulin; Z79.899 Other long term (current) drug therapy
CPT/HCPCS: 36415; 36416; 80053; 81003; 81015; 82330; 82553; 82803; 83690; 84484; 85025; 93005; J1815; J2405; J2765; Q0162

== ENCOUNTER 2017-12-09 16:57 | Inpatient (IN) | payer MEDICARE ==
[2017-12-09] MEDS ORDERED: Metoclopramide HCl 10 MG/2 ML VIAL ONE (17:52)
[2017-12-09 18:02] LABS: #Lymphocytes 1.3 thou/uL (1.20-3.40); #Monocytes 0.6 thou/uL (0.11-0.59); #Neutrophils 7.2 thou/uL (1.40-6.50); %Basophils 0.5 % (0.0-1.0); %Lymphocytes 13.8 % (21.0-51.0); %Monocytes 6.6 % (0.0-10.0); Hemoglobin 14.3 g/dL (12.0-16.0); Mean Corpuscular HGB CONC 35.1 g/dL (32.0-36.0); Mean Corpuscular Hemoglobin 30.7 pg (27.0-31.0); Mean Corpuscular Volume 87.5 fL (78.0-98.0); Mean Platelet Volume 7.4 fL (7.4-10.4); Platelet Count 207 thou/uL (130-400); RBC Distribution Width 11.8 % (11.5-14.5); Red Blood Cell (RBC) Count 4.65 mill/uL (4.20-5.40); White Blood Cell (WBC) Count 9.1 thou/uL (4.8-10.8)
[2017-12-09 18:27] LABS: ALT (SGPT) 27 U/L (8-55); AST (SGOT) 24 U/L (5-34); Albumin 4.1 g/dL (3.5-5.0); Alkaline Phosphatase 161 U/L (40-150); Anion Gap 16 mmol/L (10-20); BUN (Urea Nitrogen) 25 mg/dL (7.0-18.7); Bilirubin, Total 0.8 mg/dL (0.2-1.2); Calc. Creatinine Clearance 0 mL/min (70-130); Calcium 9.9 mg/dL (7.8-10.44); Carbon Dioxide 24 mmol/L (22-29); Chloride 97 mmol/L (98-107); Estimated GFR-MDRD 78; Globulin 4.9 g/dL (2.4-3.5); Glucose 247 mg/dL (70-105); Lipase 9 U/L (8-78); Potassium 3.5 mmol/L (3.5-5.1); Sodium 133 mmol/L (136-145)
[2017-12-09] MEDS ORDERED: Labetalol HCl 100 MG/20 ML VIAL ONE (18:28)
[2017-12-09 19:02] LABS: Bilirubin Negative (Negative); Blood, Urine Small (Negative); Clarity CLEAR (Clear); Glucose, Urine (Dipstick) 500 mg/dL (Negative); Leukocyte Negative (Negative); Nitrite Negative (Negative); Protein, Urine (Dipstick) 300 mg/dL (Neg-Trace); Specific Gravity, Urine 1.019 (1.002-1.036); Urobilinogen 0.2 mg/dL (0.2-1.0)
[2017-12-09 19:04] LABS: Bacteria/HPF None Seen HPF (None Seen); Hyaline Casts/LPF 0-3 HYALINE CAST LPF (0-3 Hyaline); Pathc Cast-AUWi Flag 0.29 (0-2.49); RBC/HPF 21-50 HPF (0-3); Squamous Epithelial 0-3 HPF (0-3); WBC/HPF 0-3 HPF (0-3)
[2017-12-09 19:17] LABS: Amphetamine Not Detected (NotDetected); Barbiturates Screen Not Detected (NotDetected); Benzodiazepine Screen Not Detected (NotDetected); Cocaine Metabolite Screen Not Detected (NotDetected); Medtox Control Line Valid? VALID (VALID); Medtox Reader # READER 1; Methadone Not Detected (NotDetected); Methamphetamine Not Detected (NotDetected); Opiate Screen Not Detected (NotDetected); Oxycodone Screen Not Detected (NotDetected); Phencyclidine (PCP) Not Detected (NotDetected); THC/Cannabinoid Screen Not Detected (NotDetected); Tricyclic Screen Not Detected (NotDetected)
[2017-12-09] MEDS ORDERED: hydrALAZINE 20 MG/ML VIAL ONE (20:06)
[2017-12-09] MEDS ORDERED: HumaLOG 300 UNITS/3 ML VIAL SC PRN (20:13)
[2017-12-09] MEDS ORDERED: Dextrose 5% in Water 1,000 ML IV PRN (20:13)
[2017-12-09] MEDS ORDERED: Dextrose 50% Abboject 50 ML SYRINGE SLOW IVP PRN (20:13)
[2017-12-09] MEDS ORDERED: Non-Formulary Item 1 EACH (Insulin Glargine,Hum.Rec.Anlog [Lantus Solostar] 20 UNIT) SQ SCH (21:00)
--- NOTE | 2017-12-09 22:10 | HP ---
DATE OF ADMISSION: 12/09/2017 CODE STATUS: FULL CODE. PRIMARY CARE PHYSICIAN: No PCP reported. CHIEF COMPLAINT: Nausea and vomiting. HISTORY OF PRESENT ILLNESS: This is a 47-year-old female patient with past medical history of hypert ension, hyperlipidemia, diabetes type 2. Patient came to the hospital after having a recurrent episo de of nausea and vomiting that started this morning, symptoms were reported severe, associated with a bdominal pain, that is epigastric, with no clear triggers, no alleviating factors. Patient rated the symptoms are 8/10. Patient has reported that she has been unable to hold anything down after nausea and vomiting started. She reported that she had previous episodes like this in the past that were r elated to diabetes, she also reported that her diabetes is occasionally hard to control. REVIEW OF SYSTEMS: Constitutional: Patient had no fever, no chills. Generalized weakness. Respira tory: No cough, no sputum production, no shortness of breath. Cardiovascular: No chest pain, palpi tations, or shortness of breath. Gastrointestinal: Patient has continuous nausea and vomiting, no d iarrhea. Epigastric pain was reported. REGULATORY TECHNICIAN: No dizziness, headache, or feeling lightheaded. No bu rning on urination. Extremity: No leg swelling. All other systems were reviewed and negative excep t for the findings mentioned above. PAST MEDICAL HISTORY: Diabetes, hypertension. PAST SURGICAL HISTORY: Hysterectomy, cataract surgery. PSYCHIATRIC HISTORY: Depression. SOCIAL HISTORY: No alcohol, no drug use. No smoking history. FAMILY HISTORY: Mother had cancer and father had diabetes. DRUG ALLERGIES: No known drug allergies reported. REPORTED MEDICATIONS: Lisinopril-hydrochlorothiazide 20-12.5 mg, pravastatin, Lantus 30 units b.i.d. PHYSICAL EXAMINATION: VITAL SIGNS: On presentation 137/101 with heart rate 107, respiratory rate was 18, temperature 98.9, pain 10/10, oxygen saturation 99 on room air. GENERAL APPEARANCE: The patient is alert, oriented, not in acute distress. HEENT: Eye, normal conjuctivae. Dry oral mucosa. Anicteric. NECK: No JVD. RESPIRATORY: Bilateral air entry. No rales, no wheezing. Symmetric expansion. CARDIOVASCULAR: Normal rate, regular rhythm. No murmurs, no gallop, no edema. ABDOMEN: Soft, normal bowel sounds. Mildly tender in the epigastric area. MUSCULOSKELETAL: Baseline range of motion and strength. No tenderness. SKIN: Warm and intact. No pallor, no rash, no redness. NEUROLOGIC: Baseline sensory. No evidence of any new focal weakness. Baseline speech. Cranial ner ves seem to be intact. PSYCHIATRIC: Good mood. No anxiety, oriented, optimal judgment. LABORATORY DATA: Reviewed. Patient had white count 9.1, hemoglobin 14.3, platelet count 207. Sodiu m 133, potassium 3.5, chloride 97, carbon dioxide 24, anion gap 16, BUN 25, creatinine 0.93, GFR 78, glucose 247, calcium 9.9. Total bilirubin at 0.8, AST 24, ALT 27, alkaline phosphatase 161. Serum t otal protein 9.0, albumin 4.1, globulin 4.9, albumin globulin ratio 0.8, lipase 9. Urine was done. Patient has proteinuria of 300 with glycosuria of 500, some ketones in urine and some rbc's and white count is normal. Toxicology was done and was normal. Beta hydroxybutyrate was 1.0. EKG was done a nd reviewed. Patient has sinus tachycardia at the rate of 114 with TX 142, QRS 58, QT corrected 454. ASSESSMENT AND PLAN: The patient will be placed in the hospital following medical problems: 1. Diabetic gastroparesis, there is a recurrent problem in the patient. The patient is on Reglan, a lso some Zofran, we will improve diabetic control, we will hydrate. 2. Uncontrolled diabetes with blood sugar of 247, we will place the patient on sliding scale, reconc ile home meds, likely the reason why patient continues to have gastroparesis. 3. Hyponatremia, sodium 133, this is mild, no need for any acute intervention at this point. We ashok l monitor, and treat accordingly. 4. Uncontrolled hypertension with blood pressure in the 160s. We will reconcile home meds, we will adjust treatment as needed. Likely uncontrolled due to nausea and vomiting. Patient has been unable to take her meds properly. 5. Deep venous thrombosis prophylaxis.
[2017-12-09 23:26] VITALS: BMI 24.0
[2017-12-09] MEDS: Metoclopramide HCl 10 MG/2 ML VIAL IVP SCH (23:35)
[2017-12-09] MEDS: Ondansetron HCl/PF 4 MG/2 ML Vial IVP PRN (23:41)
[2017-12-09] MEDS: Acetaminophen 325 MG TAB PO PRN (23:41)
[2017-12-09] MEDS: Magnesium Oxide 400 MG TAB PO SCH (23:41)
[2017-12-09] MEDS: Insulin Glargine 20 UNITS in Pre-Filled Syringe 1 EACH SC SCH (23:48)
[2017-12-10] MEDS ORDERED: Labetalol HCl 100 MG/20 ML VIAL SLOW IVP PRN (03:39)
[2017-12-10] MEDS: Sodium Chloride 0.9% 1,000 ML IV SCH ×2 (04:13→14:21)
[2017-12-10] MEDS: Metoclopramide HCl 10 MG/2 ML VIAL IVP SCH ×3 (05:24→21:01)
[2017-12-10 05:31] LABS: #Lymphocytes 1.5 thou/uL (1.20-3.40); #Monocytes 0.5 thou/uL (0.11-0.59); #Neutrophils 5.9 thou/uL (1.40-6.50); %Basophils 0.1 % (0.0-1.0); %Lymphocytes 19.2 % (21.0-51.0); %Monocytes 5.7 % (0.0-10.0); Hemoglobin 12.3 g/dL (12.0-16.0); Mean Corpuscular HGB CONC 34.8 g/dL (32.0-36.0); Mean Corpuscular Hemoglobin 30.4 pg (27.0-31.0); Mean Corpuscular Volume 87.6 fL (78.0-98.0); Mean Platelet Volume 7.3 fL (7.4-10.4); Platelet Count 188 thou/uL (130-400); RBC Distribution Width 11.7 % (11.5-14.5); Red Blood Cell (RBC) Count 4.04 mill/uL (4.20-5.40); White Blood Cell (WBC) Count 7.8 thou/uL (4.8-10.8)
[2017-12-10 05:47] LABS: Anion Gap 12 mmol/L (10-20); BUN (Urea Nitrogen) 28 mg/dL (7.0-18.7); Calc. Creatinine Clearance 55 mL/min (70-130); Calcium 8.9 mg/dL (7.8-10.44); Carbon Dioxide 29 mmol/L (22-29); Chloride 101 mmol/L (98-107); Estimated GFR-MDRD 71; Glucose 159 mg/dL (70-105); Sodium 139 mmol/L (136-145)
[2017-12-10 05:51] LABS: Potassium 2.9 mmol/L (3.5-5.1)
[2017-12-10] MEDS ORDERED: Potassium Chloride 20 MEQ TAB PO SCH (06:30)
[2017-12-10] MEDS: Ondansetron HCl/PF 4 MG/2 ML Vial IVP PRN (07:53)
[2017-12-10] MEDS: Enoxaparin Sodium 40 MG/0.4 ML SYRINGE SC SCH (07:54)
[2017-12-10] MEDS: Amlodipine 5 MG TAB PO SCH (07:54)
[2017-12-10] MEDS: Magnesium Oxide 400 MG TAB PO SCH ×2 (07:55→20:27)
[2017-12-10] MEDS: Lisinopril/Hydrochlorothiazide 20 mg/12.5 mg Tablet PO SCH (09:41)
[2017-12-10] MEDS: Potassium Chloride 20 MEQ TAB PO SCH ×3 (09:42→20:27)
[2017-12-10] MEDS: Insulin Glargine 20 UNITS in Pre-Filled Syringe 1 EACH SC SCH ×2 (10:42→20:27)
--- NOTE | 2017-12-10 12:11 | PDOC.PN ---
- Subjective Encounter Start Date: 12/10/17 Encounter Start Time: 10:05 Subjective: awake, is trying to eat her cereal -: no nausea this am or abd pain - Objective MAR Reviewed: Yes Vital Signs & Weight: Vital Signs (12 hours) Temp Pulse Resp BP BP Pulse Ox 12/10/17 09:41 104 H 181/96 H 12/10/17 08:00 98.8 F 104 H 20 95 12/10/17 07:54 104 H 181/96 H 12/10/17 07:27 98.8 F 104 H 16 181/96 H 95 12/10/17 03:05 99.1 F 111 H 16 139/78 99 12/10/17 01:00 98.9 F 110 H 18 145/76 H 95 Weight Weight 112 lb 8 oz I&O: 12/09/17 12/10/17 12/11/17 06:59 06:59 06:59 Intake Total 950 Output Total 150 Balance 800 Result Diagrams: 12/10/17 05:04 12/10/17 05:04 Additional Labs: Accuchecks 12/10/17 12/10/17 12/09/17 11:33 04:33 23:50 POC Glucose 141 H 154 H 176 H Phys Exam - Physical Examination HEENT: PERRLA, sclera anicteric Neck: no JVD, supple Respiratory: no wheezing, no rales Cardiovascular: RRR, no significant murmur Gastrointestinal: soft, non-tender, positive bowel sounds Musculoskeletal: no edema, pulses present Neurological: non-focal, moves all 4 limbs Psychiatric: normal affect, A&O x 3 Dx/Plan (1) Nausea and vomiting Code(s): R11.2 - NAUSEA WITH VOMITING, UNSPECIFIED Status: Acute Qualifiers: Vomiting type: unspecified Vomiting Intractability: intractable Qualified Code(s): R11.2 - Nausea with vomiting, unspecified (2) Diabetic gastroparesis Code(s): E11.43 - TYPE 2 DIABETES W DIABETIC AUTONOMIC (POLY)NEUROPATHY; K31.84 - GASTROPARESIS Status: Suspected (3) Hypokalemia Code(s): E87.6 - HYPOKALEMIA Status: Acute (4) Dyslipidemia Code(s): E78.5 - HYPERLIPIDEMIA, UNSPECIFIED Status: Chronic (5) DM type 2 (diabetes mellitus, type 2) Status: Chronic Qualifiers: Diabetes mellitus termite technician insulin use: with termite technician use Diabetes mellitus complication status: with unspecified complications Qualified Code(s) : E11.8 - Type 2 diabetes mellitus with unspecified complications; Z79.4 - intermediate teacher (current) use of insulin; Z79.4 - care home (current) use of insulin; Z79.4 - care home (current) use of insulin; Z79.4 - care home (current) use of insulin (6) HTN (hypertension) Code(s): I10 - ESSENTIAL (PRIMARY) HYPERTENSION Status: Chronic Qualifiers: Hypertension type: essential hypertension Qualified Code(s): I10 - Essential (primary) hypertension - Plan may dc home anytime if she is tolerating oral diet -: replace potassium -: start all home meds -: to ambulate in hallway -: will await GI opinion * . Review of Systems - Medications/Allergies Allergies/Adverse Reactions: Allergies Allergy/AdvReac Type Severity Reaction Status Date / Time No Known Allergies Allergy Verified 12/09/17 23:20 Medications: Current Medications Acetaminophen (Tylenol) 650 mg PO Q4H PRN PRN Reason: Headache/Fever or Pain Last Admin: 12/09/17 23:41 Dose: 650 mg Amlodipine Besylate (Norvasc) 5 mg PO DAILY [facility] Last Admin: 12/10/17 07:54 Dose: 5 mg Dextrose/Water (Dextrose 50%) 25 gm SLOW IVP PRN PRN PRN Reason: Hypoglycemia Enoxaparin Sodium (Lovenox) 40 mg SC 0900 [facility] Last Admin: 12/10/17 07:54 Dose: 40 mg Glucagon (Glucagon) 1 mg IM PRN PRN PRN Reason: Hypoglycemia Lisinopril/HCTZ (Prinizide 20-12.5) 1 tab PO DAILY [facility] Last Admin: 12/10/17 09:41 Dose: 1 tab Dextrose/Water (D5w) 1,000 mls @ 0 mls/hr IV .Q0M PRN; As Directed PRN Reason: Hypoglycemia Insulin Glargine 20 units/ (Miscellaneous Medication) 0.2 mls @ 0 mls/hr SC BID [facility] Last Admin: 12/10/17 10:42 Dose: 0.2 mls Sodium Chloride (Normal Saline 0.9%) 1,000 mls @ 100 mls/hr IV .Q10H [facility] Last Admin: 12/10/17 04:13 Dose: 1,000 mls Insulin Human Lispro (Humalog) 0 units SC .MILD SLIDING SCALE PRN PRN Reason: Mild Correctional Scale Labetalol HCl (Normodyne) 10 mg SLOW IVP Q4H PRN PRN Reason: BP Greater Than 180/ 100 Magnesium Oxide (Magnesium Oxide) 400 mg PO BID [facility] Last Admin: 12/10/17 07:55 Dose: 400 mg Metoclopramide HCl (Reglan) 10 mg IVP Q8HR [facility] Last Admin: 12/10/17 05:24 Dose: 10 mg Ondansetron HCl (Zofran) 4 mg IVP Q6H PRN PRN Reason: Nausea/Vomiting Last Admin: 12/10/17 07:53 Dose: 4 mg Potassium Chloride (K-Dur) 40 meq PO Q6H [facility] Stop: 12/11/17 08:01 Last Admin: 12/10/17 09:42 Dose: 40 meq Sodium Chloride (Flush - Normal Saline) 10 ml IVF Q12HR [facility] Last Admin: 12/10/17 07:55 Dose: 10 ml Sodium Chloride (Flush - Normal Saline) 10 ml IVF PRN PRN PRN Reason: Saline Flush
[2017-12-10] MEDS: Acetaminophen 325 MG TAB PO PRN (20:29)
[2017-12-11] MEDS: Sodium Chloride 0.9% 1,000 ML IV SCH ×2 (01:00→12:49)
--- NOTE | 2017-12-11 01:40 | CON ---
DATE OF CONSULTATION: 12/10/2017 REFERRING PHYSICIAN: Dr. Tali Cartwright, [facility]. REASON FOR CONSULTATION: Abdominal pain, nausea, and vomiting. HISTORY OF PRESENT ILLNESS: Faith Monique is a very pleasant 47-year-old -Swazi female wi th diabetes mellitus and hypertension. The patient is also noted to have hyperlipidemia and past his tory of gastroparesis. The patient has had nausea and vomiting and was hospitalized a month ago. Marco torres was given IV Reglan. She got better and went home. The patient has had repeat episode of nausea a nd vomiting over the years. The patient has had an EGD . The patient comes with abdominal pain which started yesterday. The pain was over the epigastric periumbilical area with nausea and vomiti ng. Apparently, she vomited several times. The vomiting is mostly bilious. There is no hematemesis or any coffee-ground vomiting. Today, she is actually feeling better. She is tolerating liquids. She is having nausea, but no vomiting. Her abdominal pain is still there, but not as bad as before. The pain is over the epigastric area and is localized. The patient has no relevant history. MEDICAL ILLNESSES: 1. Diabetes. 2. Hypertension. SURGERIES: Hysterectomy and cataract surgery. PSYCHIATRIC HISTORY: History of depression. SOCIAL HISTORY: The patient does not smoke or drink alcohol. FAMILY HISTORY: Mother with cancer and father with diabetes mellitus. ALLERGIES: None. REVIEW OF SYSTEMS: Unremarkable for abdominal pain, nausea, and vomiting. MEDICATION LIST: Reviewed. PHYSICAL EXAMINATION: GENERAL: The patient is a fragile looking, short statured, black, but appears very comfortable. She is awake, alert, and communicative. She is in no distress. VITAL SIGNS: Temperature 98 degree Fahrenheit, pulse is 107, blood pressure 163/98. HEENT: Conjunctivae clear. NECK: Supple. No adenitis or thyromegaly noted. CARDIOVASCULAR SYSTEM: First and second heart sounds normal. LUNGS: Clear to auscultation. ABDOMEN: Abdomen is soft. Abdomen is mildly tender in the epigastric area. There is no rebound or guarding. No organomegaly or masses. Bowel sounds normal. LABORATORY DATA: CBC: WBC 7800, hemoglobin 12.3, hematocrit 36.4, MCV 87.6, platelet count 188,000, polymorphs 75, lymphocytes 19. Serum chemistries: Sodium 133, potassium 3.5, chloride is 97, bicar bonate is 24, BUN is 25, creatinine 0.93, glucose 247 today 159, calcium 9.9, bilirubin 0.8, AST 24, ALT 27, alkaline phosphatase 161, albumin 4.1, globulin 4.9, lipase is 9. CLINICAL IMPRESSION: A 47-year-old -Swazi female with diabetes mellitus with abdominal lori n, nausea, and vomiting. The patient most likely has gastroparesis. However, other etiology like an ulcer disease or possibly biliary tract disease has to be ruled out. She is on IV Reglan. She is f eeling better. RECOMMENDATIONS: 1. Diet as tolerated. 2. Replace potassium, potassium level is 2.9. 3. Abdominal sonogram and EGD tomorrow. I will make further recommendations after the above tests.
[2017-12-11] MEDS: Potassium Chloride 20 MEQ TAB PO SCH ×2 (01:51→12:46)
[2017-12-11] MEDS: Metoclopramide HCl 10 MG/2 ML VIAL IVP SCH ×2 (05:34→14:35)
--- NOTE | 2017-12-11 07:57 | ULT ---
COMPLETE ABDOMEN ULTRASOUND: INDICATION: Abdominal pain. COMPARISON: Prior exam 11/17/17. FINDINGS: Visualized abdominal aorta is normal-appearing. No focal hepatic lesion is evident. The spleen measures 9 cm. The visible gallstones are present. No scintigraphic Pressley's sign is reported. Common bile duct me asures 4 mm. Visualized aspects of the pancreas are unremarkable. The right kidney measures 11.4 x 4.5 x 6 cm. The left kidney measures 11.9 x 4.7 x 4.3 cm. There is a 9 mm cyst seen involving the right mid kidney. IMPRESSION: 1. Right renal cyst. 2. No acute sonographic abnormality identified. POS: [facility]
[2017-12-11 08:56] LABS: #Basophils 0.1 thou/uL (0.0-0.2); #Lymphocytes 1.9 thou/uL (1.20-3.40); #Monocytes 0.6 thou/uL (0.11-0.59); #Neutrophils 3.3 thou/uL (1.40-6.50); %Basophils 1.2 % (0.0-1.0); %Eosinophils 0.6 % (0.0-10.0); %Lymphocytes 32.3 % (21.0-51.0); %Monocytes 9.8 % (0.0-10.0); %Neutrophils 56.1 % (42.0-75.0); Hemoglobin 12.4 g/dL (12.0-16.0); Mean Corpuscular HGB CONC 33.9 g/dL (32.0-36.0); Mean Corpuscular Hemoglobin 29.9 pg (27.0-31.0); Mean Corpuscular Volume 88.1 fL (78.0-98.0); Mean Platelet Volume 7.3 fL (7.4-10.4); Platelet Count 193 thou/uL (130-400); RBC Distribution Width 11.7 % (11.5-14.5); Red Blood Cell (RBC) Count 4.17 mill/uL (4.20-5.40); White Blood Cell (WBC) Count 5.8 thou/uL (4.8-10.8)
--- NOTE | 2017-12-11 09:05 | RAD ---
SINGLE VIEW CHEST: Date: 12/11/17 COMPARISON: 05/31/17. HISTORY: Shortness of breath and cough. FINDINGS: Single view of the chest shows an enlarged but stable cardiomediastinal silhouette. There is no evide nce of consolidation, mass, or pleural effusion. The bones are unremarkable. IMPRESSION: Cardiomegaly without evidence of acute cardiopulmonary disease. POS: [facility]
[2017-12-11 09:20] LABS: Anion Gap 11 mmol/L (10-20); BUN (Urea Nitrogen) 11 mg/dL (7.0-18.7); Calc. Creatinine Clearance 78 mL/min (70-130); Calcium 9.1 mg/dL (7.8-10.44); Carbon Dioxide 23 mmol/L (22-29); Chloride 103 mmol/L (98-107); Estimated GFR-MDRD Greater than 90; Glucose 145 mg/dL (70-105); Potassium 4.7 mmol/L (3.5-5.1); Sodium 132 mmol/L (136-145)
--- NOTE | 2017-12-11 11:56 | PDOC.PN ---
- Subjective Encounter Start Date: 12/11/17 Encounter Start Time: 09:40 Subjective: awake, is npo for egd today -: ate her dinner last night with no nausea or abd pain - Objective MAR Reviewed: Yes Vital Signs & Weight: Vital Signs (12 hours) Temp Pulse Resp BP BP Pulse Ox 12/11/17 08:29 100 175/122 H 12/11/17 08:00 98.3 F 100 12 179/115 H 97 12/11/17 05:37 99.0 F 100 16 166/86 H 96 Weight Weight 119 lb 6.4 oz I&O: 12/10/17 12/11/17 12/12/17 06:59 06:59 06:59 Intake Total 950 1700 Output Total 150 Balance 800 1700 Result Diagrams: 12/11/17 08:33 12/11/17 08:33 Additional Labs: Accuchecks 12/11/17 12/11/17 12/10/17 06:31 05:36 19:38 POC Glucose 178 H 53 L* 91 12/10/17 17:06 POC Glucose 112 H Phys Exam - Physical Examination HEENT: PERRLA, moist MMs Neck: no JVD, supple Respiratory: no wheezing, no rales Cardiovascular: RRR, no significant murmur Gastrointestinal: soft, non-tender, positive bowel sounds Musculoskeletal: no edema, pulses present Neurological: non-focal, moves all 4 limbs Psychiatric: normal affect, A&O x 3 Dx/Plan (1) Nausea and vomiting Code(s): R11.2 - NAUSEA WITH VOMITING, UNSPECIFIED Status: Acute Qualifiers: Vomiting type: unspecified Vomiting Intractability: intractable Qualified Code(s): R11.2 - Nausea with vomiting, unspecified (2) Diabetic gastroparesis Code(s): E11.43 - TYPE 2 DIABETES W DIABETIC AUTONOMIC (POLY)NEUROPATHY; K31.84 - GASTROPARESIS Status: Suspected (3) Hypokalemia Code(s): E87.6 - HYPOKALEMIA Status: Resolved (4) Dyslipidemia Code(s): E78.5 - HYPERLIPIDEMIA, UNSPECIFIED Status: Chronic (5) DM type 2 (diabetes mellitus, type 2) Status: Chronic Qualifiers: Diabetes mellitus long-term insulin use: with terminal make up operator use Diabetes mellitus complication status: with unspecified complications Qualified Code(s) : E11.8 - Type 2 diabetes mellitus with unspecified complications; Z79.4 - laborer marine terminal (current) use of insulin; Z79.4 - laborer marine terminal (current) use of insulin; Z79.4 - assisted (current) use of insulin; Z79.4 - laborer marine terminal (current) use of insulin (6) HTN (hypertension) Code(s): I10 - ESSENTIAL (PRIMARY) HYPERTENSION Status: Chronic Qualifiers: Hypertension type: essential hypertension Qualified Code(s): I10 - Essential (primary) hypertension - Plan hemostable -: for EGD today, may dc home if ok with GI -: to continue reglan before meals -: usg ruq showed no signs of cholecystitis -: cxr no infiltrate, had temp of 99. * . Review of Systems - Medications/Allergies Allergies/Adverse Reactions: Allergies Allergy/AdvReac Type Severity Reaction Status Date / Time No Known Allergies Allergy Verified 12/09/17 23:20 Medications: Current Medications Acetaminophen (Tylenol) 650 mg PO Q4H PRN PRN Reason: Headache/Fever or Pain Last Admin: 12/10/17 20:29 Dose: 650 mg Amlodipine Besylate (Norvasc) 5 mg PO DAILY [facility] Last Admin: 12/10/17 07:54 Dose: 5 mg Dextrose/Water (Dextrose 50%) 25 gm SLOW IVP PRN PRN PRN Reason: Hypoglycemia Last Admin: 12/11/17 05:40 Dose: 25 gm Enoxaparin Sodium (Lovenox) 40 mg SC 0900 [facility] Last Admin: 12/10/17 07:54 Dose: 40 mg Glucagon (Glucagon) 1 mg IM PRN PRN PRN Reason: Hypoglycemia Lisinopril/HCTZ (Prinizide 20-12.5) 1 tab PO DAILY [facility] Last Admin: 12/10/17 09:41 Dose: 1 tab Dextrose/Water (D5w) 1,000 mls @ 0 mls/hr IV .Q0M PRN; As Directed PRN Reason: Hypoglycemia Insulin Glargine 20 units/ (Miscellaneous Medication) 0.2 mls @ 0 mls/hr SC BID [facility] Last Admin: 12/10/17 20:27 Dose: Not Given Sodium Chloride (Normal Saline 0.9%) 1,000 mls @ 100 mls/hr IV .Q10H [facility] Last Admin: 12/11/17 01:00 Dose: 1,000 mls Insulin Human Lispro (Humalog) 0 units SC .MILD SLIDING SCALE PRN PRN Reason: Mild Correctional Scale Labetalol HCl (Normodyne) 10 mg SLOW IVP Q4H PRN PRN Reason: BP Greater Than 180/ 100 Last Admin: 12/11/17 08:29 Dose: 10 mg Magnesium Oxide (Magnesium Oxide) 400 mg PO BID [facility] Last Admin: 12/10/17 20:27 Dose: 400 mg Metoclopramide HCl (Reglan) 10 mg IVP Q8HR [facility] Last Admin: 12/11/17 05:34 Dose: 10 mg Ondansetron HCl (Zofran) 4 mg IVP Q6H PRN PRN Reason: Nausea/Vomiting Last Admin: 12/10/17 07:53 Dose: 4 mg Sodium Chloride (Flush - Normal Saline) 10 ml IVF Q12HR [facility] Last Admin: 12/10/17 20:28 Dose: Not Given Sodium Chloride (Flush - Normal Saline) 10 ml IVF PRN PRN PRN Reason: Saline Flush
[2017-12-11] MEDS ORDERED: Promethazine HCl 25 MG/ML VIAL IM PRN (11:58)
[2017-12-11] MEDS ORDERED: Promethazine HCl 25 MG/ML VIAL SLOW IVP PRN (11:58)
[2017-12-11] MEDS ORDERED: Ondansetron HCl/PF 4 MG/2 ML Vial IVP PRN (11:58)
[2017-12-11] MEDS ORDERED: Labetalol HCl 100 MG/20 ML VIAL SLOW IVP SCH (12:00)
[2017-12-11] MEDS: Amlodipine 5 MG TAB PO SCH (12:46)
[2017-12-11] MEDS: Enoxaparin Sodium 40 MG/0.4 ML SYRINGE SC SCH (12:47)
[2017-12-11] MEDS: Lisinopril/Hydrochlorothiazide 20 mg/12.5 mg Tablet PO SCH (12:47)
[2017-12-11] MEDS: Insulin Glargine 20 UNITS in Pre-Filled Syringe 1 EACH SC SCH (12:47)
[2017-12-11] MEDS: Magnesium Oxide 400 MG TAB PO SCH (12:48)
[2017-12-11 14:00] VITALS: BP 165/109; TEMP 99
--- NOTE | 2017-12-11 23:51 | DIS ---
DATE OF ADMISSION: 12/09/2017 DATE OF DISCHARGE: 12/11/2017 DISCHARGE DISPOSITION: To home. PRIMARY DISCHARGE DIAGNOSES: Intractable nausea and vomiting secondary to diabetic gastroparesis, re solved. Electrolyte abnormalities secondary to above, resolved. SECONDARY DISCHARGE DIAGNOSES: Diabetes mellitus, type 2, which is insulin-dependent, dyslipidemia, hypertension. PROCEDURES DONE DURING HOSPITALIZATION: Right upper quadrant abdominal ultrasound done showed cholel ithiasis with no evidence of cholecystitis. Common bile duct 4 mm. Right renal cyst. The patient h ad an upper endoscopy done by Dr. Lam. The official results are pending. Per staff, did not r eveal any acute pathology. H and H 12 and 36, platelet count 193. Discharge BUN and creatinine 11 a nd 0.7. Urine drug screen was negative. DISCHARGE MEDICATIONS: Norvasc 2.5 mg p.o. daily, Levemir 30 units subcu twice daily, lisinopril wit h hydrochlorothiazide 20/12.5 mg p.o. daily, magnesium oxide 400 mg p.o. twice daily, Reglan 10 mg p. o. twice daily p.r.n. before meals for nausea, Pravachol 20 mg p.o. at bedtime. ALLERGIES: No known drug allergies. DISCHARGE PLAN: Patient to follow up with primary care physician in 1 week. BRIEF COURSE DURING HOSPITALIZATION: Patient initially got admitted on the with complaints of i ntractable nausea, vomiting, and unable to keep anything down. She was also dehydrated. The patient was admitted to medical floor and has had gentle hydration and correction of electrolytes. She was kept initially n.p.o. and has been slowly weaned into liquid diet and solid food. The patient is cristine erating solid food prior to discharge. She has had consultation with Dr. Lam and has had upper endoscopy done. The official results are pending at present. She is, otherwise, hemodynamically st able, ambulating and eating well prior to discharge with complete resolution of nausea.
--- NOTE | 2017-12-12 04:09 | OP ---
DATE OF SURGERY: 12/11/2017 OPERATIVE PROCEDURE: Esophagogastroduodenoscopy with biopsy. PREOPERATIVE DIAGNOSES: A 47-year-old -[place] female with abdominal pain, nausea, and vomit ing. The patient has had similar episodes a month ago. The patient also had ____. The patient ____ . The patient underwent EGD. POSTOPERATIVE DIAGNOSES: 1. Normal esophagus and normal duodenum. 2. Antral gastritis. The stomach is completely free of any food indicating gastric emptying now. PROCEDURE IN DETAIL: The patient was placed on her left lateral position and was given sedation by A nesthesia Department. A [employer]ax video gastroscope under direct vision was passed down the oropharynx, past the GE junction into the stomach and subsequently into descending duodenum. The esophageal muc geetha appeared normal. The GE junction, no pathology seen. The gastric cardia and fundus, no patholog y seen. The gastric body, no pathology seen. The gastric antrum shows gastritis, multiple linear er ythematous streaks. The duodenal bulb, descending duodenum, no pathology seen. Biopsy obtained from the gastric antrum and gastric body. The stomach was decompressed and the scope removed. RECOMMENDATIONS: Continue Reglan 10 mg p.o. 3 times a day.
== END 2017-12-11 16:32 | disposition home or self-care (01) | DRG 74 ==
LOC: ERS 16:57 → T4-B 22:07
PROVIDERS: ADMIT Hospitalist; ATTEND Hospitalist
DX: E11.43 Type 2 diabetes mellitus with diabetic autonomic (poly)neuropathy (principal); E87.1 Hypo-osmolality and hyponatremia; K31.84 Gastroparesis; Z79.4 Long term (current) use of insulin; I10 Essential (primary) hypertension; E78.5 Hyperlipidemia, unspecified; E86.0 Dehydration; E11.65 Type 2 diabetes mellitus with hyperglycemia; T50.906A Underdosing of unspecified drugs, medicaments and biological substances, initial encounter; Z91.138 Patient's unintentional underdosing of medication regimen for other reason
CPT/HCPCS: 36415; 36416; 71045; 76700; 80048; 80053; 80306; 81003; 81015; 82010; 82330; 82553; 82803; 83690; 84484; 85025; 88305; 88312; 93005; 96361; 96374; 96375; A4216; J0360; J1650; J1815; J2405; J2765; Q0162

== ENCOUNTER 2018-02-05 16:42 | Inpatient (IN) | payer MEDICARE, SELFPAY ==
[2018-02-05 17:16] LABS: #Basophils 0.1 thou/uL (0.0-0.2); #Lymphocytes 1.9 thou/uL (1.20-3.40); #Monocytes 0.5 thou/uL (0.11-0.59); #Neutrophils 6.3 thou/uL (1.40-6.50); %Basophils 0.9 % (0.0-1.0); %Eosinophils 0.2 % (0.0-10.0); %Lymphocytes 21.6 % (21.0-51.0); %Monocytes 5.9 % (0.0-10.0); %Neutrophils 71.4 % (42.0-75.0); Hemoglobin 13.7 g/dL (12.0-16.0); Mean Corpuscular Hemoglobin 30.8 pg (27.0-31.0); Mean Corpuscular Volume 88.1 fL (78.0-98.0); Mean Platelet Volume 7.9 fL (7.4-10.4); Platelet Count 283 thou/uL (130-400); RBC Distribution Width 11.8 % (11.5-14.5); Red Blood Cell (RBC) Count 4.44 mill/uL (4.20-5.40); White Blood Cell (WBC) Count 8.8 thou/uL (4.8-10.8)
[2018-02-05 17:37] LABS: ALT (SGPT) 25 U/L (8-55); AST (SGOT) 24 U/L (5-34); Alkaline Phosphatase 224 U/L (40-150); Anion Gap 17 mmol/L (10-20); BUN (Urea Nitrogen) 20 mg/dL (7.0-18.7); Bilirubin, Total 0.6 mg/dL (0.2-1.2); Calc. Creatinine Clearance 0 mL/min (70-130); Calcium 10.3 mg/dL (7.8-10.44); Carbon Dioxide 23 mmol/L (22-29); Chloride 98 mmol/L (98-107); Estimated GFR-MDRD 58; Globulin 4.6 g/dL (2.4-3.5); Glucose 221 mg/dL (70-105); Lipase 18 U/L (8-78); Protein, Total 8.6 g/dL (6.0-8.3); Sodium 135 mmol/L (136-145)
[2018-02-05 17:41] LABS: Potassium 2.8 mmol/L (3.5-5.1)
[2018-02-05] MEDS ORDERED: Ondansetron HCl/PF 4 MG/2 ML Vial ONE (17:53)
[2018-02-05] MEDS ORDERED: Potassium Chloride 20 MEQ TAB ONE (18:40)
[2018-02-05] MEDS ORDERED: hydrALAZINE 20 MG/ML VIAL SLOW IVP SCH (19:15)
--- NOTE | 2018-02-05 19:49 | PDOC.FPRHP ---
- History of Present Illness Chief Complaint: nausea/vomiting/diarrhea History of Present Illness: Pt is a 48yo F with PMH of DM with gastroparesis and HTN presenting with a 6 day hx of nausea/vomiting/diarrhea. Pt reports she has had these symptoms since Friday but that they have worsened significantly since awaking this AM. Reports vomiting x10 today with no hematemesis. Pt reports taking little PO intake. No recent sick contacts, no changes in diet. Pt reports seeing Nav Wallace on Friday and receiving Zofran but that it has not helped much. She also complains of related SOB during episodes of vomiting. ED Course: IV zofran, 1L NS, Oral Potassium 40meq, hydralazine - Allergies/Adverse Reactions Allergies Allergy/AdvReac Type Severity Reaction Status Date / Time No Known Allergies Allergy Verified 02/05/18 23:35 - Home Medications Medication Instructions Recorded Confirmed Type Amlodipine [Norvasc] 2.5 mg PO DAILY 30 Days #30 tab 02/06/18 Rx Hydrochlorothiazide 12.5 mg PO QPM 30 Days #30 capsule 02/06/18 Rx Insulin Glargine,Hum.Rec.Anlog 30 unit SQ BID 5 Days #1 pen 02/06/18 Rx [Lantus Solostar] Lisinopril/Hydrochlorothiazide 12.5 mg PO BID-AC 02/06/18 02/06/18 History [Lisinopril-Hctz 10-12.5 mg Tab] Lisinopril/Hydrochlorothiazide 1 tab PO DAILY 30 Days #30 tablet 02/06/18 Rx [Lisinopril-Hctz 20-12.5 mg Tab] Magnesium Oxide 400 mg PO BID #60 tab 02/06/18 Rx Ondansetron [Zofran ODT] 4 mg PO Q4HR PRN 7 Days #42 tab 02/06/18 Rx Pravastatin Sodium [Pravachol] 20 mg PO HS 30 Days #30 tab 02/06/18 Rx Carvedilol [Coreg] 3.125 mg PO BID-WM #28 tab 02/07/18 Rx Metoclopramide HCl [Reglan] 10 mg PO ACHS #60 tab 02/07/18 Rx - History PMHx:DM with diabetic gastroparesis, HTN PSHx: hysterectomy FHx:DM Social: denies EtOH/drugs/tobacco - Review of Systems General: denies: fever/chills, fatigue ENT: denies: nasal congestion, rhinorrhea Respiratory: denies: cough, congestion, shortness of breath Cardiovascular: denies: chest pain, palpitation Gastrointestinal: reports: nausea, vomiting, diarrhea. denies: constipation Skin: denies: rashes, lesions Neurological: denies: numbness, syncope - Vital signs BP: [202/66] HR: [100] RR: [22] Tmax: [98] Pox: [99]% on [ra] Wt: [50kg] - Physical Exam Constitutional: NAD, awake, alert and oriented HEENT: normocephalic and atraumatic, EOMI, grossly normal vision, normal nasal mucosa, MMM Neck: trachea midline Heart: RRR, normal S1/S2 Lungs: CTAB, no respiratory distress Abdomen: soft, non-tender Musculoskeletal: normal structure Skin: no rash/lesions, good turgor Heme/Lymphatic: no purpura, no petechia FMR H&P: Results - Labs Result Diagrams: 02/05/18 17:08 02/07/18 06:52 Lab results: WBC 8.8 thou/uL (4.8-10.8) 02/05/18 17:08 Hgb 13.7 g/dL (12.0-16.0) 02/05/18 17:08 Hct 39.1 % (36.0-47.0) 02/05/18 17:08 MCV 88.1 fL (78.0-98.0) 02/05/18 17:08 Plt Count 283 thou/uL (130-400) 02/05/18 17:08 Neutrophils % 71.4 % (42.0-75.0) 02/05/18 17:08 Sodium 135 mmol/L (136-145) L 02/05/18 17:08 Potassium 2.8 mmol/L (3.5-5.1) L* 02/05/18 17:08 Chloride 98 mmol/L (98-107) 02/05/18 17:08 Carbon Dioxide 23 mmol/L (22-29) 02/05/18 17:08 BUN 20 mg/dL (7.0-18.7) H 02/05/18 17:08 Creatinine 1.20 mg/dL (0.6-1.1) H 02/05/18 17:08 Glucose 221 mg/dL (70-105) H 02/05/18 17:08 Calcium 10.3 mg/dL (7.8-10.44) 02/05/18 17:08 Total Bilirubin 0.6 mg/dL (0.2-1.2) 02/05/18 17:08 AST 24 U/L (5-34) 02/05/18 17:08 ALT 25 U/L (8-55) 02/05/18 17:08 Alkaline Phosphatase 224 U/L (40-150) H 02/05/18 17:08 Serum Total Protein 8.6 g/dL (6.0-8.3) H 02/05/18 17:08 Albumin 4.0 g/dL (3.5-5.0) 02/05/18 17:08 Lipase 18 U/L (8-78) 02/05/18 17:08 FMR H&P: A/P - Problem List (1) Hypertensive urgency Status: Acute Code(s): I16.0 - HYPERTENSIVE URGENCY (2) Nausea and vomiting Status: Acute Code(s): R11.2 - NAUSEA WITH VOMITING, UNSPECIFIED Qualifiers: Vomiting type: unspecified Vomiting Intractability: intractable Qualified Code(s): R11.2 - Nausea with vomiting, unspecified (3) DM type 2 (diabetes mellitus, type 2) Status: Chronic (4) Diabetic gastroparesis Status: Suspected Code(s): E11.43 - TYPE 2 DIABETES W DIABETIC AUTONOMIC (POLY )NEUROPATHY; K31.84 - GASTROPARESIS (5) Hypokalemia Status: Acute Code(s): E87.6 - HYPOKALEMIA - Plan 48 yoF with pmh of diabetic gastroparesis presenting for hx of N/V/D Hypertensive Urgency A- Pt SBP in 200s on presentation, was given hydralazine in ED. BPs normalized. P- resume home medications. -PRN hydralazine, labetalol. Intractable nausea and vomiting secondary to gastroparesis vs. gastroenteritis A- Poor PO intake for at least one day, s/p one liter in ED P- Zofran ELISABET -Reglan ELISABET -Phenergan prn. -LR until tolerating good PO intake Acute kidney injury -IVF -BMP in AM Hypokalemia A- s/p replacement in ED. P- additional 20 meq IV. -BMP in AM Diabetes mellitus -home meds -check A1C. FMR H&P: Upper Level - Pertinent history Faith Monique is a 48 year old female with a history of diabetes who presents to the ED with several day history of nausea, vomiting and poor PO intake that worsened today. She reports at least 10 episodes of non-bloody, non-bilious emesis today. She also reports having diarrea today. She was seen in the clinic on Friday and was give Zofran which did not help. She has had multiple hospitalization for intractable nausea and vomiting from diabetic gastroparesis. In the ED she received 1L NS, Zofran and potassium. - Pertinent findings Vitals: BP: 202/166 P: 99 RR: 20 T: 98.0 SpO2: 98% on RA General: patient appears very uncomfortable and restless. Heart: tachycardic; regular rhythm; no murmurs, rubs, gallops. Lungs: clear to auscultation bilaterally. Abomen: soft, non-tender, non-distended. K: 2.8 Glucose: 220 BUN: 10 Cr: 1.20 (baseline of 0.75 in 11/2017) beta-hydroxybutyrate: 0.67 - Plan Date/Time: 02/05/181948 I, Kamille Mejía, have evaluated this patient and agree with findings/plan as outlined by music intern resident. Pertinent changes/additions are listed here. Hypertensive Urgency - will resume patient's home medications. - PRN hydralazine, labetalol. Intractable nausea and vomiting secondary to gastroparesis vs. gastroenteritis - Zofran ELISABET, Reglan ELISABET, Phenergan prn. - LR @ 90. Acute kidney injury - IV fluids. -will repeat BMP in AM Hypokalemia - s/p replacement in ED. Will give another 20 meq IV. - repeat BMP in AM Diabetes mellitus - will resume home medications. - check A1C. Attending Addendum - Attending Addendum Date/Time: 02/06/18 9201 I personally evaluated the patient and discussed the management with Dr. Jamison and Dr. Mejía I agree with the History, Examination, Assessment and Plan documented above with any addition or exceptions noted below. 48 yo female with hx of longstanding DM admitted for intractable NV 2/2 DM gastroparesis. Will admit to tele due to HTN urgency. Monitor cardiac function. Trend trop to rule out ischemia. Check TSH. Treat N/V with scheduled mediations. No infectious etiology at this time. Will need GI outpatient. Check UDS and TSH. DM. Monitor glucose per accuchecks. Add SSI. Adjust home meds as needed. CHEIKH on CKD. Likely prerenal 2/2 dehydration. Continue IVFs. Trend labs. Ahmet
[2018-02-05] MEDS ORDERED: Non-Formulary Item 1 EACH (Insulin Glargine,Hum.Rec.Anlog [Lantus Solostar] 30 UNIT) SQ SCH (21:00)
[2018-02-05 21:13] VITALS: BMI 23.2
[2018-02-05] MEDS ORDERED: Promethazine HCl 25 MG/ML VIAL IM/IV PRN (21:48)
[2018-02-05] MEDS ORDERED: Lactated Ringer's 1,000 ML IV SCH (21:48)
[2018-02-05] MEDS ORDERED: Dextrose 5% in Water 1,000 ML IV PRN (21:48)
[2018-02-05] MEDS ORDERED: Potassium Chloride 20 MEQ in Premix Bag 1 BAG IVPB SCH (22:00)
[2018-02-05 22:53] LABS: Magnesium 1.1 mg/dL (1.6-2.6); Phosphorus 3.1 mg/dL (2.3-4.7)
[2018-02-05 22:59] LABS: Hemoglobin A1c 12.6 % (4.0-6.0)
[2018-02-05] MEDS ORDERED: Ondansetron HCl/PF 8 MG in Sodium Chloride 0.9% 50 ML IVPB SCH (23:00)
[2018-02-05] MEDS: Metoclopramide HCl 10 MG/2 ML VIAL IVP SCH (23:13)
[2018-02-05] MEDS: Pravastatin Sodium 20 MG TAB PO SCH (23:16)
[2018-02-05] MEDS: Insulin Glargine 30 UNITS in Pre-Filled Syringe SC SCH (23:17)
[2018-02-06] MEDS ORDERED: Lactated Ringer's 1,000 ML IV SCH (03:05)
[2018-02-06] MEDS: Lactated Ringer's 1,000 ML IV SCH ×2 (04:32→08:41)
--- NOTE | 2018-02-06 05:00 | PDOC.FM ---
- Subjective Subjective: NAEO. Patient states she feels alright this AM. States she did not sleep well at all and endorses a slight headache this AM. Denies any associated vision changes. Denies any chest pain, nausea or SOB as well. State she vomited twice since getting up to the floor and says it was just saliva. Had one episode of diarrhea last night in the ED and noted mucus in it but no hematochezia. Is requesting something to help her rest. - Objective MAR Reviewed: Yes Vital Signs & Weight: Vital Signs (12 hours) Temp Pulse Resp BP Pulse Ox 02/06/18 03:02 98.3 F 123 H 15 178/86 H 95 02/06/18 00:12 98 F 120 H 16 164/92 H 96 02/05/18 23:11 112 H 02/05/18 20:55 97.5 F L 112 H 22 H 135/90 98 Weight Weight 48.716 kg Result Diagrams: 02/05/18 17:08 02/06/18 04:49 <Rhea Georges - Last Filed: 02/06/18 09:13> - Objective Vital Signs & Weight: Vital Signs (12 hours) Temp Pulse Resp BP BP Pulse Ox 02/06/18 08:37 123 H 166/105 H 02/06/18 08:28 99 F 18 166/105 H 96 02/06/18 03:02 98.3 F 123 H 15 178/86 H 95 02/06/18 00:12 98 F 120 H 16 164/92 H 96 Weight Weight 47.355 kg Result Diagrams: 02/05/18 17:08 02/06/18 04:49 <Rito Villagomez - Last Filed: 02/06/18 11:38> Phys Exam - Physical Examination Constitutional: NAD HEENT: moist MMs, sclera anicteric Neck: supple, full ROM Respiratory: no wheezing, no rales, no rhonchi, clear to auscultation bilateral Cardiovascular: RRR, no significant murmur, no rub Gastrointestinal: soft, no distention, positive bowel sounds slightly tender to palpation across upper abdomen Musculoskeletal: no edema, pulses present Neurological: non-focal, normal sensation, moves all 4 limbs Psychiatric: normal affect, A&O x 3 Skin: no rash, normal turgor <Rhea Georges - Last Filed: 02/06/18 09:13> Dx/Plan (1) Hypertensive urgency Code(s): I16.0 - HYPERTENSIVE URGENCY Status: Acute (2) Nausea and vomiting Code(s): R11.2 - NAUSEA WITH VOMITING, UNSPECIFIED Status: Acute Qualifiers: Vomiting type: unspecified Vomiting Intractability: intractable Qualified Code(s): R11.2 - Nausea with vomiting, unspecified (3) Hypovolemia associated with vomiting Code(s): E86.1 - HYPOVOLEMIA Status: Acute (4) Gastroenteritis Code(s): K52.9 - NONINFECTIVE GASTROENTERITIS AND COLITIS, UNSPECIFIED Status : Acute (5) HTN (hypertension) Code(s): I10 - ESSENTIAL (PRIMARY) HYPERTENSION Status: Chronic Qualifiers: Hypertension type: essential hypertension Qualified Code(s): I10 - Essential (primary) hypertension (6) DM type 2 (diabetes mellitus, type 2) Status: Chronic (7) Dyslipidemia Code(s): E78.5 - HYPERLIPIDEMIA, UNSPECIFIED Status: Chronic (8) Diabetic gastroparesis Code(s): E11.43 - TYPE 2 DIABETES W DIABETIC AUTONOMIC (POLY)NEUROPATHY; K31.84 - GASTROPARESIS Status: Suspected (9) Hypokalemia Code(s): E87.6 - HYPOKALEMIA Status: Acute (10) Acute renal injury due to hypovolemia Code(s): N17.9 - ACUTE KIDNEY FAILURE, UNSPECIFIED; E86.1 - HYPOVOLEMIA Status : Acute - Plan Plan: Pt is a 48yo F with PMH of DM with gastroparesis and HTN presenting with a 6 day hx of nausea/vomiting/diarrhea who was found to be hypovolemic and hypokalemic with CHEIKH and in hypertensive urgency. 1. Hypertensive Urgency - Patient presented w/ SBP in 200s. Is s/p IV hydralazine in the ED on presentation. BPs still got as high as 176 systolic overnight. - Will continue home medications and consider adding an additional agent if BPs still high. - Will continue PRN hydralazine. 2. Intractable nausea and vomiting secondary to gastroparesis vs. gastroenteritis - Will give another LR !L bolus @ 100mL/hr until patient is able to adequately hydrate PO. - Will continue w/ ELISABET Zofran & reglan for N/V and possible gastroparesis. - Will also continue Phenergan prn. 3. Hypovolemia: - Will continue with IVF hydration until patient is tolerating PO intake. - Will continue to monitor hydration status w/ QD BMPs. 4. Acute kidney injury - Most likely prerenal 2/2 hypovolemia from vomiting and diarrhea. Resolved as Cr was down to 1.07 this AM. - Will continue w/ IVFs until tolerating PO as BUN still slightly elevated at 22. - Will continue to monitor with AM BMPs. 5. Hypokalemia - Most likely 2/2 vomiting & patient's hypovolemic state. - K of 2.6 on admission but up to 3.4 this AM s/p replacement in ED & on floor. - Will continue w/ LR for K replacement for now and continue to monitor w/ AM BMPs. 6. hypomagnesemia: - Resolved. - Mg up to 1.4 this AM. Likely 2/2 hypokalemia. Will give another 2g IV this AM since patient is still vomiting some and K still just below normal. - Will continue to monitor w/ AM checks. 6. Diabetes mellitus II - Aware, will continue home meds. - However, A1c was 12.6 on admission. - Will consider adjusting current home regimen for better glycemic control if BG levels do not improve once we implement home meds in hospital. 7. Dyslipidemia: - Aware, will continue home meds. 8. HTN: - Aware, will continue home meds and have labetalol & hydralazine IV available PRN for SBP >180. 9. Insomnia: - Ordered IV benadryl x1 to help patient sleep. S - Should also help with headache since patient is getting ELISABET reglan as well. <Rhea Georges - Last Filed: 02/06/18 09:13> Attending Addendum - Attending Addendum Date/Time: 02/06/18 8727 I personally evaluated the patient and discussed the management with Dr. Georges. I agree with the History, Examination, Assessment and Plan documented above with any addition or exceptions noted below. Patient admitted for intractable n/v 2/2 either gastroenteritis or possible diabetic gastroparesis as well as critical hypokalemia. Her electrolytes are improved and she is feeling somewhat better. Tolerated small breakfast but did have some emesis. Continue anti-emetics and advance diet as tolerated. Continue fluid hydration and K replacement. She has persistent sinus tachycardia on tele to the 120s, checking drug screen and search for causes. Will see how she does today and consider discharge this evening or tomorrow likely. <Rito Villagomez - Last Filed: 02/06/18 11:38>
[2018-02-06] MEDS: Ondansetron HCl/PF 8 MG in Sodium Chloride 0.9% 50 ML IVPB SCH ×2 (05:33→15:23)
[2018-02-06] MEDS: Metoclopramide HCl 10 MG/2 ML VIAL IVP SCH ×3 (05:33→22:26)
[2018-02-06 06:03] LABS: Acetaminophen Less than 6.0 mcg/mL (10.0-30.0); Alcohol Less than 10 mg/dL (Less than 10); Anion Gap 18 mmol/L (10-20); BUN (Urea Nitrogen) 22 mg/dL (7.0-18.7); Calc. Creatinine Clearance 48 mL/min (70-130); Calcium 9.8 mg/dL (7.8-10.44); Carbon Dioxide 20 mmol/L (22-29); Chloride 102 mmol/L (98-107); Estimated GFR-MDRD 66; Glucose 319 mg/dL (70-105); Potassium 3.4 mmol/L (3.5-5.1); Salicylate Less than 8.0 mg/dL (15.0-30.0); Sodium 137 mmol/L (136-145)
[2018-02-06] MEDS ORDERED: diphenhydrAMINE 50 MG/ML VIAL IVP SCH (07:15)
[2018-02-06] MEDS: Lisinopril/Hydrochlorothiazide 20 mg/12.5 mg Tablet PO SCH (08:37)
[2018-02-06] MEDS: Enoxaparin Sodium 40 MG/0.4 ML SYRINGE SC SCH (08:38)
[2018-02-06] MEDS: Pantoprazole 40 MG VIAL IVP SCH (08:39)
[2018-02-06] MEDS ORDERED: hydrALAZINE 20 MG/ML VIAL SLOW IVP PRN ×2 (09:15→16:15)
[2018-02-06] MEDS ORDERED: Magnesium Sulfate 2 GM, Admixture Fee 1 EACH in Sodium Chloride 0.9% 100 ML IVPB SCH (09:15)
[2018-02-06] MEDS ORDERED: Magnesium 2 GM/50 ML 2 GM in Premix Bag 1 BAG IVPB SCH (09:15)
[2018-02-06] MEDS: Insulin Regular 300 UNITS/3 ML VIAL SC PRN (12:27)
[2018-02-06] MEDS: Insulin Glargine 30 UNITS in Pre-Filled Syringe SC SCH ×2 (13:23→22:25)
[2018-02-06 15:59] LABS: Bilirubin Negative (Negative); Blood, Urine Moderate (Negative); Clarity TURBID (Clear); Glucose, Urine (Dipstick) >=1000 mg/dL (Negative); Leukocyte Large (Negative); Nitrite Negative (Negative); Protein, Urine (Dipstick) 300 mg/dL (Neg-Trace); Specific Gravity, Urine 1.025 (1.002-1.036); Urobilinogen 0.2 mg/dL (0.2-1.0)
[2018-02-06 16:02] LABS: Hyaline Casts/LPF 4-6 HYALINE CAST LPF (0-3 Hyaline); Pathc Cast-AUWi Flag 1.21 (0-2.49)
[2018-02-06 16:06] LABS: Yeast-AUWi Flag 35.5 (0-25.0)
[2018-02-06 16:13] LABS: Amphetamine Not Detected (NotDetected); Barbiturates Screen Not Detected (NotDetected); Benzodiazepine Screen Not Detected (NotDetected); Cocaine Metabolite Screen Not Detected (NotDetected); Medtox Control Line Valid? VALID (VALID); Medtox Reader # READER 4; Methadone Not Detected (NotDetected); Methamphetamine Not Detected (NotDetected); Opiate Screen Not Detected (NotDetected); Oxycodone Screen Not Detected (NotDetected); Phencyclidine (PCP) Not Detected (NotDetected); THC/Cannabinoid Screen Not Detected (NotDetected); Tricyclic Screen Not Detected (NotDetected)
[2018-02-06] MEDS ORDERED: Labetalol HCl 100 MG/20 ML VIAL SLOW IVP PRN (16:14)
[2018-02-06 16:17] LABS: Bacteria/HPF 2+ HPF (None Seen); Trichomonas/HPF 1+ HPF (None Seen); Yeast-All Forms None Seen HPF (None Seen)
[2018-02-06] MEDS ORDERED: Ondansetron ODT 8 MG TAB SL PRN (16:43)
[2018-02-06] MEDS ORDERED: Promethazine HCl 25 MG/ML VIAL IM SCH (17:00)
[2018-02-06] MEDS ORDERED: Amlodipine 5 MG TAB PO SCH (17:00)
[2018-02-06] MEDS ORDERED: diphenhydrAMINE 50 MG/ML VIAL IVP PRN (18:32)
[2018-02-06] MEDS ORDERED: Potassium Chloride 40 MEQ in Sodium Chloride 0.9% 500 ML IVPB SCH (18:45)
[2018-02-06] MEDS: cefTRIAXone\\ROCEPHIN 1 GM in Sodium Chloride 0.9% 100 ML IVPB SCH (22:24)
[2018-02-06] MEDS: Dextrose 50% Abboject 50 ML SYRINGE SLOW IVP PRN (22:24)
[2018-02-06] MEDS: Pravastatin Sodium 20 MG TAB PO SCH (22:25)
[2018-02-07] MEDS: Lactated Ringer's 1,000 ML IV SCH (02:29)
--- NOTE | 2018-02-07 05:33 | PDOC.FM ---
- Subjective Subjective: Had an episode of hypoglycemia overnight. Said she vomited once. Denies nausea this morning, says she is feeling well. Asking when she can go home. - Objective Vital Signs & Weight: Vital Signs (12 hours) Temp Pulse Resp BP BP Pulse Ox 02/07/18 03:00 98.6 F 121 H 20 197/111 H 96 02/06/18 19:00 98.8 F 101 H 16 101/59 L 94 L 02/06/18 18:03 115 H 122/74 Weight Weight 47.355 kg I&O: 02/05/18 02/06/18 02/07/18 06:59 06:59 06:59 Intake Total 180 Balance 180 Result Diagrams: 02/05/18 17:08 02/06/18 04:49 <Gabriella Lemos - Last Filed: 02/07/18 07:36> - Objective Vital Signs & Weight: Vital Signs (12 hours) Temp Pulse Resp BP Pulse Ox 02/07/18 11:43 99 F 122 H 16 129/80 97 02/07/18 08:29 121 H 02/07/18 08:00 99.2 F 118 H 18 174/94 H 96 02/07/18 03:00 98.6 F 121 H 20 197/111 H 96 Weight Weight 47.4 kg I&O: 02/06/18 02/07/18 02/08/18 06:59 06:59 06:59 Intake Total 180 Balance 180 Result Diagrams: 02/05/18 17:08 02/07/18 06:52 <Rito Villagomez - Last Filed: 02/07/18 11:52> Phys Exam - Physical Examination Constitutional: NAD HEENT: PERRLA, moist MMs Respiratory: no wheezing, no rales, no rhonchi, clear to auscultation bilateral Cardiovascular: no significant murmur tachycardic Gastrointestinal: soft, non-tender, no distention Musculoskeletal: no edema, pulses present Psychiatric: normal affect Skin: normal turgor, cap refill <2 seconds <Gabriella Lemos - Last Filed: 02/07/18 07:36> Dx/Plan (1) Hypertensive urgency Code(s): I16.0 - HYPERTENSIVE URGENCY Status: Acute (2) Trichomonal infection Status: Acute (3) Acute renal injury due to hypovolemia Code(s): N17.9 - ACUTE KIDNEY FAILURE, UNSPECIFIED; E86.1 - HYPOVOLEMIA Status : Resolved (4) Hypovolemia associated with vomiting Code(s): E86.1 - HYPOVOLEMIA Status: Acute (5) Gastroenteritis Code(s): K52.9 - NONINFECTIVE GASTROENTERITIS AND COLITIS, UNSPECIFIED Status : Acute (6) Hypokalemia Code(s): E87.6 - HYPOKALEMIA Status: Acute (7) Nausea and vomiting Code(s): R11.2 - NAUSEA WITH VOMITING, UNSPECIFIED Status: Acute Qualifiers: Vomiting type: unspecified Vomiting Intractability: intractable Qualified Code(s): R11.2 - Nausea with vomiting, unspecified (8) DM type 2 (diabetes mellitus, type 2) Status: Chronic (9) Dyslipidemia Code(s): E78.5 - HYPERLIPIDEMIA, UNSPECIFIED Status: Chronic (10) HTN (hypertension) Code(s): I10 - ESSENTIAL (PRIMARY) HYPERTENSION Status: Chronic Qualifiers: Hypertension type: essential hypertension Qualified Code(s): I10 - Essential (primary) hypertension (11) Diabetic gastroparesis Code(s): E11.43 - TYPE 2 DIABETES W DIABETIC AUTONOMIC (POLY)NEUROPATHY; K31.84 - GASTROPARESIS Status: Suspected - Plan Plan: Pt is a 48yo F with PMH of DM with gastroparesis and HTN presenting with a 6 day hx of nausea/vomiting/diarrhea who was found to be hypovolemic and hypokalemic with CHEIKH and in hypertensive urgency. Hypertensive Urgency - Presented with SBP in 200s. Hydralazine in the ED. BPs up to 197/111 overnight - Will continue home medications and consider adding an additional agent if BPs still high. - PRN hydralazine. Intractable nausea and vomiting secondary to gastroparesis vs. gastroenteritis - Will give another LR @ 50 mL/hr until patient is able to adequately hydrate PO. - Will continue w/ ELISABET Zofran & reglan for N/V and possible gastroparesis. - Phenergan prn. Trichomonal infection -Will give flagyl Hypovolemia - Will continue with IVF hydration until patient is tolerating PO intake. - Monitor hydration status w/ QD BMPs. Acute kidney injury, resolved - Most likely prerenal 2/2 hypovolemia from vomiting and diarrhea. Resolved as Cr improved to 1.07 - Will continue w/ IVFs until tolerating PO as BUN still slightly elevated. - Monitor with AM BMPs. Hypokalemia - Most likely 2/2 vomiting & patient's hypovolemic state. - K of 2.6 on admission, repleted with IV K - Continue to monitor Hypomagnesemia, resolved - Mg up to 1.4 this AM. Likely 2/2 hypokalemia. Received 2g more IV. - Will continue to monitor w/ AM checks. Diabetes mellitus II - Continue home meds. - A1c was 12.6 on admission. - Will consider adjusting current home regimen for better glycemic control if BG levels do not improve once we implement home meds in hospital. Dyslipidemia - Continue home meds. HTN - Aware, will continue home meds and have labetalol & hydralazine IV available PRN for SBP >180. Insomnia - Received 1xdose benadryl last night <Gabriella Lemos - Last Filed: 02/07/18 07:36> Attending Addendum - Attending Addendum Date/Time: 02/07/18 1150 I personally evaluated the patient and discussed the management with Dr. Lemos. I agree with the History, Examination, Assessment and Plan documented above with any addition or exceptions noted below. Patient here with intractable nausea and vomiting that she reports is improved. She tolerated oatmeal well this morning. She will plan for a more solid lunch. If she tolerates PO well today, likely discharge. We will need to make sure her blood sugars are controlled as nursing has been inappropriately holding her insulin. Adding Coreg for improved tachycardia that is noted to be chronic, and improved BP control. If she feels well this afternoon, can discharge home today. <Rito Villagomez - Last Filed: 02/07/18 11:52>
[2018-02-07] MEDS: Metoclopramide HCl 10 MG/2 ML VIAL IVP SCH (06:19)
[2018-02-07 07:37] LABS: Anion Gap 13 mmol/L (10-20); BUN (Urea Nitrogen) 21 mg/dL (7.0-18.7); Calc. Creatinine Clearance 51 mL/min (70-130); Calcium 9.2 mg/dL (7.8-10.44); Carbon Dioxide 24 mmol/L (22-29); Chloride 99 mmol/L (98-107); Estimated GFR-MDRD 72; Glucose 294 mg/dL (70-105); Magnesium 1.8 mg/dL (1.6-2.6); Potassium 3.8 mmol/L (3.5-5.1); Sodium 132 mmol/L (136-145)
[2018-02-07] MEDS: Insulin Glargine 30 UNITS in Pre-Filled Syringe SC SCH ×2 (08:27→09:21)
[2018-02-07] MEDS: Pantoprazole 40 MG VIAL IVP SCH (08:29)
[2018-02-07] MEDS: Lisinopril/Hydrochlorothiazide 20 mg/12.5 mg Tablet PO SCH (08:29)
[2018-02-07] MEDS: Enoxaparin Sodium 40 MG/0.4 ML SYRINGE SC SCH (08:29)
[2018-02-07] MEDS: Insulin Regular 300 UNITS/3 ML VIAL SC PRN ×2 (08:30→11:55)
[2018-02-07] MEDS ORDERED: Ketorolac Tromethamine 30 MG/ML VIAL IVP SCH (10:15)
[2018-02-07] MEDS ORDERED: metroNIDAZOLE 500 MG TAB PO SCH (10:45)
[2018-02-07] MEDS: Metoclopramide 10 MG/10 ML UDCUP PO SCH ×2 (10:55→16:25)
[2018-02-07] MEDS ORDERED: Carvedilol 3.125 MG TAB PO SCH ×2 (14:30→17:00)
[2018-02-07 16:03] VITALS: BP 121/75; TEMP 97.9
[2018-02-07] MEDS: Dextrose 50% Abboject 50 ML SYRINGE SLOW IVP PRN (16:24)
[2018-02-07] MEDS: cefTRIAXone\\ROCEPHIN 1 GM in Sodium Chloride 0.9% 100 ML IVPB SCH (18:13)
--- NOTE | 2018-02-07 19:45 | DIS-2 ---
DATE OF ADMISSION: 02/05/2018 DATE OF DISCHARGE: 02/07/2018 RESIDENT: Gabriella Lemos MD ADMITTING ATTENDING: Dr. Lorena Gutierrez. DISCHARGE ATTENDING: Dr. Rito Villagomez. CONSULTS: None. PROCEDURES: None. PRIMARY DIAGNOSES: 1. Hypertensive urgency. 2. Diabetic gastroparesis. SECONDARY DIAGNOSES: 1. Acute kidney injury, resolved. 2. Type 2 diabetes mellitus. 3. Trichomonas infection. 4. Hypovolemia. 5. Hypokalemia. 6. Hypomagnesemia. 7. Dyslipidemia. 8. Hypertension. 9. Insomnia. DISCHARGE MEDICATIONS: 1. Amlodipine 2.5 mg p.o. daily. 2. Carvedilol 3.125 mg p.o. b.i.d. with meals. 3. Hydrochlorothiazide 12.5 mg p.o. q.p.m. 4. Insulin glargine 30 units subcu b.i.d. 5. Lisinopril/hydrochlorothiazide 20 mg/12.5 mg 1 tab p.o. daily. 6. Magnesium oxide 400 mg p.o. b.i.d. 7. Metoclopramide 10 mg p.o. a.c. and at bedtime. 8. Ondansetron 4 mg p.o. q.4 hours p.r.n. 9. Pravastatin 20 mg p.o. at bedtime. DISCONTINUED MEDICATIONS: Potassium chloride. HISTORY OF PRESENT ILLNESS AND HOSPITAL COURSE: A 48-year-old female with past medical history of diabetes with gastroparesis and hypertension presenting with a 6-day history of nausea, vomiting, and diarrhea. The patient reports she has had these symptoms since Friday, but that they worsened significantly since awakening this a.m. She reported vomiting x10 times today with no hematemesis. Patient reports taking a little p.o. intake. No recent sick contacts, no change in diet. Patient reports seeing Nav Wallace on Friday and receiving Zofran, but that has not helped much. She also complains of related shortness of breath during episodes of vomiting. In the ED, she received IV Zofran, 1 liter normal saline, oral potassium 40 mEq, and hydralazine. Her systolic blood pressure was 200 on presentation, but she was given hydralazine in the ED and her blood pressures normalized. Coreg 3.125 b.i.d. was added to help normalize her blood pressures. On discharge, her blood pressures were in the 130s and 140 systolic. For her intractable nausea and vomiting secondary to gastroparesis, she was given lactated ringer until she was able to tolerate p.o. She was given scheduled Zofran and Reglan for her gastroparesis and also had Phenergan p.r.n. Before discharge, she was able to eat. Her nausea and vomiting had resolved. She was found to have a Trichomonas infection. She was given 2 grams of oral Flagyl. For hypovolemia, she was on IVF hydration and her hydration status was monitored. For her acute kidney injury, it was likely prerenal secondary to hypovolemia from vomiting and diarrhea. It resolved. Her creatinine improved to 1.07. For hypokalemia, her potassium was 2.6 on admission, was replaced with IV and oral potassium. On admission, her magnesium was also found to be 1.1. It was repeated and on discharge was 1.8. For her diabetes mellitus, her A1c was 12.6 on admission. Her blood sugars were difficult to control in the hospital. She had 2 episodes of hypoglycemia that resolved with D50. She was symptomatic, was feeling weak and tired. Her blood sugar at discharge were 158. She was discharged on insulin glargine 30 units SQ b.i.d. in stable condition. DISPOSITION: Stable. DISCHARGE INSTRUCTIONS: 1. Location: Home. 2. Diet: Consistent carbohydrates and heart healthy. 3. Activity as tolerated. 4. Follow up with PCP, Dr. Wallace, in the next 7 days. HAYLIE
[2018-02-07] MEDS ORDERED: Insulin Glargine 15 UNITS in Pre-Filled Syringe 1 EACH SC SCH (21:00)
== END 2018-02-07 18:34 | disposition home or self-care (01) | DRG 305 ==
LOC: ERS 16:42 → OBSVTOIN 18:00 → 2SW 18:00 → 2NO 23:59
PROVIDERS: ADMIT Student in an Organized Health Care Education/Training Program; ATTEND Student in an Organized Health Care Education/Training Program
DX: I16.0 Hypertensive urgency (principal); N17.9 Acute kidney failure, unspecified; K31.84 Gastroparesis; E11.43 Type 2 diabetes mellitus with diabetic autonomic (poly)neuropathy; E87.6 Hypokalemia; E86.1 Hypovolemia; K52.9 Noninfective gastroenteritis and colitis, unspecified; I10 Essential (primary) hypertension; E78.5 Hyperlipidemia, unspecified; E83.42 Hypomagnesemia; G47.00 Insomnia, unspecified; A59.9 Trichomoniasis, unspecified
CPT/HCPCS: 36415; 36416; 80048; 80053; 80306; 80307; 81003; 81015; 82010; 83036; 83690; 83735; 84100; 84443; 85025; 87086; 96361; 96374; 96375; A4216; C9113; J0360; J0696; J1650; J1815; J2405; J2550; J2765; J3475; J3480; J7050

== ENCOUNTER 2018-03-17 05:47 | Emergency (ER) | payer MEDICARE ==
[2018-03-17 06:53] LABS: #Basophils 0.1 thou/uL (0.0-0.2); #Monocytes 0.3 thou/uL (0.11-0.59); #Neutrophils 5.4 thou/uL (1.40-6.50); %Basophils 0.9 % (0.0-1.0); %Eosinophils 0.4 % (0.0-10.0); %Lymphocytes 25.4 % (21.0-51.0); %Monocytes 4.4 % (0.0-10.0); Hemoglobin 15.2 g/dL (12.0-16.0); Mean Corpuscular HGB CONC 32.7 g/dL (32.0-36.0); Mean Corpuscular Hemoglobin 29.6 pg (27.0-31.0); Mean Corpuscular Volume 90.6 fL (78.0-98.0); Mean Platelet Volume 7.5 fL (7.4-10.4); Platelet Count 297 thou/uL (130-400); RBC Distribution Width 11.5 % (11.5-14.5); Red Blood Cell (RBC) Count 5.13 mill/uL (4.20-5.40); White Blood Cell (WBC) Count 7.8 thou/uL (4.8-10.8)
[2018-03-17 07:29] LABS: Troponin I Less than 0.010 ng/mL (< 0.028)
[2018-03-17 07:51] LABS: ALT (SGPT) 29 U/L (8-55); AST (SGOT) 26 U/L (5-34); Albumin 4.2 g/dL (3.5-5.0); Alkaline Phosphatase 226 U/L (40-150); BUN (Urea Nitrogen) 32 mg/dL (7.0-18.7); Bilirubin, Total 0.3 mg/dL (0.2-1.2); Calc. Creatinine Clearance 0 mL/min (70-130); Calcium 10.6 mg/dL (7.8-10.44); Carbon Dioxide 24 mmol/L (22-29); Chloride 98 mmol/L (98-107); Estimated GFR-MDRD 65; Globulin 4.7 g/dL (2.4-3.5); Glucose 135 mg/dL (70-105); Potassium 3.5 mmol/L (3.5-5.1); Protein, Total 8.9 g/dL (6.0-8.3); Sodium 134 mmol/L (136-145)
[2018-03-17 08:15] LABS: Anion Gap 16 mmol/L (10-20)
== END 2018-03-17 08:15 | disposition left against medical advice (07) ==
LOC: ERS 05:47
DX: E11.649 Type 2 diabetes mellitus with hypoglycemia without coma (principal); I10 Essential (primary) hypertension; Z79.84 Long term (current) use of oral hypoglycemic drugs; Z79.899 Other long term (current) drug therapy; Z79.891 Long term (current) use of opiate analgesic
CPT/HCPCS: 36415; 36416; 80053; 82553; 84484; 85025; 93005

== ENCOUNTER 2018-03-30 17:51 | Emergency (ER) | payer MEDICARE, SELFPAY ==
[2018-03-30] MEDS ORDERED: Ondansetron PF 4 MG/2 ML Vial ONE (18:11)
[2018-03-30 20:06] LABS: #Monocytes 0.4 thou/uL (0.11-0.59); #Neutrophils 7.4 thou/uL (1.40-6.50); %Basophils 0.1 % (0.0-1.0); %Eosinophils 0.2 % (0.0-10.0); %Lymphocytes 11.6 % (21.0-51.0); %Monocytes 4.2 % (0.0-10.0); Hemoglobin 14.7 g/dL (12.0-16.0); Mean Corpuscular HGB CONC 34.4 g/dL (32.0-36.0); Mean Corpuscular Hemoglobin 30.2 pg (27.0-31.0); Mean Corpuscular Volume 87.9 fL (78.0-98.0); Mean Platelet Volume 8.2 fL (7.4-10.4); Platelet Count 235 thou/uL (130-400); RBC Distribution Width 10.9 % (11.5-14.5); Red Blood Cell (RBC) Count 4.86 mill/uL (4.20-5.40); White Blood Cell (WBC) Count 8.9 thou/uL (4.8-10.8)
[2018-03-30 20:13] LABS: Base Excess-Venous 4.4 mmol/L (0 (+/- 2.5)); Bicarbonate (HCO3v) 27.8 mmol/L (1.0-85.0); CO2 Tension (PvCO2) 36.4 mmHg (41.0-51.0); Hemoglobin - Calc 15.3 g/dL (12.0-18.0); Lactate 2.17 mmol/L (0.50-2.20); O2 Tension (PvO2) 50.5 mmHg (35.0-45.0); Potassium 2.9 mmol/L (3.4-4.7); T. Carbon Dioxide 28.9 mmol/L (1.0-85.0); pH (Venous) 7.491 (7.35-7.45); vO2 Saturation-calc 88.4 % (94-98)
[2018-03-30 20:29] LABS: CKMB 1.1 ng/mL (0-6.6); Troponin I Less than 0.010 ng/mL (< 0.028)
[2018-03-30] MEDS ORDERED: NS 0.9% w/ 40 MEQ KCL 1,000 ML IV SCH (20:30)
[2018-03-30 20:32] LABS: ALT (SGPT) 24 U/L (8-55); AST (SGOT) 20 U/L (5-34); Albumin 4.1 g/dL (3.5-5.0); Alkaline Phosphatase 186 U/L (40-150); Anion Gap 19 mmol/L (10-20); BUN (Urea Nitrogen) 31 mg/dL (7.0-18.7); Bilirubin, Total 0.7 mg/dL (0.2-1.2); CK (CPK) 67 U/L (29-168); Calc. Creatinine Clearance 0 mL/min (70-130); Calcium 10.5 mg/dL (7.8-10.44); Carbon Dioxide 28 mmol/L (22-29); Chloride 91 mmol/L (98-107); Estimated GFR-MDRD 43; Globulin 4.9 g/dL (2.4-3.5); Glucose 510 mg/dL (70-105); Lipase 21 U/L (8-78); Sodium 135 mmol/L (136-145)
== END 2018-03-30 22:56 | disposition left against medical advice (07) ==
LOC: ERS 17:51
DX: E11.65 Type 2 diabetes mellitus with hyperglycemia (principal); N17.9 Acute kidney failure, unspecified; I10 Essential (primary) hypertension; E87.6 Hypokalemia; Z79.4 Long term (current) use of insulin; Z79.84 Long term (current) use of oral hypoglycemic drugs; Z79.899 Other long term (current) drug therapy
CPT/HCPCS: 36415; 36416; 80053; 82010; 82330; 82550; 82553; 82803; 83605; 83690; 84484; 85025; 93005; 96365; 96366; J2405

== ENCOUNTER 2019-02-01 16:30 | Inpatient (IN) | payer MEDICARE ==
[2019-02-01] MEDS ORDERED: Ondansetron PF 4 MG/2 ML Vial ONE ×2 (16:48→17:34)
[2019-02-01] MEDS ORDERED: Promethazine HCl 25 MG/ML VIAL ONE (17:34)
[2019-02-01] MEDS ORDERED: Haloperidol Lactate 5 MG/ML VIAL ONE (17:34)
[2019-02-01 17:55] LABS: #Lymphocytes 1.4 thou/uL (1.20-3.40); #Monocytes 0.6 thou/uL (0.11-0.59); #Neutrophils 8.8 thou/uL (1.40-6.50); %Basophils 0.3 % (0.0-1.0); %Eosinophils 0.1 % (0.0-10.0); %Lymphocytes 12.9 % (21.0-51.0); %Monocytes 5.6 % (0.0-10.0); %Neutrophils 81.1 % (42.0-75.0); Mean Corpuscular HGB CONC 35.5 g/dL (32.0-36.0); Mean Corpuscular Hemoglobin 30.4 pg (27.0-31.0); Mean Corpuscular Volume 85.5 fL (78.0-98.0); Mean Platelet Volume 7.6 fL (7.4-10.4); Platelet Count 289 thou/uL (130-400); RBC Distribution Width 12.6 % (11.5-14.5); Red Blood Cell (RBC) Count 4.62 mill/uL (4.20-5.40); White Blood Cell (WBC) Count 10.9 thou/uL (4.8-10.8)
[2019-02-01 18:21] LABS: ALT (SGPT) 29 U/L (8-55); AST (SGOT) 21 U/L (5-34); Alkaline Phosphatase 182 U/L (40-150); Anion Gap 26 mmol/L (10-20); BUN (Urea Nitrogen) 37 mg/dL (7.0-18.7); Bilirubin, Total 0.7 mg/dL (0.2-1.2); CK (CPK) 51 U/L (29-168); Calc. Creatinine Clearance 0 mL/min (70-130); Calcium 10.8 mg/dL (7.8-10.44); Carbon Dioxide 20 mmol/L (22-29); Chloride 88 mmol/L (98-107); Estimated GFR-MDRD 36; Globulin 3.8 g/dL (2.4-3.5); Lipase 20 U/L (8-78); Potassium 3.2 mmol/L (3.5-5.1); Protein, Total 7.8 g/dL (6.0-8.3); Sodium 131 mmol/L (136-145)
[2019-02-01 18:28] LABS: Glucose 593 mg/dL (70-105)
[2019-02-01] MEDS ORDERED: Insulin Regular 100 units/100 ml in NS IVPB SCH (20:15)
[2019-02-01] MEDS ORDERED: hydrALAZINE 20 MG/ML VIAL ONE (20:48)
[2019-02-01] MEDS ORDERED: Furosemide 40 MG/4 ML VIAL ONE (20:49)
[2019-02-01] MEDS ORDERED: Nitroglycerin 2% Ointment 1 INCH/1 GM Packet ONE (20:49)
[2019-02-01] MEDS ORDERED: Dextrose 5 %-0.45 % NaCl 1,000 ML IV PRN (20:53)
[2019-02-01] MEDS ORDERED: Ondansetron ODT 4 MG TAB PO PRN (20:53)
[2019-02-01] MEDS ORDERED: NS 0.9% w/ 20 MEQ KCL 1,000 ML IV PRN ×2 (20:53)
[2019-02-01] MEDS ORDERED: Acetaminophen 650 MG Suppository PR PRN (20:53)
[2019-02-01] MEDS ORDERED: Sodium Chloride 0.9% 1,000 ML IV PRN ×4 (20:53)
[2019-02-01] MEDS ORDERED: CCU Electrolyte Replacement 1 EACH IVPB SCH (20:53)
[2019-02-01] MEDS ORDERED: Acetaminophen 325 MG TAB PO PRN (20:53)
[2019-02-01] MEDS ORDERED: hydrALAZINE 20 MG/ML VIAL SLOW IVP PRN (20:56)
[2019-02-01] MEDS ORDERED: HUMULIN R 100 UNITS in Sodium Chloride 0.9% 100 ML IVPB SCH (21:00)
[2019-02-01] MEDS ORDERED: Potassium Phosphate 9 MMOL in Sodium Chloride 0.9% 100 ML IVPB PRN (21:04)
[2019-02-01] MEDS ORDERED: Potassium Phosphate 15 MMOL in Sodium Chloride 0.9% 250 ML 250 ML IV PRN (21:04)
[2019-02-01] MEDS ORDERED: Potassium Chloride 40 MEQ in Sodium Chloride 0.9% 250 ML 250 ML IVPB PRN (21:04)
[2019-02-01] MEDS ORDERED: Potassium Chloride 40 MEQ in Premix Bag 1 BAG IVPB PRN (21:04)
[2019-02-01] MEDS ORDERED: Magnesium 2 GM/50 ML 2 GM in Premix Bag 1 BAG IVPB PRN (21:04)
[2019-02-01] MEDS ORDERED: CCU ELECTROLYTE REPLACEMENT PROTOCOL FS PRN (21:04)
[2019-02-01] MEDS ORDERED: PHOS-NAK 1 PKT PACK PO PRN ×2 (21:04)
[2019-02-01] MEDS ORDERED: Potassium Phosphate 12 MMOL in Sodium Chloride 0.9% 250 ML 250 ML IV PRN (21:04)
[2019-02-01] MEDS ORDERED: Magnesium Oxide 400 MG TAB PO PRN (21:04)
[2019-02-01] MEDS ORDERED: Potassium Chloride 20 MEQ TAB PO PRN (21:04)
[2019-02-01 21:41] LABS: Amphetamine Not Detected (NotDetected); Barbiturates Screen Not Detected (NotDetected); Benzodiazepine Screen Not Detected (NotDetected); Cocaine Metabolite Screen Not Detected (NotDetected); Medtox Control Line Valid? VALID (VALID); Medtox Reader # READER 4; Methadone Not Detected (NotDetected); Methamphetamine Not Detected (NotDetected); Opiate Screen Not Detected (NotDetected); Oxycodone Screen Not Detected (NotDetected); Phencyclidine (PCP) Not Detected (NotDetected); THC/Cannabinoid Screen Not Detected (NotDetected); Tricyclic Screen Not Detected (NotDetected)
[2019-02-01 22:12] LABS: Anion Gap 15 mmol/L (10-20); BUN (Urea Nitrogen) 30 mg/dL (7.0-18.7); Calc. Creatinine Clearance 0 mL/min (70-130); Carbon Dioxide 27 mmol/L (22-29); Chloride 99 mmol/L (98-107); Estimated GFR-MDRD 46; Glucose 396 mg/dL (70-105); Potassium 2.5 mmol/L (3.5-5.1); Sodium 138 mmol/L (136-145)
[2019-02-01 22:17] LABS: Bilirubin Negative (Negative); Blood, Urine Moderate (Negative); Glucose, Urine (Dipstick) 500 mg/dL (Negative); Leukocyte Negative (Negative); Nitrite Negative (Negative); Protein, Urine (Dipstick) > or equal to 300 mg/dL (Neg-Trace); Urobilinogen 0.2 mg/dL (Less than 2)
[2019-02-01 22:20] LABS: Clarity Cloudy (Clear)
[2019-02-01 22:23] VITALS: BMI 24.7
[2019-02-01 22:23] LABS: Bacteria/HPF 4+ HPF (None Seen); RBC/HPF 21-50 HPF (0-3)
[2019-02-01 22:24] LABS: Yeast-Budding 2+ HPF (None Seen)
[2019-02-01 22:25] LABS: Yeast-Hyphae Rare HPF (None Seen)
[2019-02-01] MEDS: Magnesium Oxide 400 MG TAB PO PRN (23:26)
[2019-02-02] MEDS: D5 1/2 NS w/20 mEq KCL 1,000 ML IV PRN ×4 (00:15→12:17)
[2019-02-02] MEDS: Magnesium Oxide 400 MG TAB PO PRN (01:11)
[2019-02-02 01:44] LABS: Anion Gap 13 mmol/L (10-20); BUN (Urea Nitrogen) 30 mg/dL (7.0-18.7); Calc. Creatinine Clearance 41 mL/min (70-130); Calcium 8.9 mg/dL (7.8-10.44); Carbon Dioxide 25 mmol/L (22-29); Chloride 105 mmol/L (98-107); Estimated GFR-MDRD 50; Glucose 276 mg/dL (70-105); Potassium 3.9 mmol/L (3.5-5.1); Sodium 139 mmol/L (136-145)
--- NOTE | 2019-02-02 03:25 | HP ---
PRIMARY CARE DOCTOR: None reported. CODE STATUS: Full code. TIME OF EVALUATION: 8:30 p.m. CHIEF COMPLAINT: Abdominal pain. HISTORY OF PRESENT ILLNESS: This is a 48-year-old female patient with past medical history of diabetes, came to the hospital after having nausea, vomiting, abdominal pain for the past 3 days. No clear triggers, no alleviating factors. The patient reported her PCP is Dr. Dubon at [facility]. Symptoms were severe, generalized, started insidiously and has been gradually getting worse. REVIEW OF SYSTEMS: All systems reviewed were negative except for the findings mentioned above. PAST MEDICAL HISTORY: Positive for diabetes type 2, hypertension. PAST SURGICAL HISTORY: The patient has hysterectomy, cataract surgery. FAMILY HISTORY: Reviewed and non contributory for current presentations PSYCHIATRIC HISTORY: No history of suicidal ideation. No history of homicidal ideation. No previous psych history. SOCIAL HISTORY: No alcohol, no drugs, no smoking history. FAMILY HISTORY: Reviewed noncontributory for current presentation. KNOWN ALLERGIES: No known drug allergies. REPORTED MEDICATIONS: 1. Pravastatin. 2. Carvedilol. 3. Metoclopramide. 4. Zofran. 5. K-Dur. 6. Lantus. PHYSICAL EXAMINATION: VITAL SIGNS: On presentation, blood pressure 172/130 with heart rate of 116, respiratory rate was 28, temperature 97.6, pain was 10, oxygen saturation was on 100% room air. GENERAL APPEARANCE: The patient seems to be in distress due to nausea, vomiting and the symptoms. HEENT: Eye, normal conjunctivae, dry oral mucosa. Anicteric. No JVD. RESPIRATORY: Bilateral air entry. No rales. No wheezes. Symmetric expansion. CARDIOVASCULAR: Normal rate and regular rhythm. No murmurs. No gallops. No edema. ABDOMEN: Soft, normal bowel sounds. MUSCULOSKELETAL: Baseline range of motion and strength. SKIN: Warm and intact. No pallor. No rash. No redness. Capillary refill seems to be intact. NEUROLOGIC: No evidence of any new focal weakness. Cranial nerves seems to be intact. DIAGNOSTIC DATA: EKG was reviewed, the patient has sinus tachycardia at the rate of 115 with some PACs, biatrial enlargement. LABORATORY DATA: Reviewed, the patient has a white count of 10.9, hemoglobin 14 , MCV 85.5, platelet count 289. Chemistry: Sodium 131, potassium 3.2, chloride 88, carbon dioxide 20, anion gap 26, BUN 37, creatinine 1.79. The repeat chemistries have improved. The kidney function is also improving. The anion gap is close. The carbon dioxide is back to normal. The last blood sugar was 276. LFTs were negative. Urine was done, it was mildly positive with white count of 4-6, no rbcs, glucosuria. Drug screen was negative. Beta hydroxybutyrate 4.99. ASSESSMENT AND PLAN: The patient will be placed in the hospital with following medical problems: 1. She has early stage of diabetic ketoacidosis. The patient has been started on diabetic ketoacidosis protocol. Chemistry is being corrected, likely to be able to switch to subcu insulin and p.o. early in the morning once the patient is tolerating p.o. 2. Possible urinary tract infection. The patient has some mildly positive urine. Given presentation of diabetic ketoacidosis, we will follow cultures and treat accordingly. 3. Uncontrolled hypertension. The patient presented with very high blood pressure, this has improved during admission. She has received hydralazine. We will reconcile home medications for optimal control. Might need some p.r.n. 4. Deep venous thrombosis prophylaxis. Job ID: [id number] [facility]
[2019-02-02 05:49] LABS: #Eosinphils 0.1 thou/uL (0.0-0.7); #Lymphocytes 1.3 thou/uL (1.20-3.40); #Monocytes 0.8 thou/uL (0.11-0.59); #Neutrophils 11.3 thou/uL (1.40-6.50); %Eosinophils 0.7 % (0.0-10.0); %Lymphocytes 9.8 % (21.0-51.0); %Monocytes 5.9 % (0.0-10.0); %Neutrophils 83.6 % (42.0-75.0); Hemoglobin 11.8 g/dL (12.0-16.0); Mean Corpuscular HGB CONC 34.7 g/dL (32.0-36.0); Mean Corpuscular Hemoglobin 29.8 pg (27.0-31.0); Mean Corpuscular Volume 85.9 fL (78.0-98.0); Mean Platelet Volume 8.3 fL (7.4-10.4); Platelet Count 180 thou/uL (130-400); Red Blood Cell (RBC) Count 3.97 mill/uL (4.20-5.40); White Blood Cell (WBC) Count 13.5 thou/uL (4.8-10.8)
[2019-02-02] MEDS: Ondansetron PF 4 MG/2 ML Vial IVP PRN (05:56)
[2019-02-02 06:00] LABS: Anion Gap 13 mmol/L (10-20); BUN (Urea Nitrogen) 27 mg/dL (7.0-18.7); Calc. Creatinine Clearance 43 mL/min (70-130); Calcium 8.9 mg/dL (7.8-10.44); Carbon Dioxide 23 mmol/L (22-29); Chloride 105 mmol/L (98-107); Estimated GFR-MDRD 53; Glucose 235 mg/dL (70-105); Potassium 4.1 mmol/L (3.5-5.1); Sodium 137 mmol/L (136-145)
[2019-02-02] MEDS: Labetalol HCl 100 MG/20 ML VIAL SLOW IVP PRN ×3 (06:00→23:37)
[2019-02-02] MEDS: Enoxaparin Sodium 40 MG/0.4 ML SYRINGE SC SCH (08:51)
[2019-02-02] MEDS ORDERED: Ondansetron ODT 4 MG TAB PO PRN (13:56)
[2019-02-02] MEDS ORDERED: HumaLOG 300 UNITS/3 ML VIAL SC PRN (13:58)
[2019-02-02] MEDS ORDERED: Dextrose 50% Abboject 50 ML SYRINGE SLOW IVP PRN (13:58)
[2019-02-02] MEDS ORDERED: Dextrose 5% in Water 1,000 ML IV PRN (13:58)
[2019-02-02] MEDS ORDERED: diphenhydrAMINE 25 MG CAP PO PRN (13:59)
[2019-02-02] MEDS ORDERED: Docusate 100 MG CAP PO PRN (13:59)
[2019-02-02] MEDS ORDERED: Benzonatate 100 MG CAP PO PRN (13:59)
[2019-02-02] MEDS: Promethazine HCl 25 MG/ML VIAL SLOW IVP PRN (14:48)
[2019-02-02] MEDS: hydrALAZINE 20 MG/ML VIAL SLOW IVP PRN ×2 (14:48→18:15)
--- NOTE | 2019-02-02 14:53 | RAD ---
XR Chest 1 View History: Cough Comparison: Radiograph December 11, 2017 Findings: Heart size is markedly enlarged. No pneumothorax. Mild pulmonary venous congestion. No acut e osseous abnormality. Impression: Markedly cardiomegaly and mild pulmonary venous congestion.
[2019-02-02] MEDS: HumaLOG 300 UNITS/3 ML VIAL SC PRN (17:02)
[2019-02-02] MEDS: Carvedilol 3.125 MG TAB PO SCH (17:02)
--- NOTE | 2019-02-02 17:57 | PDOC.EVN ---
Event Note - Event Note Event Note: Out of DKA, transition to sub cutaneous insulin, and long acting insulin this PM. Tolerating diet. Restart home BP meds, start Lisinopril as she is a diabetic will need Da inh on board. Clinically improving.
[2019-02-02] MEDS ORDERED: Lisinopril 5 MG TAB PO SCH (19:15)
[2019-02-02] MEDS: Simvastatin 5 MG TAB PO SCH (20:39)
[2019-02-02] MEDS: Potassium Chloride 20 MEQ TAB PO SCH (20:40)
[2019-02-02] MEDS: Insulin Glargine 30 UNITS in Pre-Filled Syringe 1 EACH SC SCH (20:40)
[2019-02-02] MEDS ORDERED: Non-Formulary Item 1 EACH (Insulin Glargine,Hum.Rec.Anlog [Lantus Solostar] 30 UNIT) SQ SCH (21:00)
[2019-02-03] MEDS: HumaLOG 300 UNITS/3 ML VIAL SC PRN ×2 (06:44→17:41)
[2019-02-03 06:49] LABS: Anion Gap 12 mmol/L (10-20); BUN (Urea Nitrogen) 18 mg/dL (7.0-18.7); Calc. Creatinine Clearance 52 mL/min (70-130); Calcium 9.3 mg/dL (7.8-10.44); Carbon Dioxide 23 mmol/L (22-29); Chloride 102 mmol/L (98-107); Estimated GFR-MDRD 66; Glucose 159 mg/dL (70-105); Potassium 4.6 mmol/L (3.5-5.1); Sodium 132 mmol/L (136-145)
[2019-02-03] MEDS: Ondansetron PF 4 MG/2 ML Vial IVP PRN ×2 (07:35→17:36)
[2019-02-03] MEDS ORDERED: Carvedilol 3.125 MG TAB PO SCH (08:03)
[2019-02-03] MEDS ORDERED: Metoclopramide HCl 10 MG TAB PO SCH (09:00)
[2019-02-03] MEDS ORDERED: Metoclopramide HCl 10 MG/2 ML VIAL IVP PRN (10:25)
[2019-02-03] MEDS ORDERED: ISOVUE-370 76%-LOCM 1 ML ONE (11:12)
[2019-02-03] MEDS: Labetalol HCl 100 MG/20 ML VIAL SLOW IVP PRN (11:16)
[2019-02-03] MEDS: Promethazine HCl 25 MG/ML VIAL SLOW IVP PRN (11:16)
[2019-02-03] MEDS: Enoxaparin Sodium 40 MG/0.4 ML SYRINGE SC SCH (11:23)
[2019-02-03] MEDS: Carvedilol 3.125 MG TAB PO SCH (11:30)
[2019-02-03] MEDS: Sodium Chloride 0.9% 1,000 ML IV SCH (12:30)
[2019-02-03] MEDS: Lisinopril 5 MG TAB PO SCH (12:31)
[2019-02-03] MEDS: Carvedilol 6.25 MG TAB PO SCH ×2 (12:31→17:37)
[2019-02-03] MEDS: hydrALAZINE 20 MG/ML VIAL SLOW IVP PRN (13:45)
--- NOTE | 2019-02-03 15:08 | PDOC.HOSPP ---
- Subjective Subjective: Seen and examined. Abdominal pain, nausea, and vomiting this morning. Blood pressure not controlled, unable take all medications. Will order CT scan of the abdomen further evaluate. Abdomen is soft and nondistended at this time. Patient does have diabetic gastroparesis a baseline. DKA resolved. - Objective Vital Signs & Weight: Vital Signs (12 hours) Temp Pulse BP Pulse Ox 02/03/19 13:45 103 H 184/126 H 02/03/19 12:31 103 H 184/126 H 02/03/19 11:16 116 H 189/135 H 02/03/19 11:14 97.3 F L 02/03/19 07:54 99 02/03/19 07:26 97.0 F L 02/03/19 03:36 97.8 F Weight Weight 114 lb 9.6 oz Most Recent Monitor Data Heart Rate from ECG 110 NIBP 142/100 NIBP BP-Mean 114 Respiration from ECG 23 SpO2 96 I&O: 02/02/19 02/03/19 02/04/19 06:59 06:59 06:59 Intake Total 3473 2839.2 Output Total 200 1800 Balance 3273 1039.2 Result Diagrams: 02/02/19 05:31 02/03/19 05:53 Additional Labs: Accuchecks 02/03/19 02/03/19 02/02/19 10:36 05:47 20:31 POC Glucose 194 H 162 H 233 H 02/02/19 16:40 POC Glucose 180 H Hospitalist ROS - Review of Systems All other systems reviewed; all pertinent +/- noted in HPI/Subj - Medication Medications: Active Medications Generic Name Dose Route Start Last Admin Trade Name Freq PRN Reason Stop Dose Admin Carvedilol 6.25 mg 02/03/19 08:00 02/03/19 12:31 Coreg PO 6.25 mg BID-WM ELISABET Administration Enoxaparin Sodium 40 mg 02/02/19 09:00 02/03/19 11:23 Lovenox SC 40 mg 0900 ELISABET Administration Hydralazine HCl 10 mg 02/02/19 13:59 02/03/19 13:45 Apresoline SLOW IVP 10 mg Q4H PRN Administration Hypertension Insulin Glargine 30 units/ 0.3 mls @ 0 mls/hr 02/02/19 21:00 02/02/19 20:40 Miscellaneous Medication SC 0.3 mls BID ELISABET Administration Sodium Chloride 1,000 mls @ 75 mls/hr 02/03/19 11:15 02/03/19 12:30 Normal Saline 0.9% IV 1,000 mls .[id number] ELISABET Administration Insulin Human Lispro 0 units 02/02/19 13:58 02/03/19 06:44 Humalog SC 2 unit .MODERATE SLIDING SC PRN Administration Moderate Correctional Scale Labetalol HCl 10 mg 02/02/19 05:56 02/03/19 11:16 Normodyne SLOW IVP 2 ml Q6H PRN Administration SBP > 180 Lisinopril 5 mg 02/03/19 09:00 02/03/19 12:31 Zestril PO 5 mg DAILY ELISABET Administration Magnesium Oxide 400 mg 02/01/19 21:04 02/02/19 01:11 Magnesium Oxide PO 400 mg BIDPRN PRN Administration FOR SERUM MAG 1.4 - 2.0 Metoclopramide HCl 10 mg 02/03/19 10:25 02/03/19 13:42 Reglan IVP 10 mg Q6H PRN Administration Nausea/Vomiting Ondansetron HCl 4 mg 02/01/19 20:53 02/03/19 07:35 Zofran IVP 4 mg Q6H PRN Administration Nausea/Vomiting Potassium Chloride 40 meq 02/01/19 21:04 02/02/19 01:11 Klor-Con PER TUBE 40 meq ASDIR PRN Administration FOR SERUM K+ 2.5-3.5 Potassium Chloride 20 meq 02/02/19 21:00 02/02/19 20:40 K-Dur PO 20 meq BID ELISABET Administration Promethazine HCl 12.5 mg 02/02/19 05:57 02/03/19 11:16 Phenergan SLOW IVP 0.5 ml Q6H PRN Administration Nausea/Vomiting Simvastatin 10 mg 02/02/19 21:00 02/02/19 20:39 Zocor PO 10 mg HS ELISABET Administration Sodium Chloride 10 ml 02/02/19 09:00 02/03/19 07:36 Flush - Normal Saline IVF 10 ml Q12HR ELISABET Administration Sodium Chloride 10 ml 02/01/19 21:08 02/03/19 13:51 Flush - Normal Saline IVF 10 ml PRN PRN Administration Saline Flush - Exam General Appearance: ill appearing Eye: PERRL, anicteric sclera ENT: no oropharyngeal lesions, dry oral mucosa Neck: supple, symmetric, no JVD Heart: RRR, no murmur, no gallops, no rubs Respiratory: CTAB, no wheezes, no rales, normal chest expansion Gastrointestinal: soft, non-distended, no guarding, no rigidity, tender to palpation Extremities: no edema Skin: no lesions, no rashes Neurological: CN's grossly intact, normal sensation to touch, no weakness Musculoskeletal: normal strength Psychiatric: normal affect, A&O x 3 Hosp A/P (1) DKA (diabetic ketoacidoses) Code(s): E11.10 - TYPE 2 DIABETES MELLITUS WITH KETOACIDOSIS WITHOUT COMA Status: Resolved (2) Gastroenteritis Code(s): K52.9 - NONINFECTIVE GASTROENTERITIS AND COLITIS, UNSPECIFIED Status : Acute (3) Hypertensive urgency Code(s): I16.0 - HYPERTENSIVE URGENCY Status: Acute (4) Hypokalemia Code(s): E87.6 - HYPOKALEMIA Status: Acute (5) Hypovolemia associated with vomiting Code(s): E86.1 - HYPOVOLEMIA Status: Acute (6) Metabolic acidosis Code(s): E87.2 - ACIDOSIS Status: Acute (7) Nausea and vomiting Code(s): R11.2 - NAUSEA WITH VOMITING, UNSPECIFIED Status: Acute Qualifiers: Vomiting type: unspecified Vomiting Intractability: intractable Qualified Code(s): R11.2 - Nausea with vomiting, unspecified (8) DM type 2 (diabetes mellitus, type 2) Status: Chronic (9) Dyslipidemia Code(s): E78.5 - HYPERLIPIDEMIA, UNSPECIFIED Status: Chronic (10) HTN (hypertension) Code(s): I10 - ESSENTIAL (PRIMARY) HYPERTENSION Status: Chronic Qualifiers: Hypertension type: essential hypertension Qualified Code(s): I10 - Essential (primary) hypertension (11) Diabetic gastroparesis Code(s): E11.43 - TYPE 2 DIABETES W DIABETIC AUTONOMIC (POLY)NEUROPATHY; K31.84 - GASTROPARESIS Status: Suspected - Plan IMCU DKA resolved CT scan of the abdomen/ pelvis to further evaluate abdominal pain nausea and vomiting persistent, symptomatic therapy symptomatic therapy for nausea and vomiting patient does have diabetic gastroparesis at baseline IV Reglan long and short acting insulin to control blood sugar IV fluids blood pressure control with combination of IV PRN medications and when able to take orals her home medications continue home medications is able
--- NOTE | 2019-02-03 15:40 | CT ---
CT ABDOMEN AND PELVIS WITH IV CONTRAST: 02/03/19 Axial tomograms with multiplanar reconstruction performed. Oral contrast was not administered. INDICATIONS: Abdominal pain. Comparison made to CT abdomen and pelvis 11/17/17 which was performed in the atrial phase. FINDINGS: Lung bases clear. Liver and spleen unremarkable. Gallbladder is mildly distended but has a similar appearance to the pr ior exam. Review of the pancreas reveals evidence of mild atrophy. Pancreatic duct is mildly prominent. There a re two adjacent pancreatic cysts now seen in the body of the pancreas. The larger measuring approxima tely 9 mm and adjacent smaller one measuring 7 to 8 mm. These cystic changes appear to be new when co mpared to the prior studies from 2018. Spleen unremarkable. Stomach and duodenum unremarkable. Adrenal glands and kidneys unremarkable. There are tiny subcentimeter low density lesions in both kid neys which are too small to adequately characterize. No hydronephrosis. Urinary bladder unremarkable. Small bowel loops show nonspecific distention without dilatation. There is stool throughout the colon . Aorta normal caliber. No adenopathy apparent. Osseous structures unremarkable. IMPRESSION: 1. There are two adjacent cystic lesions seen in the body of the pancreas which appear new from prior studies. Mild prominence of the pancreatic duct and pancreatic atrophy again noted. Suggest bianka rt term follow-up to confirm stability. 2. Otherwise no acute process. POS: OFF
[2019-02-03] MEDS: Potassium Chloride 20 MEQ TAB PO SCH ×2 (16:49→21:00)
[2019-02-03] MEDS: Insulin Glargine 30 UNITS in Pre-Filled Syringe 1 EACH SC SCH ×2 (16:49→21:01)
[2019-02-03] MEDS: Simvastatin 5 MG TAB PO SCH (21:01)
[2019-02-04] MEDS: Sodium Chloride 0.9% 1,000 ML IV SCH ×2 (01:52→17:29)
[2019-02-04 04:53] LABS: Anion Gap 7 mmol/L (10-20); BUN (Urea Nitrogen) 17 mg/dL (9.8-20.1); Calc. Creatinine Clearance 54 mL/min (70-130); Calcium 8.6 mg/dL (7.8-10.44); Carbon Dioxide 28 mmol/L (22-29); Chloride 103 mmol/L (98-107); Estimated GFR-MDRD 70; Potassium 3.5 mmol/L (3.5-5.1); Sodium 134 mmol/L (136-145)
[2019-02-04 04:59] LABS: Glucose 46 mg/dL (70-105)
[2019-02-04 08:52] LABS: #Basophils 0.1 thou/uL (0.0-0.2); #Eosinphils 0.1 thou/uL (0.0-0.7); #Lymphocytes 2.2 thou/uL (1.20-3.40); #Monocytes 0.8 thou/uL (0.11-0.59); #Neutrophils 4.7 thou/uL (1.40-6.50); %Basophils 1.2 % (0.0-1.0); %Eosinophils 0.9 % (0.0-10.0); %Lymphocytes 28.1 % (21.0-51.0); %Neutrophils 59.7 % (42.0-75.0); Hemoglobin 11.8 g/dL (12.0-16.0); Mean Corpuscular HGB CONC 33.4 g/dL (32.0-36.0); Mean Corpuscular Hemoglobin 29.5 pg (27.0-31.0); Mean Corpuscular Volume 88.2 fL (78.0-98.0); Mean Platelet Volume 7.2 fL (7.4-10.4); Platelet Count 259 thou/uL (130-400); RBC Distribution Width 13.3 % (11.5-14.5); Red Blood Cell (RBC) Count 4.01 mill/uL (4.20-5.40); White Blood Cell (WBC) Count 7.8 thou/uL (4.8-10.8)
[2019-02-04] MEDS: Carvedilol 6.25 MG TAB PO SCH ×2 (09:55→17:28)
[2019-02-04] MEDS: Lisinopril 5 MG TAB PO SCH (09:56)
[2019-02-04] MEDS: Enoxaparin Sodium 40 MG/0.4 ML SYRINGE SC SCH (09:56)
[2019-02-04] MEDS: Potassium Chloride 20 MEQ TAB PO SCH ×2 (09:57→21:15)
[2019-02-04] MEDS: Insulin Glargine 25 UNITS in Pre-Filled Syringe 1 EACH SC SCH ×2 (10:04→21:15)
--- NOTE | 2019-02-04 11:26 | PDOC.HOSPP ---
- Subjective Subjective: Seen and examined. Patient having a "good birthday." No longer with uncontrolled nausea and vomiting. Tolerated breakfast without problems. Still with mild abdominal pains in the lower quadrants. Not moving bowel, though has not kept anything down in the past 4 days. I discussed all results of CT scan with the patient. Time was given to ask questions, all questions answered in detail. - Objective Vital Signs & Weight: Vital Signs (12 hours) Temp Pulse BP 02/04/19 11:19 97.6 F 02/04/19 09:56 96 169/121 H 02/04/19 09:55 169/121 H 02/04/19 07:33 97.5 F L 02/04/19 04:00 97.6 F 02/03/19 23:42 98.0 F Weight Weight 114 lb 9.6 oz Most Recent Monitor Data Heart Rate from ECG 109 NIBP 146/100 NIBP BP-Mean 115 Respiration from ECG 17 SpO2 95 I&O: 02/03/19 02/04/19 02/05/19 06:59 06:59 06:59 Intake Total 2839.2 2326 Output Total 1800 600 Balance 1039.2 1726 Result Diagrams: 02/04/19 08:29 02/04/19 04:03 Additional Labs: Accuchecks 02/04/19 02/04/19 02/03/19 10:49 05:32 20:09 POC Glucose 88 81 142 H 02/03/19 16:39 POC Glucose 188 H Radiology Reviewed by me: Yes (CT abdomen) Hospitalist ROS - Review of Systems All other systems reviewed; all pertinent +/- noted in HPI/Subj - Medication Medications: Active Medications Generic Name Dose Route Start Last Admin Trade Name Freq PRN Reason Stop Dose Admin Carvedilol 6.25 mg 02/03/19 08:00 02/04/19 09:55 Coreg PO 6.25 mg BID-WM ELISABET Administration Enoxaparin Sodium 40 mg 02/02/19 09:00 02/04/19 09:56 Lovenox SC 40 mg 0900 ELISABET Administration Hydralazine HCl 10 mg 02/02/19 13:59 02/03/19 13:45 Apresoline SLOW IVP 10 mg Q4H PRN Administration Hypertension Sodium Chloride 1,000 mls @ 75 mls/hr 02/03/19 11:15 02/04/19 01:52 Normal Saline 0.9% IV 1,000 mls .[id number] ELISABET Administration Insulin Glargine 25 units/ 0.25 mls @ 1 mls/hr 02/04/19 09:00 02/04/19 10:04 Miscellaneous Medication SC 0.25 mls BID ELISABET Administration Insulin Human Lispro 0 units 02/02/19 13:58 02/03/19 17:41 Humalog SC 2 unit .MODERATE SLIDING SC PRN Administration Moderate Correctional Scale Labetalol HCl 10 mg 02/02/19 05:56 02/03/19 11:16 Normodyne SLOW IVP 2 ml Q6H PRN Administration SBP > 180 Lisinopril 5 mg 02/03/19 09:00 02/04/19 09:56 Zestril PO 5 mg DAILY ELISABET Administration Magnesium Oxide 400 mg 02/01/19 21:04 02/02/19 01:11 Magnesium Oxide PO 400 mg BIDPRN PRN Administration FOR SERUM MAG 1.4 - 2.0 Metoclopramide HCl 10 mg 02/03/19 10:25 02/03/19 13:42 Reglan IVP 10 mg Q6H PRN Administration Nausea/Vomiting Ondansetron HCl 4 mg 02/01/19 20:53 02/03/19 17:36 Zofran IVP 4 mg Q6H PRN Administration Nausea/Vomiting Potassium Chloride 40 meq 02/01/19 21:04 02/02/19 01:11 Klor-Con PER TUBE 40 meq ASDIR PRN Administration FOR SERUM K+ 2.5-3.5 Potassium Chloride 20 meq 02/02/19 21:00 02/04/19 09:57 K-Dur PO 20 meq BID ELISABET Administration Promethazine HCl 12.5 mg 02/02/19 05:57 02/03/19 11:16 Phenergan SLOW IVP 0.5 ml Q6H PRN Administration Nausea/Vomiting Simvastatin 10 mg 02/02/19 21:00 02/03/19 21:01 Zocor PO 10 mg HS ELISABET Administration Sodium Chloride 10 ml 02/02/19 09:00 02/04/19 09:57 Flush - Normal Saline IVF 10 ml Q12HR ELISABET Administration Sodium Chloride 10 ml 02/01/19 21:08 02/03/19 13:51 Flush - Normal Saline IVF 10 ml PRN PRN Administration Saline Flush - Exam General Appearance: NAD Eye: PERRL, anicteric sclera ENT: no oropharyngeal lesions, moist mucosa Neck: supple, symmetric, no lymphadenopathy Heart: RRR, no murmur, no gallops Respiratory: CTAB, no wheezes, no rales, no ronchi Gastrointestinal: soft, non-distended, no guarding, no rigidity, tender to palpation Extremities: no edema Skin: no lesions, no rashes Neurological: CN's grossly intact, no focal deficits, no new deficit Musculoskeletal: generalized weakness Psychiatric: normal affect, A&O x 3 Hosp A/P (1) DKA (diabetic ketoacidoses) Code(s): E11.10 - TYPE 2 DIABETES MELLITUS WITH KETOACIDOSIS WITHOUT COMA Status: Resolved (2) Gastroenteritis Code(s): K52.9 - NONINFECTIVE GASTROENTERITIS AND COLITIS, UNSPECIFIED Status : Acute (3) Hypertensive urgency Code(s): I16.0 - HYPERTENSIVE URGENCY Status: Acute (4) Hypokalemia Code(s): E87.6 - HYPOKALEMIA Status: Acute (5) Hypovolemia associated with vomiting Code(s): E86.1 - HYPOVOLEMIA Status: Acute (6) Metabolic acidosis Code(s): E87.2 - ACIDOSIS Status: Acute (7) Nausea and vomiting Code(s): R11.2 - NAUSEA WITH VOMITING, UNSPECIFIED Status: Acute Qualifiers: Vomiting type: unspecified Vomiting Intractability: intractable Qualified Code(s): R11.2 - Nausea with vomiting, unspecified (8) DM type 2 (diabetes mellitus, type 2) Status: Chronic (9) Dyslipidemia Code(s): E78.5 - HYPERLIPIDEMIA, UNSPECIFIED Status: Chronic (10) HTN (hypertension) Code(s): I10 - ESSENTIAL (PRIMARY) HYPERTENSION Status: Chronic Qualifiers: Hypertension type: essential hypertension Qualified Code(s): I10 - Essential (primary) hypertension (11) Diabetic gastroparesis Code(s): E11.43 - TYPE 2 DIABETES W DIABETIC AUTONOMIC (POLY)NEUROPATHY; K31.84 - GASTROPARESIS Status: Suspected - Plan Plan: IMCU GI consultation, recommendations appreciated CT scan of the abdomen/ pelvis noted Small pancreatic cyst will likely need monitored over time DKA resolved abdominal pain, improved nausea and vomiting improved with symptomatic therapy patient does have diabetic gastroparesis at baseline IV Reglan long and short acting insulin to control blood sugar, decrease from 30units to 25 units until oral intake has normalized Continue IV fluids PRN medications as needed for BP control Oral BP regimen continue home medications is able
[2019-02-04] MEDS: Simvastatin 5 MG TAB PO SCH (21:15)
--- NOTE | 2019-02-05 00:32 | CON ---
DATE OF CONSULTATION: 02/04/2019 CHIEF COMPLAINT: Nausea and vomiting. HISTORY OF PRESENT ILLNESS: Ms. Monique is, as of today, a 49-year-old woman who was admitted with recurrent nausea and vomiting. She has been followed at [facility] and has been in the hospital every couple of months with episodes of nausea and vomiting. During these episodes, she has hypertensive urgency and DKA and once the blood sugars are regulated and the blood pressure is regulated and her nausea and vomiting improved. This episode started 3 or 4 days ago. She felt nauseated and then developed nausea and vomiting. Ultimately, she came to the emergency room and was admitted and given fluids and insulin drip and then transitioned to subcu insulin. Her blood pressure was controlled and now today she has no nausea, vomiting, and is tolerating a solid diet without any problems. She has had no hematemesis. No blood in the stool. She states an upper endoscopy was done at [facility] about a year ago to evaluate this, which was negative. She had a colonoscopy for colon cancer screening about 6 months ago at [facility], she believes with Dr. Ly. She reports this was also normal. She does go up to a week and a half between bowel movements and has not been on scheduled laxatives for this. She was also noted to have a couple of small cysts in the pancreas and GI was asked to evaluate that as well. PAST MEDICAL HISTORY: Diabetes mellitus type 2, possible gastroparesis, hypertension, and hyperlipidemia. PAST SURGICAL HISTORY: Hysterectomy and cataract surgery. FAMILY HISTORY: Negative for GI malignancies. SOCIAL HISTORY: No alcohol, tobacco, or drugs. ALLERGIES: NO KNOWN DRUG ALLERGIES. MEDICATIONS: As an outpatient include; 1. Pravastatin. 2. Carvedilol. 3. Metoclopramide, which she just takes p.r.n. once or twice per week. 4. Zofran. 5. K-Dur. 6. Lantus. REVIEW OF SYSTEMS: Negative x10 systems reviewed except as stated in History of Present Illness. PHYSICAL EXAMINATION: VITAL SIGNS: Temperature is 97.6, blood pressure 137/92, pulse 112. GENERAL: She is in no acute distress. Alert and oriented x3. HEENT: Eyes have no scleral icterus. Oropharynx is clear without lesions. No cervical or supraclavicular lymphadenopathy. LUNGS: Clear to auscultation bilaterally. HEART: Regular rate and rhythm without murmur. ABDOMEN: Soft, nontender, and nondistended. Bowel sounds are present. EXTREMITIES: No lower extremity edema. 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 NEUROLOGIC: Cranial nerves are grossly intact. LABORATORY DATA: White blood cell count 7.8, hemoglobin 11.8, platelets 259. Creatinine is 1.01, creatinine on presentation was 1.47, calcium is 8.6, bilirubin 0.7, AST 21, ALT 29, alkaline phosphatase 182, albumin 4.0. IMAGING STUDIES: She had a CT scan of the abdomen and pelvis done on 02/03/2019, which was yesterday. This showed 2 adjacent cystic lesions in the body of the pancreas measuring 8 mm and 9 mm, which appeared to be new compared to a previous CT in 2018. IMPRESSION: 1. Recurrent nausea and vomiting episodes resulting in hospitalization with dehydration every few months. She has been followed at [facility] over the last year at least. She did have upper endoscopy by Dr. Lam here back in November 2017, which was negative. Since then she has had endoscopy at [facility], which she reports was normal and also a colonoscopy at [facility] for screening 6 months ago, which was normal. I suspect the nausea and vomiting is secondary to the hypertensive urgency and the elevated blood sugars. The DKA itself can lead to the nausea and vomiting or could be a consequence of the nausea and vomiting. Either way whenever the blood sugars and blood pressure are controlled, her nausea and vomiting resolves. She could have some degree of chronic gastroparesis as well; however, she seems to go back to normal between episodes. She takes Reglan on a p.r.n. basis, maybe once or twice per week. She can continue this. Primary treatment at this point is optimal control of her blood pressure and blood sugars. 2. Diabetes mellitus with diabetic ketoacidosis, now resolved. 3. Hypertensive urgency, now resolved. 4. Pancreatic cysts. Two small pancreatic cysts measuring 8 mm and 9 mm were noted in the body of the pancreas. Since these are new compared to a CT a little over a year ago, further evaluation would be reasonable with endoscopic ultrasound. She is established at [facility] and has a GI clinic appointment scheduled for the 01 of March already. I encouraged her to keep this appointment. I also spoke with her caregiver about that as well. 5. Chronic constipation. She states she goes up to a week and a half between bowel movements. This might also contribute to some of her intermittent nausea. I will recommend starting a daily schedule osmotic laxative. RECOMMENDATIONS: 1. Proton pump inhibitor. 2. MiraLAX 17 g daily. 3. Primary treatment is optimal control of the blood sugars and blood pressure. 4. Okay to continue with p.r.n. dosing of the Reglan, however, she is not needing that now. 5. Follow up with GI at [facility]. Endoscopic ultrasound of the pancreatic cysts can be performed. 6. I will sign off. Please call if GI can be of assistance. Her symptoms are currently resolved and I would anticipate discharge home tomorrow morning. Job ID: [id number]
[2019-02-05] MEDS: Sodium Chloride 0.9% 1,000 ML IV SCH ×2 (06:00→17:08)
[2019-02-05 06:27] LABS: Anion Gap 7 mmol/L (10-20); BUN (Urea Nitrogen) 17 mg/dL (9.8-20.1); Calc. Creatinine Clearance 64 mL/min (70-130); Calcium 8.5 mg/dL (7.8-10.44); Carbon Dioxide 25 mmol/L (22-29); Chloride 105 mmol/L (98-107); Estimated GFR-MDRD 85; Potassium 3.9 mmol/L (3.5-5.1); Sodium 133 mmol/L (136-145)
[2019-02-05 06:30] LABS: Glucose 35 mg/dL (70-105)
[2019-02-05] MEDS: Carvedilol 6.25 MG TAB PO SCH ×2 (09:33→17:07)
[2019-02-05] MEDS: Enoxaparin Sodium 40 MG/0.4 ML SYRINGE SC SCH (09:36)
[2019-02-05] MEDS: Lisinopril 5 MG TAB PO SCH (09:36)
[2019-02-05] MEDS: Potassium Chloride 20 MEQ TAB PO SCH ×2 (09:36→20:38)
[2019-02-05] MEDS: Insulin Glargine 20 UNITS in Pre-Filled Syringe 1 EACH SC SCH ×2 (10:57→21:30)
[2019-02-05] MEDS: Insulin Glargine 25 UNITS in Pre-Filled Syringe 1 EACH SC SCH (10:57)
[2019-02-05] MEDS: hydrALAZINE 20 MG/ML VIAL SLOW IVP PRN (12:12)
--- NOTE | 2019-02-05 13:10 | PDOC.HOSPP ---
- Subjective Subjective: Seen and examined. No longer having nausea or vomiting. Hypoglycemia in the morning critical at 35. Decreasing long-acting insulin. Heart monitor showing a rate of 190, however and EKG was performed and proved this in accurate. Heart rate is actually 90 bpm and there are no ST T segment abnormalities. No chest discomfort or shortness of breath. - Objective Vital Signs & Weight: Vital Signs (12 hours) Temp Pulse Resp BP Pulse Ox 02/05/19 12:12 95 179/123 H 02/05/19 11:09 95 02/05/19 11:08 97.1 F L 02/05/19 08:00 100 02/05/19 07:21 97.0 F L 02/05/19 05:50 85 16 02/05/19 03:59 97.4 F L Weight Weight 128 lb 12.8 oz Most Recent Monitor Data Heart Rate from ECG 86 NIBP 179/123 NIBP BP-Mean 141 Respiration from ECG 21 SpO2 95 I&O: 02/04/19 02/05/19 02/06/19 06:59 06:59 06:59 Intake Total 2326 3058 Output Total 406 445 5162 Balance 1726 2458 -1050 Result Diagrams: 02/04/19 08:29 02/05/19 05:45 Additional Labs: Accuchecks 02/05/19 02/05/19 02/05/19 10:34 09:34 06:23 POC Glucose 123 H 143 H 61 L 02/05/19 02/04/19 02/04/19 00:04 20:08 16:34 POC Glucose 169 H 197 H 116 H EKG Reviewed by me: Yes (EKG - No ST-T segment abnormalities) Hospitalist ROS - Review of Systems All other systems reviewed; all pertinent +/- noted in HPI/Subj - Medication Medications: Active Medications Generic Name Dose Route Start Last Admin Trade Name Freq PRN Reason Stop Dose Admin Carvedilol 6.25 mg 02/03/19 08:00 02/05/19 09:33 Coreg PO 6.25 mg BID-WM ELISABET Administration Enoxaparin Sodium 40 mg 02/02/19 09:00 02/05/19 09:36 Lovenox SC 40 mg 0900 ELISABET Administration Hydralazine HCl 10 mg 02/02/19 13:59 02/05/19 12:12 Apresoline SLOW IVP 10 mg Q4H PRN Administration Hypertension Sodium Chloride 1,000 mls @ 75 mls/hr 02/03/19 11:15 02/05/19 06:00 Normal Saline 0.9% IV 1,000 mls .[id number] ELISABET Administration Insulin Glargine 20 units/ 0.2 mls @ 1 mls/hr 02/05/19 09:00 02/05/19 10:57 Miscellaneous Medication SC 0.2 mls BID ELISABET Administration Insulin Human Lispro 0 units 02/02/19 13:58 02/03/19 17:41 Humalog SC 2 unit .MODERATE SLIDING SC PRN Administration Moderate Correctional Scale Labetalol HCl 10 mg 02/02/19 05:56 02/03/19 11:16 Normodyne SLOW IVP 2 ml Q6H PRN Administration SBP > 180 Lisinopril 5 mg 02/03/19 09:00 02/05/19 09:36 Zestril PO 5 mg DAILY ELISABET Administration Magnesium Oxide 400 mg 02/01/19 21:04 02/02/19 01:11 Magnesium Oxide PO 400 mg BIDPRN PRN Administration FOR SERUM MAG 1.4 - 2.0 Metoclopramide HCl 10 mg 02/03/19 10:25 02/03/19 13:42 Reglan IVP 10 mg Q6H PRN Administration Nausea/Vomiting Ondansetron HCl 4 mg 02/01/19 20:53 02/03/19 17:36 Zofran IVP 4 mg Q6H PRN Administration Nausea/Vomiting Potassium Chloride 40 meq 02/01/19 21:04 02/02/19 01:11 Klor-Con PER TUBE 40 meq ASDIR PRN Administration FOR SERUM K+ 2.5-3.5 Potassium Chloride 20 meq 02/02/19 21:00 02/05/19 09:36 K-Dur PO 20 meq BID ELISABET Administration Promethazine HCl 12.5 mg 02/02/19 05:57 02/03/19 11:16 Phenergan SLOW IVP 0.5 ml Q6H PRN Administration Nausea/Vomiting Simvastatin 10 mg 02/02/19 21:00 02/04/19 21:15 Zocor PO 10 mg HS ELISABET Administration Sodium Chloride 10 ml 02/02/19 09:00 02/05/19 09:36 Flush - Normal Saline IVF 10 ml Q12HR ELISABET Administration Sodium Chloride 10 ml 02/01/19 21:08 02/05/19 12:14 Flush - Normal Saline IVF 10 ml PRN PRN Administration Saline Flush - Exam General Appearance: NAD, awake alert Eye: anicteric sclera ENT: no oropharyngeal lesions, moist mucosa Neck: supple, symmetric, no lymphadenopathy Heart: no murmur, no gallops, no rubs Respiratory: CTAB, no wheezes, no rales Gastrointestinal: non-tender, non-distended, normal bowel sounds, no guarding, no rigidity Extremities: no clubbing, no edema Skin: no lesions, no rashes Neurological: cranial nerve grossly intact, no weakness, no focal deficits Musculoskeletal: normal strength, no muscle wasting Psychiatric: normal affect, A&O x 3 Hosp A/P (1) DKA (diabetic ketoacidoses) Code(s): E11.10 - TYPE 2 DIABETES MELLITUS WITH KETOACIDOSIS WITHOUT COMA Status: Resolved (2) Gastroenteritis Code(s): K52.9 - NONINFECTIVE GASTROENTERITIS AND COLITIS, UNSPECIFIED Status : Acute (3) Hypertensive urgency Code(s): I16.0 - HYPERTENSIVE URGENCY Status: Acute (4) Hypokalemia Code(s): E87.6 - HYPOKALEMIA Status: Acute (5) Hypovolemia associated with vomiting Code(s): E86.1 - HYPOVOLEMIA Status: Acute (6) Metabolic acidosis Code(s): E87.2 - ACIDOSIS Status: Acute (7) Nausea and vomiting Code(s): R11.2 - NAUSEA WITH VOMITING, UNSPECIFIED Status: Acute Qualifiers: Vomiting type: unspecified Vomiting Intractability: intractable Qualified Code(s): R11.2 - Nausea with vomiting, unspecified (8) DM type 2 (diabetes mellitus, type 2) Status: Chronic (9) Dyslipidemia Code(s): E78.5 - HYPERLIPIDEMIA, UNSPECIFIED Status: Chronic (10) HTN (hypertension) Code(s): I10 - ESSENTIAL (PRIMARY) HYPERTENSION Status: Chronic Qualifiers: Hypertension type: essential hypertension Qualified Code(s): I10 - Essential (primary) hypertension (11) Diabetic gastroparesis Code(s): E11.43 - TYPE 2 DIABETES W DIABETIC AUTONOMIC (POLY)NEUROPATHY; K31.84 - GASTROPARESIS Status: Suspected - Plan Plan: IMCU, D/g to Med/ surg Long and short acting insulin to control blood sugar, decrease from 25 units to 20 units BID - Still with critical lows GI consultation, recommendations appreciated CT scan of the abdomen/ pelvis noted Small pancreatic cyst will likely need monitored over time DKA resolved abdominal pain, improved nausea and vomiting improved with symptomatic therapy patient does have diabetic gastroparesis at baseline IV Reglan Continue IV fluids PRN medications as needed for BP control Oral BP regimen continue home medications is able 02/05/19 - EKG reviewed - ventricular rate of 90BPM without significant ST-T segment abnormalities. Disposition: was planning for D/c this AM. Patient states her childcare director is gone and cant come get her today. I offered to have CM get her a ride home she states she doesn't have the keys and no one will be available to take care of her. CM consult placed to help coordinate discharge planning with childcare director and get her home safely.
--- NOTE | 2019-02-05 16:56 | EKG ---
Test Reason : HIGH HR Blood Pressure : / mmHG Vent. Rate : 090 BPM Atrial Rate : 090 BPM P-R Int : 124 ms QRS Dur : 072 ms QT Int : 338 ms P-R-T Axes : 071 037 063 degrees QTc Int : 413 ms Normal sinus rhythm Low voltage QRS Cannot rule out Anteroseptal infarct (cited on or before 30-MAR-2018) Abnormal ECG When compared with ECG of 01-FEB-2019 16:42, (Unconfirmed) Premature atrial complexes are no longer Present Confirmed by DR. Esperanza BAZZI ([id number]) on 02/05/2019 4:56:30 PM Referred By: SIMONE Confirmed By:DR. Esperanza BAZZI
[2019-02-05] MEDS: Simvastatin 5 MG TAB PO SCH (20:38)
[2019-02-06] MEDS ORDERED: hydrALAZINE 20 MG/ML VIAL SLOW IVP PRN (05:37)
[2019-02-06 06:13] LABS: Anion Gap 9 mmol/L (10-20); BUN (Urea Nitrogen) 11 mg/dL (9.8-20.1); Calc. Creatinine Clearance 73 mL/min (70-130); Calcium 8.9 mg/dL (7.8-10.44); Carbon Dioxide 25 mmol/L (22-29); Chloride 102 mmol/L (98-107); Estimated GFR-MDRD 86; Glucose 129 mg/dL (70-105); Potassium 4.1 mmol/L (3.5-5.1); Sodium 132 mmol/L (136-145)
[2019-02-06] MEDS: Potassium Chloride 20 MEQ TAB PO SCH (07:35)
[2019-02-06] MEDS: Enoxaparin Sodium 40 MG/0.4 ML SYRINGE SC SCH (07:35)
[2019-02-06] MEDS: Carvedilol 6.25 MG TAB PO SCH (07:35)
[2019-02-06] MEDS ORDERED: Insulin Glargine 20 UNITS in Pre-Filled Syringe 1 EACH SC SCH ×2 (09:00→21:00)
[2019-02-06] MEDS ORDERED: Lisinopril 10 MG TAB PO SCH (09:00)
[2019-02-06 11:16] VITALS: BP 124/81; TEMP 97.8
[2019-02-06] MEDS: HumaLOG 300 UNITS/3 ML VIAL SC PRN (11:52)
--- NOTE | 2019-02-06 15:25 | EKG ---
Test Reason : Blood Pressure : / mmHG Vent. Rate : 114 BPM Atrial Rate : 114 BPM P-R Int : 132 ms QRS Dur : 066 ms QT Int : 346 ms P-R-T Axes : 072 073 069 degrees QTc Int : 476 ms Sinus tachycardia with Premature atrial complexes Biatrial enlargement Anteroseptal infarct , age undetermined Abnormal ECG Confirmed by TELLY SOSA, RAKAN ([id number]), society editor IRA KEITA ([id number]) on 02/06/2019 3:25:20 PM Referred By: Confirmed By:RAKAN VARNER MD
--- NOTE | 2019-02-08 09:21 | DIS ---
DATE OF ADMISSION: 02/01/2019 DATE OF DISCHARGE: 02/06/2019 PRIMARY CARE PHYSICIAN: [facility]. DISCHARGE DIAGNOSES: 1. Diabetic ketoacidosis. 2. Hypertensive urgency. 3. Intractable nausea and vomiting. 4. Constipation. 5. Uncontrolled diabetes. 6. Gastroenteritis. 7. Hypokalemia. 8. Hypovolemia. 9. Metabolic acidosis. 10. Dyslipidemia. 11. Diabetic gastroparesis. 12. Pancreatic cyst. CONSULTS: Gastroenterology. HOSPITAL COURSE: A 48-year-old female with past medical history significant for diabetes and hypertension as well as recurrent nausea and vomiting, admitted with acute onset of nausea, vomiting, and abdominal pain for 3 days prior to presentation. Evaluation showed features of diabetic ketoacidosis and uncontrolled hypertension as well as hypovolemia. The patient was treated with insulin infusion, IV fluid with improvement. She was later transitioned to subcutaneous insulin. Hospital course, however, was complicated by hypoglycemic episodes, which were asymptomatic, necessitating adjustment in insulin therapy. The patient also was seen by GI for nausea and vomiting and was felt to have possible gastroparesis as well as constipation, hence was started on scheduled osmotic laxative. During this hospitalization, also the patient was found to have two new pancreatic cystic lesions. GI recommended follow up with regular sewer and cutter finger buff material at [facility] for further evaluation with possible endoscopic ultrasound. The patient remained stable and was subsequently discharged home to follow with PCP and Gastroenterology. PHYSICAL EXAMINATION: VITAL SIGNS: Temperature 97.2, pulse 96, respiratory rate 18, SpO2 of 93% on room air, and blood pressure is 128/77. GENERAL: Female, in no obvious distress. Afebrile. Anicteric. Acyanotic. HEENT: Normocephalic, atraumatic. Oral mucosa is moist. CHEST: Good air entry bilaterally with no obvious crackle or rhonchi or use of accessory muscles. CARDIOVASCULAR: Regular rhythm and rate with normal heart sounds. GASTROINTESTINAL: Full, soft, nontender, nondistended with normal bowel sounds. EXTREMITIES: Grossly normal looking, atraumatic with no edema or erythema. The patient has short limbs. CENTRAL NERVOUS SYSTEM: Conscious and alert and oriented x3. Moves all extremities. DISCHARGE CONDITION: Improved. DISCHARGE DISPOSITION: Home with caregiver. DISCHARGE FOLLOWUP: 1. With PCP within 7 days. 2. With GI physician at [facility] as scheduled on March 01, 2019. DISCHARGE MEDICATIONS: 1. Potassium chloride 20 mEq p.o. b.i.d. 2. Zofran 4 mg q.4 p.r.n. for nausea and vomiting. 3. Acetaminophen 350 mg q.4 p.r.n. for pain. 4. Carvedilol 6.25 mg p.o. b.i.d. 5. Lantus 20 units subcutaneously daily in the morning. 6. Lispro insulin 0 to 15 units t.i.d. with meals according to sliding scale provided. 7. Lisinopril 10 mg p.o. daily. 8. Metoclopramide 10 mg p.o. t.i.d. p.r.n. for nausea and vomiting. 9. MiraLAX 17 g p.o. daily. 10. Pravachol 20 mg p.o. daily at bedtime. TIME SPENT: This discharge took more than 33 minutes. Job ID: [id number]
== END 2019-02-06 12:41 | disposition home or self-care (01) | DRG 638 ==
LOC: ERS 16:30 → IMCU/EMU 21:58 → T4-B 02-05 15:43
PROVIDERS: ADMIT Hospitalist; ATTEND Hospitalist
DX: E11.10 Type 2 diabetes mellitus with ketoacidosis without coma (principal); K86.2 Cyst of pancreas; E11.43 Type 2 diabetes mellitus with diabetic autonomic (poly)neuropathy; I10 Essential (primary) hypertension; K31.84 Gastroparesis; K52.9 Noninfective gastroenteritis and colitis, unspecified; E87.6 Hypokalemia; I16.0 Hypertensive urgency; E86.1 Hypovolemia; E78.5 Hyperlipidemia, unspecified; K59.09 Other constipation; E11.649 Type 2 diabetes mellitus with hypoglycemia without coma; Z90.710 Acquired absence of both cervix and uterus; Z79.4 Long term (current) use of insulin; Z79.899 Other long term (current) drug therapy
CPT/HCPCS: 36415; 36416; 71045; 74177; 80048; 80053; 80306; 81003; 81015; 82010; 82550; 83690; 83735; 83880; 84484; 85025; 87086; 93005; 93010; 96361; 96365; 96367; 96375; 96376; J0360; J1630; J1650; J1815; J1940; J2405; J2550; J2765; J3480; J3490; J8597; Q9966

== ENCOUNTER 2019-03-06 00:41 | Inpatient (IN) | payer MEDICARE ==
[2019-03-06] MEDS ORDERED: Ondansetron PF 4 MG/2 ML Vial ONE (01:03)
[2019-03-06 01:23] LABS: #Lymphocytes 1.6 thou/uL (1.20-3.40); #Neutrophils 5.9 thou/uL (1.40-6.50); %Basophils 0.5 % (0.0-1.0); %Eosinophils 0.2 % (0.0-10.0); %Lymphocytes 18.8 % (21.0-51.0); %Monocytes 11.3 % (0.0-10.0); %Neutrophils 69.2 % (42.0-75.0); Hemoglobin 13.3 g/dL (12.0-16.0); Mean Corpuscular HGB CONC 33.4 g/dL (32.0-36.0); Mean Corpuscular Hemoglobin 30.3 pg (27.0-31.0); Mean Corpuscular Volume 90.8 fL (78.0-98.0); Mean Platelet Volume 7.1 fL (7.4-10.4); Platelet Count 292 thou/uL (130-400); RBC Distribution Width 12.6 % (11.5-14.5); White Blood Cell (WBC) Count 8.5 thou/uL (4.8-10.8)
[2019-03-06 01:46] LABS: ALT (SGPT) 23 U/L (8-55); AST (SGOT) 21 U/L (5-34); Albumin 3.4 g/dL (3.5-5.0); Alkaline Phosphatase 210 U/L (40-110); Anion Gap 15 mmol/L (10-20); BUN (Urea Nitrogen) 26 mg/dL (9.8-20.1); Bilirubin, Total 0.7 mg/dL (0.2-1.2); CK (CPK) 110 U/L (29-168); Calc. Creatinine Clearance 0 mL/min (70-130); Calcium 8.8 mg/dL (7.8-10.44); Carbon Dioxide 25 mmol/L (22-29); Chloride 99 mmol/L (98-107); Estimated GFR-MDRD 52; Globulin 3.3 g/dL (2.4-3.5); Glucose 203 mg/dL (70-105); Protein, Total 6.7 g/dL (6.0-8.3); Sodium 136 mmol/L (136-145)
[2019-03-06 01:49] LABS: Potassium 2.7 mmol/L (3.5-5.1)
[2019-03-06 03:09] LABS: Bilirubin Negative (Negative); Blood, Urine 1+ (Negative); Clarity Clear (Clear); Glucose, Urine (Dipstick) 500 mg/dL (Negative); Leukocyte Negative Leu/uL (Negative); Nitrite Negative (Negative); Protein, Urine (Dipstick) 300 mg/dL (Neg-Trace); Squamous Epithelial 0-3 HPF (0-3); Urobilinogen Normal mg/dL (Less than 2); WBC/HPF 0-3 HPF (0-3)
[2019-03-06 03:10] LABS: Bacteria/HPF 1+ HPF (None Seen)
[2019-03-06] MEDS ORDERED: hydrALAZINE 20 MG/ML VIAL ONE ×2 (03:28→04:00)
[2019-03-06] MEDS ORDERED: Potassium Chloride 20 MEQ TAB ONE (03:28)
[2019-03-06] MEDS ORDERED: Metoclopramide HCl 10 MG/2 ML VIAL ONE (04:15)
[2019-03-06] MEDS ORDERED: diphenhydrAMINE 50 MG/ML VIAL ONE (04:15)
[2019-03-06 05:30] LABS: Troponin I 0.042 ng/mL (< 0.028)
[2019-03-06] MEDS ORDERED: Potassium Chloride 20 MEQ in Premix Bag 1 BAG IVPB SCH (05:30)
[2019-03-06 06:25] VITALS: BMI 25.1
[2019-03-06 08:29] LABS: Troponin I 0.024 ng/mL (< 0.028)
--- NOTE | 2019-03-06 10:35 | CT ---
PRELIMINARY REPORT/[facility]/EMERGENCY AFTER HOURS PROCEDURE PROCEDURE INFORMATION: Exam: CT Head Without Contrast Exam date and time: 03/06/2019 1:31 AM Clinical history: 49 years old, female; Pain; Headache not specified; Patient HX: F49 presents to the er with C/O hypoglycemia today. EMS states PT was seen at [facility] earlier today and given insulin for hy pertension and hyperglycemia and discharged at 1600 and hasnt felt well. Initial bg 34 and one tube o f oral glucose to raise bg to 134. EMS reports vomiting just started on arrival. PT reports HERNANDEZ for th e past 4 hours and she has had SOB TECHNIQUE: Imaging protocol: Computed tomography of the head without contrast. COMPARISON: No relevant prior studies available. FINDINGS: Limitations: Motion artifact does moderately limit the sensitivity of this examination. Brain: Normal. No hemorrhage. Unremarkable white matter. No mass effect. Ventricles: Normal. No ventriculomegaly. Bones/joints: Unremarkable. No acute fracture. Sinuses: Visualized sinuses are unremarkable. No fluid levels. Mastoid air cells: Visualized mastoid air cells are well aerated. Soft tissues: Unremarkable. IMPRESSION: No acute abnormality. Thank you for allowing us to participate in the care of your patient. Dictated and Authenticated by: Shantanu Orourke MD 03/06/2019 1:52 AM Central Time ([place] & [place]) FINAL REPORT CT BRAIN WITHOUT CONTRAST: I agree with the preliminary report given by Dr. Shantanu Orourke of [facility]. CODE QA POS: [facility]
--- NOTE | 2019-03-06 11:08 | RAD ---
PORTABLE CHEST ONE VIEW: 03/06/2019 1:18 a.m. HISTORY: Nausea and vomiting. Hypoglycemia. COMPARISON: 12/11/2017 FINDINGS: The heart is enlarged. The lungs are well expanded without focal areas of consolidation, pneumothorac es or pleural effusions. IMPRESSION: No acute process. POS: [facility]
[2019-03-06] MEDS ORDERED: Dextrose 5% in Water 1,000 ML IV PRN (11:11)
[2019-03-06] MEDS ORDERED: Dextrose 50% Abboject 50 ML SYRINGE SLOW IVP PRN (11:11)
[2019-03-06] MEDS ORDERED: Senokot S 8.6-50 MG TAB PO PRN (11:11)
[2019-03-06] MEDS ORDERED: Guaifenesin DM 100-10/5 ML UDCUP PO PRN (11:11)
[2019-03-06] MEDS ORDERED: Metoclopramide HCl 10 MG TAB PO PRN (11:11)
[2019-03-06] MEDS ORDERED: Acetaminophen 325 MG TAB PO PRN (11:11)
[2019-03-06] MEDS ORDERED: Bisacodyl 10 MG SUPP PR PRN (11:11)
[2019-03-06] MEDS ORDERED: NIFEdipine XL 60 MG TAB PO SCH (11:45)
[2019-03-06] MEDS: Potassium Chloride 20 MEQ TAB PO SCH ×3 (11:51→23:34)
[2019-03-06] MEDS: Furosemide 40 MG/4 ML VIAL SLOW IVP SCH (14:42)
[2019-03-06 15:24] LABS: Anion Gap 13 mmol/L (10-20); BUN (Urea Nitrogen) 26 mg/dL (9.8-20.1); Calc. Creatinine Clearance 42 mL/min (70-130); Calcium 8.3 mg/dL (7.8-10.44); Carbon Dioxide 21 mmol/L (22-29); Chloride 101 mmol/L (98-107); Estimated GFR-MDRD 52; Glucose 279 mg/dL (70-105); Potassium 3.7 mmol/L (3.5-5.1); Sodium 131 mmol/L (136-145)
--- NOTE | 2019-03-06 16:45 | HP ---
REASON FOR ADMISSION: Hypertensive urgency, hypokalemia, and possible acute kidney injury. HISTORY OF PRESENTING ILLNESS: The patient gives history of having high blood pressure all through the night. She also gives history of having diabetic gastroparesis symptoms last week on Friday and was hospitalized under observation [facility]. She was discharged on Friday evening, but by the same night, her symptoms got worse and had to be readmitted and was discharged on . Currently, complains of swelling/edema all over her body, specially her face. She is not nauseous or vomited this hospitalization so far. She ate her breakfast this morning. The patient also mentions that she is scheduled for endoscopic ultrasound on April 01 by [facility]. No complaints of chest pain or palpitation. No complaints of orthopnea, but has shortness of breath on minimal exertion. PAST MEDICAL AND SURGICAL HISTORY: History of diabetes mellitus type 2, gastroparesis, hypertension, hysterectomy, cataract surgery, and dyslipidemia. CURRENT MEDICATIONS: Please note, the patient does not recall all her medications, but she knows she takes Lantus 25 units daily. She also takes; 1. Humalog sliding scale. 2. Carvedilol 6.25 mg twice daily. 3. K-Dur 20 mEq twice daily. 4. Lisinopril 10 mg daily. 5. Reglan 10 mg 3 times daily p.r.n. 6. MiraLAX 17 g daily. 7. Pravachol 20 mg p.o. at bedtime. ALLERGIES: NO KNOWN DRUG ALLERGIES. PERSONAL HISTORY: Does not abuse alcohol or drugs. No history of smoking. She lives with her family. FAMILY HISTORY: Mother at the age of 62 years likely from stomach cancer. Father has diabetes and is living. Had a brother, who of massive MS at the age of 43 years. CODE STATUS: Full. REVIEW OF SYSTEMS: CONSTITUTIONAL: Negative for weight loss or gain, ability to conduct usual activities. SKIN: Negative for rash, itching. EYES: Negative for double vision, pain. ENT/MOUTH: Negative for nose bleeding, neck stiffness, pain, tenderness. CARDIOVASCULAR: Negative for palpitations, dyspnea on exertion, orthopnea. RESPIRATORY: Negative for shortness of breath, wheezing, cough, hemoptysis, fever or night sweats. GASTROINTESTINAL: Negative for poor appetite, abdominal pain, heartburn, nausea, vomiting, constipation, or diarrhea. GENITOURINARY: Negative for urgency, frequency, dysuria, nocturia. MUSCULOSKELETAL: Negative for pain, swelling. NEUROLOGIC/PSYCHIATRIC: Negative for anxiety, depression. ALLERGY/IMMUNOLOGIC: Negative for skin rash, bleeding tendency. PHYSICAL EXAMINATION: GENERAL: The patient is a 49-year-old female, who is currently not in any acute distress. VITAL SIGNS: Blood pressure on arrival was 199/110, pulse 118 per minute, respiratory rate 20 per minute, temperature 99.8 degrees Fahrenheit, and saturating 99% on room air. HEENT: Eyes; extraocular muscles intact. Pupils reacting to light. NECK: Supple. Elevated JVD. CARDIOVASCULAR SYSTEM: S1 and S2 heard. Loud S2. No murmur. RESPIRATORY SYSTEM: Air entry 1+ bilateral. Basal rales plus. ABDOMEN: Soft. Bowel sounds heard. No tenderness, rigidity, or guarding. EXTREMITIES: There is mild peripheral edema. No calf tenderness. VASCULAR SYSTEM: Peripheral pulses 1+ bilateral. No ischemic ulcerations or gangrene. CENTRAL NERVOUS SYSTEM: No gross focal deficits noted. The patient is alert, awake, oriented well. PSYCHIATRIC SYSTEM: The patient's mood is euthymic. No hallucinations or delusions. LABORATORY DATA: EKG done shows sinus tach at 113 beats per minute. There is Q-waves seen in V2, V3, V4, V5. White count of 8, H and H of 13 and 39, platelet count 292, and MCV is 90 with 69% neutrophils. Potassium 2.7, BUN 26, creatinine 1.3, serum bicarb 25, and serum glucose 203. Troponin I is indeterminate, peaking up to 0.04. Albumin is 3.4, total bilirubin 0.7, AST and ALT within normal limits, and alkaline phosphatase is 210. BNP is 148. IMAGING DATA: CT brain without contrast done showed no acute abnormality. Chest x-ray done shows cardiomegaly. No infiltrate is seen. CLINICAL IMPRESSION AND PLAN: The patient will be under observation on telemetry for uncontrolled hypertension, hypokalemia, possible acute kidney injury. The patient has EKG changes and cardiomegaly on the chest x-ray with volume overload symptoms. We will replace her potassium aggressively and also place her on Lasix 40 mg IV at 6:00 a.m. and 2:[address] place her back on Coreg 6.25 mg twice daily home dose, lisinopril 10 mg home dose, Procardia XL 60 mg, and new antihypertension medication for now and daily. We will obtain echo with 2D Doppler for LV function. We will continue her Pravachol, Lantus at 10 units subcu twice daily. I have consulted Dr. Price for Cardiology. We will await echo results. Likely 3 doses of Lasix should be sufficient to decrease the volume overload and hopefully, her creatinine remains stable. Job ID: [id number]
[2019-03-06] MEDS: HumaLOG 300 UNITS/3 ML VIAL SC PRN ×2 (18:30→21:24)
[2019-03-06] MEDS: Carvedilol 6.25 MG TAB PO SCH (19:30)
[2019-03-06] MEDS: Simvastatin 5 MG TAB PO SCH (19:31)
[2019-03-06] MEDS: Famotidine 20 MG TAB PO SCH (19:31)
[2019-03-06] MEDS ORDERED: Insulin Glargine 10 UNITS in Pre-Filled Syringe 1 EACH SC SCH (21:00)
[2019-03-07] MEDS: Potassium Chloride 20 MEQ TAB PO SCH (04:43)
[2019-03-07] MEDS: Furosemide 40 MG/4 ML VIAL SLOW IVP SCH (04:43)
[2019-03-07 05:10] LABS: #Basophils 0.1 thou/uL (0.0-0.2); #Eosinphils 0.1 thou/uL (0.0-0.7); #Lymphocytes 2.9 thou/uL (1.20-3.40); #Neutrophils 3.5 thou/uL (1.40-6.50); %Basophils 0.7 % (0.0-1.0); %Eosinophils 1.2 % (0.0-10.0); %Lymphocytes 38.7 % (21.0-51.0); %Monocytes 13.6 % (0.0-10.0); %Neutrophils 45.9 % (42.0-75.0); Hemoglobin 12.2 g/dL (12.0-16.0); Mean Corpuscular HGB CONC 33.3 g/dL (32.0-36.0); Mean Corpuscular Hemoglobin 29.3 pg (27.0-31.0); Mean Corpuscular Volume 88.1 fL (78.0-98.0); Mean Platelet Volume 7.3 fL (7.4-10.4); Platelet Count 294 thou/uL (130-400); RBC Distribution Width 12.4 % (11.5-14.5); Red Blood Cell (RBC) Count 4.16 mill/uL (4.20-5.40); White Blood Cell (WBC) Count 7.5 thou/uL (4.8-10.8)
[2019-03-07 05:43] LABS: Anion Gap 14 mmol/L (10-20); BUN (Urea Nitrogen) 31 mg/dL (9.8-20.1); Calc. Creatinine Clearance 34 mL/min (70-130); Calcium 8.9 mg/dL (7.8-10.44); Carbon Dioxide 19 mmol/L (22-29); Chloride 105 mmol/L (98-107); Estimated GFR-MDRD 40; Glucose 254 mg/dL (70-105); Potassium 5.8 mmol/L (3.5-5.1); Sodium 132 mmol/L (136-145)
[2019-03-07] MEDS: HumaLOG 300 UNITS/3 ML VIAL SC PRN ×3 (06:08→21:04)
[2019-03-07] MEDS ORDERED: Sodium Chloride 0.9% 1,000 ML IV SCH (07:15)
[2019-03-07] MEDS ORDERED: Lisinopril 10 MG TAB PO SCH (09:00)
[2019-03-07] MEDS: NIFEdipine XL 60 MG TAB PO SCH (09:14)
[2019-03-07] MEDS: Famotidine 20 MG TAB PO SCH ×2 (09:14→19:53)
[2019-03-07] MEDS: Carvedilol 6.25 MG TAB PO SCH ×2 (09:14→19:53)
[2019-03-07] MEDS: Enoxaparin Sodium 40 MG/0.4 ML SYRINGE SC SCH (09:15)
--- NOTE | 2019-03-07 11:26 | PDOC.HOSPP ---
- Subjective Encounter Date: 03/07/19 Encounter Time: 09:15 Subjective: is in stress lab no sob - Objective Vital Signs & Weight: Vital Signs (12 hours) Temp Pulse Resp BP BP BP Pulse Ox 03/07/19 08:03 98.3 F 100 14 165/98 H 94 L 03/07/19 05:10 98.3 F 90 16 132/80 95 03/06/19 23:30 98.0 F 92 16 108/74 94 L Weight Weight 116 lb 5 oz I&O: 03/06/19 03/07/19 03/08/19 06:59 06:59 06:59 Intake Total 0 1440 Output Total 2650 Balance 0 -1210 Result Diagrams: 03/07/19 04:54 03/07/19 04:54 Additional Labs: Accuchecks 03/06/19 03/06/19 21:15 17:23 POC Glucose 350 H 290 H Hospitalist ROS - Medication Medications: Active Medications Generic Name Dose Route Start Last Admin Trade Name Freq PRN Reason Stop Dose Admin Carvedilol 6.25 mg 03/06/19 21:00 03/07/19 09:14 Coreg PO 6.25 mg BID ELISABET Administration Enoxaparin Sodium 40 mg 03/07/19 09:00 03/07/19 09:15 Lovenox SC 40 mg 0900 ELISABET Administration Famotidine 20 mg 03/06/19 21:00 03/07/19 09:14 Pepcid PO 20 mg BID ELISABET Administration Insulin Human Lispro 0 units 03/06/19 11:11 03/07/19 06:08 Humalog SC 6 unit .MODERATE SLIDING SC PRN Administration Moderate Correctional Scale Insulin Human Lispro 0 units 03/06/19 11:11 03/06/19 21:24 Humalog SC 4 unit .BEDTIME SLIDING SC PRN Administration Bedtime Correctional Scale Nifedipine 60 mg 03/07/19 09:00 03/07/19 09:14 Procardia Xl PO 60 mg DAILY ELISABET Administration Simvastatin 10 mg 03/06/19 21:00 03/06/19 19:31 Zocor PO 10 mg HS ELISABET Administration - Exam General Appearance: NAD, awake alert Eye: PERRL, anicteric sclera ENT: no oropharyngeal lesions, moist mucosa Neck: supple, no JVD Heart: RRR, no murmur Respiratory: no wheezes, no rales Gastrointestinal: soft, non-tender, non-distended, normal bowel sounds Extremities: no cyanosis, 1+ LE edema Neurological: cranial nerve grossly intact, no focal deficits Psychiatric: normal affect, A&O x 3 Hosp A/P (1) Hypertensive urgency Code(s): I16.0 - HYPERTENSIVE URGENCY Status: Acute (2) Hypokalemia Code(s): E87.6 - HYPOKALEMIA Status: Resolved (3) DM type 2 (diabetes mellitus, type 2) Status: Chronic Qualifiers: Diabetes mellitus truck terminal manager insulin use: with truck terminal manager use (4) Dyslipidemia Code(s): E78.5 - HYPERLIPIDEMIA, UNSPECIFIED Status: Chronic (5) HTN (hypertension) Code(s): I10 - ESSENTIAL (PRIMARY) HYPERTENSION Status: Chronic Qualifiers: (6) Diabetic gastroparesis Code(s): E11.43 - TYPE 2 DIABETES W DIABETIC AUTONOMIC (POLY)NEUROPATHY; K31.84 - GASTROPARESIS Status: Chronic - Plan is getting stress test echo shows lvh, ef is normal potassium got over corrected with yassine due to diuresis, dc lasix gentle iv fluids to amb as tolerated continue asp, coreg, procardia xl, zocor, lantus 20 bid (hold when npo) is off lisinopril
[2019-03-07] MEDS: Polyethylene Glycol 3350 17 GM Packet PO SCH (12:40)
[2019-03-07] MEDS: Insulin Glargine 20 UNITS in Pre-Filled Syringe 1 EACH SC SCH ×2 (12:41→21:04)
--- NOTE | 2019-03-07 13:12 | NM ---
Radionucleotide stress and rest myocardial perfusion scan with CT attenuation correction and SPECT im aging Left ventricular wall motion evaluation and ejection fraction HISTORY: Chest pain. FINDINGS: Lexiscan protocol. Homogeneous uptake of radiotracer throughout the left ventricular myocar dium. No focal perfusion defect or reversibility. QGS analysis of gated SPECT images shows depressed ejection fraction of 31%. No focal wall motion abn ormalities. IMPRESSION: Normal myocardial perfusion scan showing no evidence of ischemia. Depressed ejection fraction of 31%. No focal wall motion abnormalities.
--- NOTE | 2019-03-07 15:47 | CON ---
DATE OF CONSULTATION: 03/07/2019 REASON FOR CONSULTATION: Abnormal EKG. HISTORY OF PRESENT ILLNESS: Ms. Faith Monique is a very pleasant 49-year-old female with hypertension, with abnormal EKG. The patient came to the hospital on 03/06/2019. At that point, she had hypertensive urgency, noted to be hypokalemic. She recently was seen at [facility] in the emergency room and then released and then the next morning came back and was again in the hospital there. She came to the hospital here again with severe hypertension and not feeling well. PAST HISTORY: 1. Uncontrolled hypertension. 2. Gastroparesis. 3. Dyslipidemia. 4. Type 2 diabetes. MEDICATIONS: Unfortunately, she really does not know her medicines very well. It is listed as that she is on potassium. She said she is not taking the lisinopril. She is not sure if she is taking the carvedilol. She may be taking that. She just does know that what medicines she is actually taking. ALLERGIES: NONE KNOWN. PERSONAL HISTORY: No alcohol or drugs. FAMILY HISTORY: Mother at age 62 from apparently stomach cancer. REVIEW OF SYSTEMS: CONSTITUTIONAL: No significant weight gain or loss. VISION: No changes. HEARING: No changes. PULMONARY: No cough or wheezing. GASTROINTESTINAL: No nausea, vomiting, or diarrhea. SKIN: No rashes. NEUROLOGIC: No unilateral weakness or numbness. PSYCHIATRIC: No unusual depression or anxiety. PHYSICAL EXAMINATION: VITAL SIGNS: On examination, initially her blood pressure was listed as 199/110, pulse 120. EYES: Sclerae are nonicteric. MOUTH: Mucous membranes moist. NECK: Supple. No lymphadenopathy. LUNGS: Clear. No wheezing. CARDIAC: Normal S1. Normal S2. There is a 2/6 systolic murmur in right upper sternal border. No diastolic murmur. No S3. ABDOMEN: Soft and nontender. EXTREMITIES: No edema currently. They did note that initially she had mild edema. DIAGNOSTIC DATA: Troponin was indeterminate. The EKG showed sinus rhythm, possible old anterior myocardial infarction. However, clinically I suspect this is probably related to left ventricular hypertrophy. Indeed, it was found on echocardiogram that she has left ventricular hypertrophy, severe concentric with ejection fraction of 55% to 60%, moderate tricuspid insufficiency, [id number] pulmonic insufficiency and small generalized pericardial fluid. No tamponade. The patient's potassium was low on admission at 2.7, now it is 5.8. She has received MILTON inhibitor and potassium. Blood sugar 327. Creatinine has gone from 1.3 to 1.6. The nuclear medicine stress test revealed normal perfusion at rest and stress. The ejection fraction was quoted as low, but looking at the actual data, the end-diastolic and end-systolic volumes are both very small indicating that the ejection fraction on the nuclear imaging is artifactual. As it is mentioned that the end-diastolic volume is 41 and systolic volume is 28, that is really not physiologically possible. 13 mL of stroke volume would not be compatible with life. In other words, the ejection fraction is artifactually low, but the echocardiogram gave us a good ejection fraction, it is normal. ASSESSMENT: 1. Hypertensive heart disease. 2. Unfortunately, the patient does not know her medicines well. 3. She has renal failure, stage 3. PLAN: 1. I discussed with her. It is very important for her to know her medicines and bring her medicines with her or at least to list every time she goes to get medical care. 2. I think dihydropyridine would be appropriate. 3. I have to avoid over diuresis. She has diastolic dysfunction with a severe left ventricular hypertrophy. Renal function will worsen if she gets overly dry. 4. Hold MILTON inhibitors for now. 5. Agree with continuing carvedilol. I told to the patient that she really needs to try to get and I think with a hedis nurse in the [facility] to try to regulate her blood pressure tightly. She does have severe global concentric left ventricular hypertrophy and also developing renal failures due to diabetes and hypertension. Job ID: [id number]
[2019-03-07] MEDS: Simvastatin 5 MG TAB PO SCH (19:53)
[2019-03-08 05:10] LABS: #Basophils 0.1 thou/uL (0.0-0.2); #Eosinphils 0.1 thou/uL (0.0-0.7); #Neutrophils 2.8 thou/uL (1.40-6.50); %Eosinophils 1.5 % (0.0-10.0); %Lymphocytes 43.5 % (21.0-51.0); %Monocytes 14.1 % (0.0-10.0); %Neutrophils 39.9 % (42.0-75.0); Hemoglobin 12.7 g/dL (12.0-16.0); Mean Corpuscular HGB CONC 34.3 g/dL (32.0-36.0); Mean Corpuscular Hemoglobin 30.2 pg (27.0-31.0); Mean Platelet Volume 7.4 fL (7.4-10.4); Platelet Count 281 thou/uL (130-400); RBC Distribution Width 12.1 % (11.5-14.5)
[2019-03-08 05:35] LABS: Anion Gap 10 mmol/L (10-20); BUN (Urea Nitrogen) 23 mg/dL (9.8-20.1); Calc. Creatinine Clearance 44 mL/min (70-130); Calcium 8.8 mg/dL (7.8-10.44); Carbon Dioxide 28 mmol/L (22-29); Chloride 100 mmol/L (98-107); Estimated GFR-MDRD 54; Glucose 122 mg/dL (70-105); Potassium 3.8 mmol/L (3.5-5.1); Sodium 134 mmol/L (136-145)
[2019-03-08] MEDS ORDERED: Carvedilol 6.25 MG TAB PO SCH (09:00)
[2019-03-08] MEDS ORDERED: Aspirin Chewable 81 MG TAB PO SCH (09:00)
[2019-03-08] MEDS ORDERED: Lisinopril 5 MG TAB PO SCH (09:00)
[2019-03-08] MEDS ORDERED: Insulin Glargine 30 UNITS in Pre-Filled Syringe 1 EACH SC SCH (09:00)
[2019-03-08] MEDS: Polyethylene Glycol 3350 17 GM Packet PO SCH (09:21)
[2019-03-08] MEDS: Enoxaparin Sodium 40 MG/0.4 ML SYRINGE SC SCH (09:21)
[2019-03-08] MEDS: NIFEdipine XL 60 MG TAB PO SCH (09:21)
--- NOTE | 2019-03-08 15:21 | PRG ---
DATE OF SERVICE: 03/08/2019 SUBJECTIVE: Ms. Monique is feeling well today, no complaints. OBJECTIVE: VITAL SIGNS: Her blood pressure is 120/60, pulse 80 and it is regular. LUNGS: Clear. CARDIAC: Normal S1 and normal S2. ASSESSMENT: 1. Congestive heart failure systolic, acute on chronic, improved. 2. Underlying coronary artery disease. PLAN: 1. She is on enoxaparin. 2. Carvedilol. 3. Lisinopril. 4. Okay to move out to the floor. Hopefully, home in a day or 2 to follow up with her local database engineer. Job ID: [id number]
--- NOTE | 2019-03-08 15:21 | PRG ---
DATE OF SERVICE: 03/08/2019 SUBJECTIVE: Ms. Monique is doing well. No complaints. Feels well. OBJECTIVE: VITAL SIGNS: Blood pressure 130 systolic, pulse is 80. LUNGS: Clear. CARDIAC: Normal S1, S2. ABDOMEN: Soft, nontender. ASSESSMENT: 1. Hypertension with hypertensive heart disease. 2. Blood pressure is currently controlled. 3. Longstanding uncontrolled hypertension. PLAN: 1. She is on lisinopril 5 mg a day. 2. Carvedilol 12.5 mg twice a day. 3. Nifedipine 60 mg a day long-acting Procardia XL. 4. She has [employer] insurance. She needs to follow up with her primary care physician and be referred in my opinion to a stitching machine setter for tight blood pressure control. She is getting end-organ effects of her hypertension including renal insufficiency and severe left ventricular hypertrophy. Job ID: [id number]
[2019-03-08 16:36] VITALS: BP 125/62; TEMP 98.7
[2019-03-08] MEDS ORDERED: Latanoprost 0.005% Ophth Soln 2.5 ml Bottle EA EYE SCH (21:00)
--- NOTE | 2019-03-09 07:18 | DIS ---
DATE OF ADMISSION: 03/07/2019 DATE OF DISCHARGE: 03/08/2019 DISCHARGE DISPOSITION: Home. PRIMARY DISCHARGE DIAGNOSES: 1. Volume overload, likely due to diastolic dysfunction. 2. Hypertensive urgency, resolved. 3. Hypokalemia, resolved. 4. Diabetes mellitus type 2. 5. History of diabetic gastroparesis, stable. 6. Dyslipidemia. PROCEDURES DONE DURING HOSPITALIZATION: Initial CT brain done showed no acute intracranial abnormality. Chest x-ray showed cardiomegaly. Nuclear stress test done showed no reversible ischemia. Echo with 2D Doppler showed an ejection fraction of 55% to 60% with severe concentric LVH. There was grade 2 diastolic dysfunction. Small generalized pericardial effusion was seen. No right atrial or right ventricular collapse was noted. H and H 12 and 37, platelet count 281, white count of 7, BUN 23, and creatinine 1.27. BNP 17. Initial BUN and creatinine were 26 and 1.3 with potassium of 2.7 on admission. DISCHARGE MEDICATIONS: 1. Lipitor 20 mg p.o. at bedtime. 2. Lantus 30 units subcu twice daily. 3. Latanoprost eye drops at bedtime to both eyes. 4. Protonix 40 mg daily. 5. Aspirin 81 mg p.o. daily. 6. Coreg 12.5 mg twice daily. 7. Lisinopril 5 mg daily. 8. Procardia XL 60 mg daily. 9. MiraLAX 17 g daily. ALLERGIES: NO KNOWN DRUG ALLERGIES. DISCHARGE PLAN: The patient to follow up with her [facility] chain maker loom control in 2 weeks. She also needs to follow up with her primary care physician at [facility], Dr. Jean Dubon in 1 week. BRIEF COURSE DURING HOSPITALIZATION: The patient initially was brought to emergency room with high blood pressures at home. She also had a headache and was volume overloaded as well. She had her echo revealed diastolic dysfunction. She has had gentle diuresis done and her medications for hypertension were titrated. The patient received 3 doses of Lasix and developed acute kidney injury. This resolved with gentle volume resuscitation. She has had consultation with Dr. rPice for Cardiology. Nuclear stress test done showed no reversible ischemia. Echo showed good ejection fraction with diastolic dysfunction. The patient had severe LVH on the echo and had Q-waves seen on the EKG from V2 to V6 on the lateral leads and the anterolateral leads. Her hypertension is fairly well controlled during her stay here. She is ambulating and tolerating oral solid diet. The patient was counseled with regard to medication compliance and dietary compliance on discharge. She needs to follow up with her [facility] chain maker loom control in 2 to 4 weeks and primary care physician in 1 week. Please note, I have seen and examined the patient on the day of discharge. Job ID: [id number]
--- NOTE | 2019-03-09 21:57 | PQF ---
[employer] Body Technician Crystal Reports Winform Viewer YAMILA ABARCA VINAYA KUMAR MD [id number] [facility]-296 [id number] CLINICAL DOCUMENTATION CLARIFICATION FORM: POST DISCHARGE Addendum to original discharge summary date: ____ Late entry note date: __ DATE: 03/09/19 ATTN: Rafael Smith Please exercise your independent, professional judgment in responding to the clarification form. Clinical indicators are provided on the bottom of this form for your review Can you please further specify the type and acuity of CHF based on the clinical indicators below? Please check appropriate box(s): HEART FAILURE: A. TYPE: [ ] Systolic / HFrEF [ x] Diastolic / HFpEF [ ] Combined Systolic / Diastolic B. ACUITY [ ] Acute [ x ] Acute on Chronic [ ] Chronic [ ] Other diagnosis please specify [ ] Unable to determine In addition, please specify: Present on Admission (POA): [ x ] Yes [ ] No [ ] Unable to determine For continuity of documentation, please document condition throughout progress notes and discharge summary. Thank You. CLINICAL INDICATORS - SIGNS / SYMPTOMS / LABS Echocardiogram report - Ejection fraction is visually estimated at 55 60% Echocardiogram report - Grade 2 diastolic dysfunction Laboratory 03/06- BNP 148.6H PN p1 03/08 Dr. Price - Congestive heart failure systolic, acute on chronic, improved PN p1 03/08 Dr. Price - Hypertension with hypertensive heart disease DS p2 03/08 Dr. Cook - had a headache and was volume overloaded as well. She had her echo revealed diastolic dysfunction DS p 03/08 Dr. Cook - Volume overload, likely due to diastolic dysfunction RISKS: Hypertension-H&P 03/06 Dr. Cook Renal failure stage 3-Consult 03/07 Dr. Price Diabetes mellitus-H&P 03/06 Dr. Cook CAD-PN 03/08 Dr. Price Hyperlipidemia-H&P 03/06 Dr. Cook TREATMENTS: Consult 03/07 Dr. Price Cardiology Consult Echocardiogram report TTE MAR 03/06 IV Lasix 40 mg Chest Xray 03/06 (This form is maintained as a part of the permanent medical record) 2014 [employer]. All Rights Reserved [email or web address] [phone] [facility]
== END 2019-03-08 18:50 | disposition home or self-care (01) | DRG 291 ==
LOC: ERS 00:41 → 2SW 04:18 → 2NO 05:10 → OBSVTOIN 03-07 15:30 → 2NO 03-07 21:26
PROVIDERS: ADMIT Internal Medicine; ATTEND Internal Medicine
DX: I13.0 Hypertensive heart and chronic kidney disease with heart failure and stage 1 through stage 4 chronic kidney disease, or unspecified chronic kidney disease (principal); I50.33 Acute on chronic diastolic (congestive) heart failure; N17.9 Acute kidney failure, unspecified; I16.0 Hypertensive urgency; E87.6 Hypokalemia; E11.43 Type 2 diabetes mellitus with diabetic autonomic (poly)neuropathy; K31.84 Gastroparesis; E78.5 Hyperlipidemia, unspecified; N18.3 Chronic kidney disease, stage 3 (moderate); E11.22 Type 2 diabetes mellitus with diabetic chronic kidney disease; I25.10 Atherosclerotic heart disease of native coronary artery without angina pectoris; Z79.4 Long term (current) use of insulin; Z79.899 Other long term (current) drug therapy
CPT/HCPCS: 36415; 36416; 70450; 71045; 78452; 80048; 80053; 81003; 81015; 82550; 83880; 84484; 85025; 93005; 93017; 93306; A9500; J0360; J1200; J1650; J1815; J1940; J2405; J2765; J3480

== ENCOUNTER 2019-07-02 10:23 | Inpatient (IN) | payer MEDICARE, MEDICAID ==
[2019-07-02 10:50] LABS: #Basophils 0.1 thou/uL (0.0-0.2); #Eosinphils 0.1 thou/uL (0.0-0.7); #Lymphocytes 1.7 thou/uL (1.20-3.40); #Monocytes 0.6 thou/uL (0.11-0.59); #Neutrophils 4.6 thou/uL (1.40-6.50); %Basophils 1.2 % (0.0-1.0); %Eosinophils 1.1 % (0.0-10.0); %Lymphocytes 24.6 % (21.0-51.0); %Monocytes 8.7 % (0.0-10.0); %Neutrophils 64.5 % (42.0-75.0); Hemoglobin 12.6 g/dL (12.0-16.0); Mean Corpuscular HGB CONC 32.4 g/dL (32.0-36.0); Mean Corpuscular Hemoglobin 29.1 pg (27.0-31.0); Mean Corpuscular Volume 89.8 fL (78.0-98.0); Mean Platelet Volume 7.2 fL (7.4-10.4); Platelet Count 231 thou/uL (130-400); RBC Distribution Width 13.9 % (11.5-14.5); Red Blood Cell (RBC) Count 4.32 mill/uL (4.20-5.40); White Blood Cell (WBC) Count 7.1 thou/uL (4.8-10.8)
[2019-07-02 10:53] LABS: Bilirubin Negative (Negative); Blood, Urine Trace (Negative); Clarity Clear (Clear); Glucose, Urine (Dipstick) Normal (Negative); Leukocyte 500 Leu/uL (Negative); Nitrite Negative (Negative); Protein, Urine (Dipstick) 300 mg/dL (Neg-Trace); Squamous Epithelial 0-3 HPF (0-3); Urobilinogen Normal mg/dL (Less than 2); WBC/HPF Greater than 50 HPF (0-3)
--- NOTE | 2019-07-02 10:55 | RAD ---
SINGLE VIEW CHEST: Date: 07/02/2019 COMPARISON: 03/06/19. FINDINGS: Single view of the chest shows an enlarged but stable cardiomediastinal silhouette. There is no evide nce of consolidation, mass, or pleural effusion. Atelectasis is seen in the left lung base. IMPRESSION: Stable cardiomegaly. POS: [facility]
[2019-07-02] MEDS ORDERED: Dextrose 50% Abboject 50 ML SYRINGE ONE (10:58)
[2019-07-02 11:02] LABS: Bacteria/HPF None Seen HPF (None Seen)
[2019-07-02 11:04] LABS: Amphetamine Not Detected (NotDetected); Benzodiazepine Screen Not Detected (NotDetected); Cocaine Metabolite Screen Not Detected (NotDetected); Medtox Reader # READER 1; Methamphetamine Not Detected (NotDetected); Opiate Screen Not Detected (NotDetected); Phencyclidine (PCP) Not Detected (NotDetected); THC/Cannabinoid Screen Not Detected (NotDetected)
[2019-07-02 11:05] LABS: Barbiturates Screen Not Detected (NotDetected); Medtox Control Line Valid? VALID (VALID); Methadone Not Detected (NotDetected); Oxycodone Screen Not Detected (NotDetected); Tricyclic Screen Not Detected (NotDetected)
[2019-07-02 11:19] LABS: ALT (SGPT) 37 U/L (8-55); AST (SGOT) 38 U/L (5-34); Acetaminophen Less than 6.0 mcg/mL (10.0-30.0); Albumin 3.4 g/dL (3.5-5.0); Alcohol Less than 10 mg/dL (Less than 10); Alkaline Phosphatase 248 U/L (40-110); Anion Gap 11 mmol/L (10-20); BUN (Urea Nitrogen) 18 mg/dL (9.8-20.1); Bilirubin, Total 0.4 mg/dL (0.2-1.2); CK (CPK) 125 U/L (29-168); Calc. Creatinine Clearance 0 mL/min (70-130); Carbon Dioxide 28 mmol/L (22-29); Chloride 102 mmol/L (98-107); Estimated GFR-MDRD 68; Glucose 75 mg/dL (70-105); Protein, Total 7.4 g/dL (6.0-8.3); Salicylate Less than 8.0 mg/dL (15.0-30.0); Sodium 138 mmol/L (136-145)
[2019-07-02 11:23] LABS: BHCG - Serum Negative (NEGATIVE); Pregs Control Background? CLEAR/WHITE (CLR/WHITE); Pregs Control Bar Appear? YES (CONTROL BAR)
[2019-07-02 11:38] LABS: Thyroid Stimulating Hormone 0.9739 uIU/mL (0.35-4.94)
[2019-07-02 11:39] LABS: Potassium 2.8 mmol/L (3.5-5.1)
[2019-07-02 11:41] LABS: CKMB 2.8 ng/mL (0-6.6)
[2019-07-02] MEDS ORDERED: Potassium Chloride 20 MEQ/100 ML PREMIX BAG ONE (11:52)
[2019-07-02] MEDS ORDERED: Potassium Chloride 20 MEQ in Premix Bag 1 BAG IVPB SCH (12:15)
[2019-07-02] MEDS ORDERED: Potassium Chloride 20 MEQ in Sodium Chloride 0.9% 250 ML 250 ML IVPB SCH (12:15)
--- NOTE | 2019-07-02 12:25 | CT ---
CT OF BRAIN PERFORMED WITHOUT CONTRAST ENHANCEMENT: Date: 07/02/2019 HISTORY: Patient found unresponsive. COMPARISON: 03/06/2019 study. FINDINGS: The ventricular and cisternal system is within normal limits. There are no signs of intracerebral hem orrhage or extra-axial fluid collections. The mastoid air cells and visualized sinuses are clear. Sca rring in the left scalp region is again demonstrated. IMPRESSION: No acute intracranial abnormalities. POS: [facility]
[2019-07-02] MEDS ORDERED: Dextrose 5% in Water 1,000 ML IV PRN (13:33)
[2019-07-02] MEDS ORDERED: HumaLOG 300 UNITS/3 ML VIAL SC PRN (13:33)
[2019-07-02] MEDS ORDERED: Dextrose 50% Abboject 50 ML SYRINGE SLOW IVP PRN (13:33)
[2019-07-02] MEDS ORDERED: Acetaminophen 325 MG TAB PO PRN (13:34)
[2019-07-02] MEDS ORDERED: HYDROcodone/Acetaminophen 5/325 mg Tablet PO PRN (13:34)
[2019-07-02] MEDS ORDERED: Ondansetron PF 4 MG/2 ML Vial IVP PRN (13:34)
[2019-07-02] MEDS ORDERED: Loperamide HCl 2 MG CAP PO PRN (13:34)
[2019-07-02] MEDS ORDERED: Bisacodyl 10 MG SUPP PR PRN (13:34)
[2019-07-02] MEDS ORDERED: HYDROcodone/Acetaminophen 7.5/325 mg Tablet PO PRN (13:34)
[2019-07-02] MEDS ORDERED: Ondansetron ODT 4 MG TAB PO PRN (13:34)
[2019-07-02] MEDS ORDERED: Melatonin 3 MG TAB PO PRN ×2 (13:36→18:04)
[2019-07-02] MEDS ORDERED: Benzonatate 100 MG CAP PO PRN ×2 (13:36→18:04)
[2019-07-02] MEDS ORDERED: Docusate 100 MG CAP PO PRN ×2 (13:36→18:04)
[2019-07-02] MEDS ORDERED: Labetalol HCl 100 MG/20 ML VIAL SLOW IVP PRN ×2 (13:36→18:04)
[2019-07-02] MEDS ORDERED: diphenhydrAMINE 25 MG CAP PO PRN ×2 (13:36→18:04)
[2019-07-02 14:34] LABS: Troponin I 0.048 ng/mL (< 0.028)
--- NOTE | 2019-07-02 15:48 | PDOC.HHP ---
Hospitalist HPI - History of Present Illness Altered mental status and low blood sugar History of Present Illness: Very pleasant 49-year-old female with past medical history of insulin-dependent diabetes mellitus, diabetic gastroparesis, congestive heart failure with diastolic dysfunction, hypertension, and hyperlipidemia who presents with altered mental status and low blood sugar. Patient seen and examined in the emergency department with her aunt at bedside who is able to aid in history. Patient is alert and oriented times three and has good insight into clinical condition. Patient tells me that this AM she tested her blood sugar, took her sliding-scale coverage as directed, went to sit down on the couch and the next thing she knew she was surrounded by paramedics. The patient's and found her face down unconscious by her aunt, who call 911. Paramedics on the scene found that blood sugar was so low it was on readable. Patient had a rectal temperature of 92. Patient received glucose intravenously and had a good improvement of neurologic mentation. With supplemental glucose a patient's blood sugar was 300 on arrival. And now her symptoms are resolving and she is talking in full sentences. Patient is on a bearhugger warming blanket and her temperature has normalized. Patient denies other sick type symptoms no subjective fever or chills, cough, shortness of breath, palpitations, or any other new symptoms. Patient and her family state that she has lost roughly 10 pounds of weight intentionally with diet changes over the past several months. Her insulin requirements have gone down and she has had several hypoglycemic episodes and she is requiring less insulin daily. She just saw her primary care physician this week who adjusted her insulin regimen. Hospitalist ROS - Review of Systems All other systems reviewed; all pertinent +/- noted in HPI/Subj Hospitalist History - Past Medical History Source: patient, family, old records Cardiac: reports: HTN, Hyperlipidemia Pulmonary: reports: congestive heart failure, high cholesterol Endocrine: reports: Diabetes - Past Surgical History Past Surgical History: reports: Other - Family History Family History: reports: hypertension - Social History Smoking Status: Never smoker Alcohol: reports: None Drugs: reports: none Living Situation: With Family Domestic Violence: Negative Activity level: independent ambulation - Exam General Appearance: NAD, awake alert Eye: PERRL, anicteric sclera ENT: normocephalic atraumatic, moist mucosa Neck: supple, symmetric, no lymphadenopathy Heart: no murmur, no gallops, no rubs Respiratory: CTAB, no wheezes, no rales, no ronchi, normal chest expansion Gastrointestinal: soft, non-tender, non-distended, normal bowel sounds, no guarding, no rigidity Extremities: no clubbing, no edema Skin: no rashes Neurological: cranial nerve grossly intact, no focal deficits Musculoskeletal: no muscle wasting, generalized weakness Psychiatric: normal affect, normal behavior, A&O x 3 Hospitalist Results - Labs Result Diagrams: 07/02/19 10:39 07/02/19 10:39 Lab results: WBC 7.1 thou/uL (4.8-10.8) 07/02/19 10:39 Hgb 12.6 g/dL (12.0-16.0) 07/02/19 10:39 Hct 38.8 % (36.0-47.0) 07/02/19 10:39 MCV 89.8 fL (78.0-98.0) 07/02/19 10:39 Plt Count 231 thou/uL (130-400) 07/02/19 10:39 Neutrophils % 64.5 % (42.0-75.0) 07/02/19 10:39 Sodium 138 mmol/L (136-145) 07/02/19 10:39 Potassium 2.8 mmol/L (3.5-5.1) L* 07/02/19 10:39 Chloride 102 mmol/L (98-107) 07/02/19 10:39 Carbon Dioxide 28 mmol/L (22-29) 07/02/19 10:39 BUN 18 mg/dL (9.8-20.1) 07/02/19 10:39 Creatinine 1.04 mg/dL (0.6-1.1) 07/02/19 10:39 Glucose 75 mg/dL (70-105) 07/02/19 10:39 Lactic Acid 0.9 mmol/L (0.5-2.2) 07/02/19 10:39 Calcium 9.0 mg/dL (7.8-10.44) 07/02/19 10:39 Total Bilirubin 0.4 mg/dL (0.2-1.2) 07/02/19 10:39 AST 38 U/L (5-34) H 07/02/19 10:39 ALT 37 U/L (8-55) 07/02/19 10:39 Alkaline Phosphatase 248 U/L (40-110) H 07/02/19 10:39 Creatine Kinase 125 U/L (29-168) 07/02/19 10:39 CK-MB (CK-2) 2.8 ng/mL (0-6.6) 07/02/19 10:39 Troponin I 0.048 ng/mL (< 0.028) H 07/02/19 14:05 Serum Total Protein 7.4 g/dL (6.0-8.3) 07/02/19 10:39 Albumin 3.4 g/dL (3.5-5.0) L 07/02/19 10:39 Lipase 34 U/L (8-78) 07/02/19 10:39 Urine Ketones Negative mg/dL (Negative) 07/02/19 10:36 Urine Blood Trace (Negative) A 07/02/19 10:36 Urine Nitrite Negative (Negative) 07/02/19 10:36 Ur Leukocyte Esterase 500 Ted/uL (Negative) A 07/02/19 10:36 Urine RBC 7-10 HPF (0-3) A 07/02/19 10:36 Urine WBC Greater than 50 HPF (0-3) A 07/02/19 10:36 Ur Squamous Epith Cells 0-3 HPF (0-3) 07/02/19 10:36 Urine Bacteria None Seen HPF (None Seen) 07/02/19 10:36 - Radiology Interpretation CT scan - head Status: image reviewed by ga Hospitalist H&P A/P - Problem (1) Hypoglycemia associated with diabetes Code(s): E11.649 - TYPE 2 DIABETES MELLITUS WITH HYPOGLYCEMIA WITHOUT COMA Status: Acute (2) Overdose of insulin Code(s): T38.3X1A - POISONING BY INSULIN AND ORAL HYPOGLYCEMIC DRUGS, ACC, INIT Status: Acute (3) DM type 2 (diabetes mellitus, type 2) Status: Chronic Qualifiers: Diabetes mellitus mcfp insulin use: with mcfp use (4) Diabetic gastroparesis Code(s): E11.43 - TYPE 2 DIABETES W DIABETIC AUTONOMIC (POLY)NEUROPATHY; K31.84 - GASTROPARESIS Status: Chronic (5) Dyslipidemia Code(s): E78.5 - HYPERLIPIDEMIA, UNSPECIFIED Status: Chronic (6) HTN (hypertension) Code(s): I10 - ESSENTIAL (PRIMARY) HYPERTENSION Status: Chronic Qualifiers: (7) Hypokalemia Code(s): E87.6 - HYPOKALEMIA Status: Resolved - Plan Plan: Plan: admit to medical unit decrease long-acting insulin from 30 units down to 25 units QAM decrease in front sliding-scale to low coverage frequent small meals blood sugar log in the outpatient setting should be kept to avoid hypoglycemic episodes patient has had volume resuscitation, rewarming, and other symptomatic measures and is now back to her baseline continue other home medications is able blood pressure control blood sugar control with long and short acting insulin G.I. prophylaxis DVT prophylaxis
[2019-07-02] MEDS ORDERED: Insulin Glargine 25 UNITS in Pre-Filled Syringe 1 EACH SC SCH (17:00)
[2019-07-02 17:19] VITALS: BMI 26.5
[2019-07-02] MEDS: Heparin 5,000 UNITS/ML VIAL SC SCH ×2 (17:39→21:37)
[2019-07-02] MEDS ORDERED: hydrALAZINE 20 MG/ML VIAL SLOW IVP PRN (18:04)
[2019-07-02 18:06] LABS: Troponin I 0.048 ng/mL (< 0.028)
[2019-07-02] MEDS: Famotidine 20 MG TAB PO SCH (21:36)
[2019-07-02] MEDS: Carvedilol 6.25 MG TAB PO SCH (21:36)
[2019-07-02] MEDS: Latanoprost 0.005% Ophth Soln 2.5 ml Bottle EA EYE SCH (21:37)
[2019-07-02] MEDS: Atorvastatin Calcium 20 MG TAB PO SCH (21:42)
[2019-07-03 04:56] LABS: Anion Gap 8 mmol/L (10-20); BUN (Urea Nitrogen) 15 mg/dL (9.8-20.1); Calc. Creatinine Clearance 51 mL/min (70-130); Calcium 8.3 mg/dL (7.8-10.44); Carbon Dioxide 29 mmol/L (22-29); Chloride 103 mmol/L (98-107); Estimated GFR-MDRD 60; Glucose 243 mg/dL (70-105); Potassium 3.3 mmol/L (3.5-5.1); Sodium 137 mmol/L (136-145)
[2019-07-03] MEDS: Aspirin Chewable 81 MG TAB PO SCH (08:41)
[2019-07-03] MEDS: Carvedilol 6.25 MG TAB PO SCH ×2 (08:41→21:14)
[2019-07-03] MEDS: NIFEdipine XL 60 MG TAB PO SCH (08:41)
[2019-07-03] MEDS: Lisinopril 5 MG TAB PO SCH (08:41)
[2019-07-03] MEDS: Insulin Glargine 25 UNITS in Pre-Filled Syringe 1 EACH SC SCH (08:41)
[2019-07-03] MEDS: Heparin 5,000 UNITS/ML VIAL SC SCH ×3 (08:41→21:14)
[2019-07-03] MEDS: Famotidine 20 MG TAB PO SCH ×2 (08:41→21:14)
[2019-07-03] MEDS: Polyethylene Glycol 3350 17 GM Packet PO SCH (08:42)
[2019-07-03] MEDS: HumaLOG 300 UNITS/3 ML VIAL SC PRN ×2 (11:21→17:12)
[2019-07-03] MEDS ORDERED: Potassium Chloride 20 MEQ TAB PO SCH (13:00)
--- NOTE | 2019-07-03 17:50 | PDOC.HOSPP ---
- Subjective Encounter Date: 07/03/19 Encounter Time: 07:00 Subjective: Pt seen for followup re: acute metabolic encephalopathy. States she feels better. - Objective Vital Signs & Weight: Vital Signs (12 hours) Temp Pulse Pulse Pulse Resp BP BP 07/03/19 15:37 97.3 F L 80 17 07/03/19 13:30 78 78 91/63 100/67 07/03/19 11:17 97.6 F 79 17 07/03/19 09:18 91 07/03/19 08:12 07/03/19 08:10 98.2 F 94 17 BP Pulse Ox Pulse Ox 07/03/19 15:37 111/66 97 07/03/19 13:30 92 L 07/03/19 11:17 107/66 96 07/03/19 09:18 179/84 H 07/03/19 08:12 95 07/03/19 08:10 184/89 H 95 Weight Weight 122 lb 8 oz I&O: 07/02/19 07/03/19 07/04/19 06:59 06:59 06:59 Intake Total 1100 Output Total 750 Balance 350 Result Diagrams: 07/02/19 10:39 07/03/19 04:08 Additional Labs: Accuchecks 07/03/19 07/03/19 07/03/19 16:51 10:54 05:32 POC Glucose 174 H 272 H 240 H 07/02/19 07/02/19 20:19 18:36 POC Glucose 415 H 277 H Labs and MARs reviewed by me EKG Reviewed by me: Yes (Tele: NSR) Hospitalist ROS - Review of Systems Cardiovascular: denies: chest pain, palpitations, orthopnea, paroxysmal noc. dyspnea, edema, light headedness Gastrointestinal: denies: nausea, vomiting, abdominal pain, diarrhea, constipation, melena, hematochezia Genitourinary: denies: dysuria, frequency, incontinence, hematuria, retention Musculoskeletal: denies: neck pain, shoulder pain, arm pain, back pain, hand pain, leg pain, foot pain Skin: denies: rash, lesions, shayy, bruising - Medication Medications: Active Medications Generic Name Dose Route Start Last Admin Trade Name Freq PRN Reason Stop Dose Admin Aspirin 81 mg 07/03/19 09:00 07/03/19 08:41 Aspirin Chewable PO 81 mg DAILY ELISABET Administration Atorvastatin Calcium 20 mg 07/02/19 21:00 07/02/19 21:42 Lipitor PO 20 mg HS ELISABET Administration Carvedilol 12.5 mg 07/02/19 21:00 07/03/19 08:41 Coreg PO 12.5 mg BID ELISABET Administration Famotidine 20 mg 07/02/19 21:00 07/03/19 08:41 Pepcid PO 20 mg BID ELISABET Administration Heparin Sodium (Porcine) 5,000 units 07/02/19 15:00 07/03/19 14:00 Heparin SC 5,000 units TID ELISABET Administration Insulin Glargine 25 units/ 0.25 mls @ 0 mls/hr 07/03/19 09:00 07/03/19 08:41 Miscellaneous Medication SC 0.25 mls QAM ELISABET Administration As Directed Insulin Human Lispro 0 units 07/02/19 13:33 07/03/19 17:12 Humalog SC 2 unit .MILD SLIDING SCALE PRN Administration Mild Correctional Scale Insulin Human Lispro 0 units 07/02/19 13:33 07/02/19 21:36 Humalog SC 5 units .BEDTIME SLIDING SC PRN Administration Bedtime Correctional Scale Latanoprost 1 drop 07/02/19 21:00 07/02/19 21:37 Xalatan 0.005% Ophth Soln EA EYE 1 drop HS [facility] Administration Lisinopril 5 mg 07/03/19 09:00 07/03/19 08:41 Zestril PO 5 mg DAILY ELISABET Administration Nifedipine 60 mg 07/03/19 09:00 07/03/19 08:41 Procardia Xl PO 60 mg DAILY ELISABET Administration Pantoprazole Sodium 40 mg 07/03/19 09:00 07/03/19 08:41 Protonix PO 40 mg DAILY ELISABET Administration Polyethylene Glycol 17 gm 07/03/19 09:00 07/03/19 08:42 Miralax PO Not Given DAILY [facility] - Exam General Appearance: NAD Eye: anicteric sclera ENT: moist mucosa Neck: supple, symmetric, no thyromegaly, no lymphadenopathy Heart: RRR, no gallops, no rubs, normal peripheral pulses Respiratory: CTAB, no wheezes, no rales, no ronchi Gastrointestinal: soft, non-tender, normal bowel sounds, no palpable masses Extremities: no cyanosis Musculoskeletal: normal strength Psychiatric: normal affect, normal behavior Hosp A/P - Plan - Problem (1) Hypoglycemia associated with diabetes Code(s): E11.649 - TYPE 2 DIABETES MELLITUS WITH HYPOGLYCEMIA WITHOUT COMA Status: Acute (2) Overdose of insulin Code(s): T38.3X1A - POISONING BY INSULIN AND ORAL HYPOGLYCEMIC DRUGS, ACC, INIT Status: Acute (3) DM type 2 (diabetes mellitus, type 2) Status: Chronic Qualifiers: Diabetes mellitus correction insulin use: with vermin exterminator use (4) Diabetic gastroparesis Code(s): E11.43 - TYPE 2 DIABETES W DIABETIC AUTONOMIC (POLY)NEUROPATHY; K31.84 - GASTROPARESIS Status: Chronic (5) Dyslipidemia Code(s): E78.5 - HYPERLIPIDEMIA, UNSPECIFIED Status: Chronic (6) HTN (hypertension) Code(s): I10 - ESSENTIAL (PRIMARY) HYPERTENSION Status: Chronic Qualifiers: (7) Hypokalemia Code(s): E87.6 - HYPOKALEMIA Status: Acute - Plan pt's blood sugars improved. Continue insulin sliding scale, mild dose. Pt to follow up with director of outreach after discharge. blood sugar log in the outpatient setting should be kept to avoid hypoglycemic episodes continue other home medications is able HTN controlled. Replace potassium.
[2019-07-03] MEDS: Atorvastatin Calcium 20 MG TAB PO SCH (21:14)
[2019-07-03] MEDS: Latanoprost 0.005% Ophth Soln 2.5 ml Bottle EA EYE SCH (21:16)
[2019-07-04 05:39] LABS: #Eosinphils 0.1 thou/uL (0.0-0.7); #Lymphocytes 2.5 thou/uL (1.20-3.40); #Monocytes 0.6 thou/uL (0.11-0.59); #Neutrophils 2.4 thou/uL (1.40-6.50); %Basophils 0.6 % (0.0-1.0); %Eosinophils 1.5 % (0.0-10.0); %Lymphocytes 45.4 % (21.0-51.0); %Monocytes 10.7 % (0.0-10.0); %Neutrophils 41.9 % (42.0-75.0); Hemoglobin 10.7 g/dL (12.0-16.0); Mean Corpuscular HGB CONC 33.1 g/dL (32.0-36.0); Mean Corpuscular Hemoglobin 29.7 pg (27.0-31.0); Mean Corpuscular Volume 89.8 fL (78.0-98.0); Mean Platelet Volume 7.2 fL (7.4-10.4); Platelet Count 212 thou/uL (130-400); RBC Distribution Width 13.7 % (11.5-14.5); Red Blood Cell (RBC) Count 3.61 mill/uL (4.20-5.40); White Blood Cell (WBC) Count 5.6 thou/uL (4.8-10.8)
[2019-07-04 05:58] LABS: Anion Gap 8 mmol/L (10-20); BUN (Urea Nitrogen) 13 mg/dL (9.8-20.1); Calc. Creatinine Clearance 41 mL/min (70-130); Calcium 8.8 mg/dL (7.8-10.44); Carbon Dioxide 30 mmol/L (22-29); Chloride 103 mmol/L (98-107); Estimated GFR-MDRD 46; Glucose 188 mg/dL (70-105); Potassium 3.7 mmol/L (3.5-5.1); Sodium 137 mmol/L (136-145)
[2019-07-04] MEDS: Carvedilol 6.25 MG TAB PO SCH (08:50)
[2019-07-04] MEDS: Aspirin Chewable 81 MG TAB PO SCH (08:50)
[2019-07-04] MEDS: Lisinopril 5 MG TAB PO SCH (08:50)
[2019-07-04] MEDS: Polyethylene Glycol 3350 17 GM Packet PO SCH (08:51)
[2019-07-04] MEDS: Heparin 5,000 UNITS/ML VIAL SC SCH (08:51)
[2019-07-04] MEDS: Insulin Glargine 25 UNITS in Pre-Filled Syringe 1 EACH SC SCH (08:52)
[2019-07-04] MEDS: NIFEdipine XL 60 MG TAB PO SCH (08:53)
[2019-07-04] MEDS ORDERED: Famotidine 20 MG TAB PO SCH (09:00)
[2019-07-04 11:10] VITALS: TEMP 98.4
[2019-07-04] MEDS: HumaLOG 300 UNITS/3 ML VIAL SC PRN (12:05)
[2019-07-04] MEDS ORDERED: cloNIDine 0.1 MG TAB PO SCH (12:15)
[2019-07-04 12:27] VITALS: BP 174/104
--- NOTE | 2019-07-05 02:21 | DIS ---
DATE OF ADMISSION: 07/02/2019 DATE OF DISCHARGE: 07/04/2019 PRIMARY CARE PROVIDER: Lluvia Jacobs. DISCHARGE DIAGNOSES: 1. Acute metabolic encephalopathy. 2. Insulin overdose. 3. Hypoglycemic episode. 4. Acute kidney injury. CONDITION OF THE PATIENT ON THE DAY OF DISCHARGE: Stable. I assessed Ms. Monique on the day of discharge. She denies any chest pain or shortness of breath. Vital signs are stable. S1 and S2 are heard, regular. Lungs are clear to auscultation bilaterally. DISCHARGE MEDICATIONS: Lisinopril held secondary to acute kidney injury. Lantus dose decreased to 25 units daily. She has been started on a mild sliding scale. Otherwise, no change was made to her pre-admission home medications, which include atorvastatin 20 mg at bedtime, azithromycin 250 mg 3 times a day, hydralazine 50 mg 3 times a day, Protonix 40 mg daily, potassium chloride 10 mEq daily, and Coreg 12.5 mg 2 times a day. POST-ACUTE CARE FOLLOWUP: With primary care provider in 3 days. She has also been advised to follow up with her property management specialist for management of diabetes mellitus. ACTIVITY: No restrictions. DIET: Diabetic and heart healthy. HOSPITAL COURSE: Ms. Monique is a pleasant 49-year-old lady who was admitted to [facility] for acute metabolic encephalopathy secondary to hypoglycemic episode. She was transitioned to mild insulin sliding scale and her Lantus dose was decreased to 25 units daily. She remained stable in the hospital. She has been advised to have her blood sugars checked 3 times a day and show the readings to primary care provider for management of diabetes mellitus as outpatient. Her renal function worsened during this hospitalization. Creatinine went from 1.04 on July 02 to 1.44 on July 04. Lisinopril has been discontinued from her home medications. She has been advised to check her blood pressure and heart rate 3 times a day and show the readings to primary care provider for management of blood pressure medications. She has also been advised to have her creatinine checked in 5 days' time through her primary care provider's office. On the day of discharge, she has sodium 137, potassium 3.7, creatinine 1.44, white count 5600, hemoglobin 10.7, and platelet count 212,000. Many thanks for allowing me to participate in your patient's care. Please feel free to contact me with any questions or concerns. DISCHARGE DESTINATION: Home. TIME SPENT: Total amount of time spent coordinating this discharge is 31 minutes. Job ID: [id number]
--- NOTE | 2019-07-05 14:44 | DIS ---
DATE OF ADMISSION: 07/02/2019 DATE OF DISCHARGE: 07/04/2019 ADDENDUM: Ms. Monique had blood pressure elevation prior to discharge. Her hydralazine dose has been increased to 75 mg 3 times a day. She has been advised to check her blood pressure and heart rate 3 times a day and show the readings to primary care provider so that her antihypertensive medications can be titrated. Job ID: [id number]
== END 2019-07-04 14:11 | disposition home or self-care (01) | DRG 917 ==
LOC: ERS 10:23 → 2NO 13:43
PROVIDERS: ADMIT Internal Medicine; ATTEND Internal Medicine
DX: T38.3X1A Poisoning by insulin and oral hypoglycemic [antidiabetic] drugs, accidental (unintentional), initial encounter (principal); G93.41 Metabolic encephalopathy; N17.9 Acute kidney failure, unspecified; E11.649 Type 2 diabetes mellitus with hypoglycemia without coma; E11.43 Type 2 diabetes mellitus with diabetic autonomic (poly)neuropathy; K31.84 Gastroparesis; E78.5 Hyperlipidemia, unspecified; I10 Essential (primary) hypertension; E87.6 Hypokalemia; Z79.899 Other long term (current) drug therapy; Z79.4 Long term (current) use of insulin
CPT/HCPCS: 36415; 36416; 70450; 71045; 80048; 80053; 80306; 80307; 81003; 81015; 82550; 82553; 83605; 83690; 84443; 84484; 84703; 85025; 87040; 87086; 93005; A4353; J1644; J1815; J3480; J7050

== ENCOUNTER 2019-07-06 22:09 | Observation (INO) | payer MEDICARE, MEDICAID ==
[~2019-07-06 22:09] MED LIST changes: -ISOVUE-370 76%-LOCM 1 ML ONE; +Iopamidol-370 76% 500 ML 1 ML ONE
[2019-07-06] MEDS ORDERED: hydrALAZINE 20 MG/ML VIAL ONE (22:32)
[2019-07-06] MEDS ORDERED: Fentanyl 100 MCG/2 ML VIAL ONE (22:57)
[2019-07-06] MEDS ORDERED: Ondansetron PF 4 MG/2 ML Vial ONE ×2 (22:57→23:20)
[2019-07-06 23:06] LABS: #Basophils 0.1 thou/uL (0.0-0.2); #Lymphocytes 1.5 thou/uL (1.20-3.40); #Monocytes 0.5 thou/uL (0.11-0.59); #Neutrophils 3.7 thou/uL (1.40-6.50); %Basophils 1.1 % (0.0-1.0); %Eosinophils 0.6 % (0.0-10.0); %Lymphocytes 26.4 % (21.0-51.0); %Monocytes 8.6 % (0.0-10.0); %Neutrophils 63.2 % (42.0-75.0); Mean Corpuscular HGB CONC 33.1 g/dL (32.0-36.0); Mean Corpuscular Hemoglobin 30.1 pg (27.0-31.0); Mean Platelet Volume 7.2 fL (7.4-10.4); Platelet Count 280 thou/uL (130-400); Red Blood Cell (RBC) Count 3.98 mill/uL (4.20-5.40); White Blood Cell (WBC) Count 5.8 thou/uL (4.8-10.8)
[2019-07-06 23:11] LABS: Base Excess-Venous 3.2 mmol/L (-2.0 to 3.0); Bicarbonate (HCO3v) 27.9 mmol/L (22.0-28.0); CO2 Tension (PvCO2) 41.9 mmHg (40.0-50.0); Calcium, Ionized 1.16 mmol/L (See Comments:); Chloride 101 mmol/L (98-107); Hemoglobin - Calc 12.8 g/dL (12.0-16.0); Potassium 3.4 mmol/L (3.5-5.1); Sodium 140 mmol/L (138-145); T. Carbon Dioxide 29.2 mmol/L (22.0-28.0)
[2019-07-06 23:15] LABS: BHCG - Serum Negative (NEGATIVE); Pregs Control Background? CLEAR/WHITE (CLR/WHITE); Pregs Control Bar Appear? YES (CONTROL BAR)
[2019-07-06 23:19] LABS: Acetaminophen Less than 6.0 mcg/mL (10.0-30.0); Alcohol Less than 10 mg/dL (Less than 10); Salicylate Less than 8.0 mg/dL (15.0-30.0)
--- NOTE | 2019-07-06 23:19 | RAD ---
Chest AP view INDICATION: Generalized weakness COMPARISON: July 02, 2019 FINDINGS: Lungs:The lungs are clear Cardiac silhouette:Stable prominent cardiomegaly Pulmonary vasculature:Normal Pleural spaces:No pleural effusion or pneumothorax is demonstrated. Upper abdomen:No abnormality seen. Osseous structures: No acute osseous abnormality. Additional findings:None. IMPRESSION: Stable prominent cardiomegaly
[2019-07-06 23:20] LABS: ALT (SGPT) 32 U/L (8-55); AST (SGOT) 27 U/L (5-34); Albumin 3.4 g/dL (3.5-5.0); Alkaline Phosphatase 216 U/L (40-110); Anion Gap 13 mmol/L (10-20); BUN (Urea Nitrogen) 15 mg/dL (9.8-20.1); Bilirubin, Total 0.5 mg/dL (0.2-1.2); Calc. Creatinine Clearance 0 mL/min (70-130); Calcium 9.7 mg/dL (7.8-10.44); Carbon Dioxide 28 mmol/L (22-29); Chloride 99 mmol/L (98-107); Estimated GFR-MDRD 65; Glucose 125 mg/dL (70-105); Lipase 22 U/L (8-78); Potassium 3.2 mmol/L (3.5-5.1); Protein, Total 7.4 g/dL (6.0-8.3); Sodium 137 mmol/L (136-145)
[2019-07-06 23:20] LABS: Magnesium 1.2 mg/dL (1.6-2.6); Phosphorus 2.9 mg/dL (2.3-4.7)
[2019-07-06 23:42] LABS: CKMB 1.9 ng/mL (0-6.6)
[2019-07-06] MEDS ORDERED: Potassium Chloride 30 MEQ in Sodium Chloride 0.9% 250 ML 250 ML IVPB SCH (23:45)
--- NOTE | 2019-07-06 23:46 | CT ---
CT Brain WO Con: 07/06/2019 10:28 PM CLINICAL HISTORY: Generalized weakness with nausea and vomiting and headache. IMAGING TECHNIQUE: Multiple CT images were obtained of the brain without IV contrast. COMPARISON: CT the brain without contrast dated July 02, 2019 FINDINGS: Brain: No acute infarct or hemorrhage is evident. No midline shift. Ventricles: Normal. No hydrocephalus. Skull: Intact. Visualized Paranasal sinuses: Clear. Mastoid air cells:Clear. Extracranial soft tissues:Stable scarring involving the left frontal scalp. IMPRESSION: No acute intracranial abnormality.
[2019-07-06 23:47] LABS: Thyroid Stimulating Hormone 1.2605 uIU/mL (0.35-4.94)
[2019-07-07] MEDS ORDERED: Magnesium 2 GM/50 ML BAG (IN WATER) ONE (00:03)
[2019-07-07] MEDS ORDERED: Promethazine HCl 25 MG/ML VIAL ONE (00:04)
--- NOTE | 2019-07-07 00:05 | CT ---
CT OF THE ABDOMEN AND PELVIS WITH IV CONTRAST INDICATION: Generalized abdominal pain with weakness and nausea vomiting COMPARISON: CT of the abdomen and pelvis dated February 03, 2019, November 17, 2017 and May 31, 2017 FINDINGS: ABDOMEN: Lung bases: There is a stable small pericardial effusion and cardiomegaly. There are small bilateral pleural effusions Liver: Heterogeneous appearance of the liver is similar appearing. Gallbladder: Normal appearing. Pancreas: Cystic lesions involving the pancreas are stable.. The largest is seen within the uncinate process measuring 2.5 cm. 9 mm cystic lesion within the pancreatic body is stable appearing. Mild dilatation of the main pancreatic duct stable appearing. Adrenal glands: Normal. Spleen: Normal. Kidneys and ureters: Normal. No hydronephrosis. Vasculature: Normal. Lymph nodes:No lymphadenopathy. Free fluid in abdomen:No free fluid is evident. PELVIS: Small and large bowel: Mild amount retained stool within the colon. Small bowel is normal caliber. Appendix:Normal Bladder: Normal. Rectal and perirectal soft tissues:Normal. Reproductive structures: Surgically absent Free fluid in pelvis: No free fluid is evident. Lymphadenopathy pelvis: No lymphadenopathy is evident. Osseous structures: No acute osseous abnormality. No destructive osteolytic or osteoblastic lesion i s identified. There is scattered degenerative and osteoarthritic changes. Soft tissues:Small fat-containing umbilical hernia. IMPRESSION: 1. Stable mild pericardial effusion and mild cardiomegaly. 2. Small bilateral pleural effusions. 3. Stable cystic lesions of the pancreas and main pancreatic ductal dilatation, incompletely characte rized. Nonemergent follow-up CT abdomen with and without contrast utilizing a pancreatic mass protocol is recommended. 4. Mild amount retained stool within the colon.
[2019-07-07 00:27] LABS: Bacteria/HPF None Seen HPF (None Seen); Bilirubin Negative (Negative); Blood, Urine Trace (Negative); Clarity Clear (Clear); Glucose, Urine (Dipstick) 70 mg/dL (Negative); Leukocyte 75 Leu/uL (Negative); Nitrite Negative (Negative); Protein, Urine (Dipstick) 300 mg/dL (Neg-Trace); Squamous Epithelial 0-3 HPF (0-3); Urobilinogen Normal mg/dL (Less than 2); WBC/HPF 21-50 HPF (0-3)
[2019-07-07 00:37] LABS: Amphetamine Not Detected (NotDetected); Barbiturates Screen Not Detected (NotDetected); Benzodiazepine Screen Not Detected (NotDetected); Cocaine Metabolite Screen Not Detected (NotDetected); Medtox Control Line Valid? VALID (VALID); Medtox Reader # READER 4; Methadone Not Detected (NotDetected); Methamphetamine Not Detected (NotDetected); Opiate Screen Not Detected (NotDetected); Oxycodone Screen Not Detected (NotDetected); Phencyclidine (PCP) Not Detected (NotDetected); THC/Cannabinoid Screen Not Detected (NotDetected); Tricyclic Screen Not Detected (NotDetected)
[2019-07-07] MEDS ORDERED: Metoclopramide HCl 10 MG/2 ML VIAL ONE (00:59)
[2019-07-07] MEDS ORDERED: Sodium Chloride 0.9% 1,000 ML IV SCH (02:24)
[2019-07-07] MEDS ORDERED: Promethazine HCl 12.5 MG in Sodium Chloride 0.9% 50 ML IVPB PRN (02:25)
[2019-07-07] MEDS ORDERED: Morphine 2 MG/ML SYRINGE SLOW IVP SCH (02:45)
[2019-07-07 03:24] LABS: Troponin I 0.029 ng/mL (< 0.028)
[2019-07-07] MEDS ORDERED: Ondansetron PF 4 MG/2 ML Vial SLOW IVP PRN (04:03)
[2019-07-07] MEDS ORDERED: hydrALAZINE 25 MG TAB PO SCH ×2 (05:15→05:45)
[2019-07-07] MEDS ORDERED: Dextrose 5% in Water 1,000 ML IV PRN (05:44)
[2019-07-07] MEDS ORDERED: Dextrose 50% Abboject 50 ML SYRINGE SLOW IVP PRN (05:44)
[2019-07-07] MEDS ORDERED: Lorazepam 2 MG/ML VIAL SLOW IVP PRN (05:53)
--- NOTE | 2019-07-07 05:57 | PDOC.HHP ---
Hospitalist HPI - History of Present Illness intractable nausea/ vomiting History of Present Illness: THis is a 49 year old female with past medical history of type I diabetes who presented to the ER with intractable nausea/vomiting. THe patient states that it started around 3:00 pm yesterday. She says she has vomited too many times to count; the color was her saliva mixed with the broth that she ate during the day. She denies vomiting blood. The patient states the day prior she ate a tuna fish sandwich. She had no fevers or chills. She did have some abdominal pain and bloating which has improved now. She is on erythromycin for gastroparesis but states that she is starting to develop diarrhea for the past two days from it. She says she has three liquidy stools per day, nonbloody. THe patient was just discharged three days ago for CHEIKH and hypoglycemia and she was discharged with reduced dose of lantus. ED Course: Vitals upon presentation showed BP of 241/136, RR 24, HR 113. Labs showed potassium of 3.4, magnesium level of 1.2. UA showed ketones, beta hydroxybutyrate elevated. The patient had a chest X ray which showed no acute disease. SHe was given 12.5 mg phenergan, 10 mg IV reglan, 1L normal saline, 8 mg zofran, 25 mcg IV fentanyl, 20 mg IV hydralazine. THe patient continues to report nausea. Hospitalist ROS - Review of Systems Constitutional: denies: fever, chills Eyes: denies: pain, vision change ENT: denies: ear pain, ear discharge Respiratory: denies: cough, dry, shortness of breath Cardiovascular: denies: chest pain, palpitations, orthopnea Gastrointestinal: reports: nausea, vomiting, abdominal pain Genitourinary: denies: dysuria, frequency, incontinence Musculoskeletal: denies: neck pain, shoulder pain, arm pain Neurological: denies: weakness, numbness, incoordination - Medication Medications: Active Medications Generic Name Dose Route Start Last Admin Trade Name Freq PRN Reason Stop Dose Admin Hydralazine HCl 75 mg 07/07/19 05:45 07/07/19 05:42 Apresoline PO 07/07/19 07:45 75 mg NOW ELISABET Administration Sodium Chloride 1,000 mls @ 100 mls/hr 07/07/19 02:24 07/07/19 04:27 Normal Saline 0.9% IV 07/07/19 13:12 1,000 mls .Q10H ELISABET Administration Ondansetron HCl 4 mg 07/07/19 04:03 07/07/19 04:27 Zofran SLOW IVP 4 mg Q8H PRN Administration Nausea Hospitalist History - Past Medical History Cardiac: reports: HTN Gastrointestinal: reports: GERD, Other (gastroparesis) Endocrine: reports: Diabetes Other Medical History: Type I diabetes - Past Surgical History Past Surgical History: reports: Other Other Surgical History: Hysterectomy C sections Cataract surgery - Family History Other Family History: Diabetes in family - Social History Smoking Status: Never smoker Alcohol: reports: None Drugs: reports: none - Exam General Appearance: NAD, awake alert General - other findings: appears restless in bed Eye: PERRL, anicteric sclera ENT: normocephalic atraumatic, no oropharyngeal lesions Neck: supple, symmetric, no JVD, no carotid bruit Heart: RRR, no murmur, no gallops, no rubs Respiratory: CTAB Gastrointestinal: soft, non-distended Gastrointestinal - other findings: hyperactive bowel sounds. Diffuse mild tenderness Extremities: no cyanosis, no clubbing, no edema Skin: normal turgor, no lesions, no rashes Neurological: cranial nerve grossly intact, normal sensation to touch, no focal deficits, no new deficit Neurological - other findings: dystonia noted Hospitalist Results - Labs Result Diagrams: 07/06/19 22:50 07/06/19 22:50 Lab results: WBC 5.8 thou/uL (4.8-10.8) 07/06/19 22:50 Hgb 12.0 g/dL (12.0-16.0) 07/06/19 22:50 Hct 36.2 % (36.0-47.0) 07/06/19 22:50 MCV 91.0 fL (78.0-98.0) 07/06/19 22:50 Plt Count 280 thou/uL (130-400) 07/06/19 22:50 Neutrophils % 63.2 % (42.0-75.0) 07/06/19 22:50 VBG pCO2 41.9 mmHg (40.0-50.0) 07/06/19 23:09 VBG pO2 50.2 mmHg (35.0-45.0) H 07/06/19 23:09 Sodium 137 mmol/L (136-145) 07/06/19 22:50 Potassium 3.2 mmol/L (3.5-5.1) L 07/06/19 22:50 Chloride 99 mmol/L (98-107) 07/06/19 22:50 Carbon Dioxide 28 mmol/L (22-29) 07/06/19 22:50 BUN 15 mg/dL (9.8-20.1) 07/06/19 22:50 Creatinine 1.08 mg/dL (0.6-1.1) 07/06/19 22:50 Glucose 125 mg/dL (70-105) H 07/06/19 22:50 Lactic Acid 1.3 mmol/L (0.5-2.2) 07/06/19 22:50 Calcium 9.7 mg/dL (7.8-10.44) 07/06/19 22:50 Total Bilirubin 0.5 mg/dL (0.2-1.2) 07/06/19 22:50 AST 27 U/L (5-34) 07/06/19 22:50 ALT 32 U/L (8-55) 07/06/19 22:50 Alkaline Phosphatase 216 U/L (40-110) H 07/06/19 22:50 CK-MB (CK-2) 1.9 ng/mL (0-6.6) 07/06/19 22:50 Troponin I 0.029 ng/mL (< 0.028) H 07/07/19 02:33 B-Natriuretic Peptide 101.5 pg/mL (0-100) H 07/06/19 22:50 Serum Total Protein 7.4 g/dL (6.0-8.3) 07/06/19 22:50 Albumin 3.4 g/dL (3.5-5.0) L 07/06/19 22:50 Lipase 22 U/L (8-78) 07/06/19 22:50 Urine Ketones 20 mg/dL (Negative) A 07/07/19 00:12 Urine Blood Trace (Negative) A 07/07/19 00:12 Urine Nitrite Negative (Negative) 07/07/19 00:12 Ur Leukocyte Esterase 75 Ted/uL (Negative) A 07/07/19 00:12 Urine RBC 11-20 HPF (0-3) A 07/07/19 00:12 Urine WBC 21-50 HPF (0-3) A 07/07/19 00:12 Ur Squamous Epith Cells 0-3 HPF (0-3) 07/07/19 00:12 Urine Bacteria None Seen HPF (None Seen) 07/07/19 00:12 Hospitalist H&P A/P - Plan Plan: Chest X ray: no acute disease CT abdomen: stable small pericardial effusion and cardiomegaly. Small bilateral pleural effusions. Stable cystic lesions of the pancreas and main pancreatic ductal dilation This is 49 year old female with type I diabetes who presented with intractable nausea/vomiting Nausea/vomiting - likely from gastroparesis vs hypertensive urgency - continue zofran prn, erythromycin tid -CT abdomen with no acute findings, stable pancreatic cyst. - GI consult in past for pancreatic cyst recommended EUS. Pt states she had EUS at [facility] will obtain report - resume meds for hypertension - has elevated beta hydroxybutyrate, but blood sugar only 125 Hypertensive urgency Pleural effusion/pericardial effusion - BP > 190 - will stop IV fluids for now - reorder home hydralazine and coreg - effusions noted on CT abdomen. Will hold off on lasix unless hypoxic Elevated troponin - likely type II - downtrending to 0.029 - no chest pain - will check an EKG Type I diabetes - resume home lantus - fingersticks achs Possible tardive dyskinesia - patient very restless but denies being in pain - will try ativan prn - try to avoid reglan and phenergan DVT prophylaxis: SCDS Code status: full code
[2019-07-07] MEDS ORDERED: Magnesium 2 GM/50 ML 2 GM in Premix Bag 1 BAG IVPB SCH (06:00)
[2019-07-07 06:36] LABS: Troponin I 0.031 ng/mL (< 0.028)
[2019-07-07 06:44] LABS: Hemoglobin 11.7 g/dL (12.0-16.0); Mean Corpuscular HGB CONC 33.9 g/dL (32.0-36.0); Mean Corpuscular Hemoglobin 30.4 pg (27.0-31.0); Mean Corpuscular Volume 89.7 fL (78.0-98.0); Mean Platelet Volume 7.8 fL (7.4-10.4); Platelet Count 252 thou/uL (130-400); RBC Distribution Width 13.8 % (11.5-14.5); Red Blood Cell (RBC) Count 3.83 mill/uL (4.20-5.40); White Blood Cell (WBC) Count 6.4 thou/uL (4.8-10.8)
[2019-07-07 06:52] LABS: Anion Gap 16 mmol/L (10-20); BUN (Urea Nitrogen) 17 mg/dL (9.8-20.1); Calc. Creatinine Clearance 60 mL/min (70-130); Calcium 9.7 mg/dL (7.8-10.44); Carbon Dioxide 22 mmol/L (22-29); Chloride 103 mmol/L (98-107); Estimated GFR-MDRD 74; Glucose 177 mg/dL (70-105); Potassium 3.6 mmol/L (3.5-5.1); Sodium 137 mmol/L (136-145)
[2019-07-07] MEDS: HumaLOG 300 UNITS/3 ML VIAL SC PRN (07:12)
[2019-07-07] MEDS ORDERED: cloNIDine 0.1 MG TAB PO PRN (08:00)
[2019-07-07] MEDS ORDERED: cloNIDine 0.1 MG TAB PO SCH (08:00)
[2019-07-07] MEDS ORDERED: Enalaprilat Dihydrate 1.25 MG/ML VIAL SLOW IVP PRN (08:05)
[2019-07-07] MEDS: hydrALAZINE 25 MG TAB PO SCH ×3 (09:06→21:00)
[2019-07-07] MEDS: Insulin Glargine 25 UNITS in Pre-Filled Syringe 1 EACH SC SCH (09:06)
[2019-07-07] MEDS: Carvedilol 6.25 MG TAB PO SCH ×2 (09:07→21:00)
[2019-07-08] MEDS: HumaLOG 300 UNITS/3 ML VIAL SC PRN ×2 (01:02→11:51)
[2019-07-08 04:36] VITALS: BMI 28.8
[2019-07-08] MEDS: hydrALAZINE 25 MG TAB PO SCH (08:15)
[2019-07-08] MEDS: Carvedilol 6.25 MG TAB PO SCH (08:15)
[2019-07-08] MEDS: Insulin Glargine 25 UNITS in Pre-Filled Syringe 1 EACH SC SCH (08:16)
[2019-07-08 11:48] VITALS: TEMP 97.9
[2019-07-08 11:49] VITALS: BP 151/92
--- NOTE | 2019-07-08 19:22 | DIS ---
DATE OF ADMISSION: 07/07/2019 DATE OF DISCHARGE: 07/08/2019 PRIMARY CARE PROVIDER: Lluvia Jacobs. DISCHARGE DIAGNOSES: 1. Hypertensive urgency. 2. Intractable nausea and vomiting. CONDITION OF THE PATIENT ON DAY OF DISCHARGE: Stable. I assessed Ms. Monique on the day of discharge. She denies any chest pain or shortness of breath. She denies any nausea or vomiting. She is tolerating diet. Vital signs are stable. S1 and S2 are heard, regular. Lungs are clear to auscultation bilaterally. DISCHARGE MEDICATIONS: 1. Erythromycin 250 mg 3 times a day. 2. NovoLog FlexPen per mild sliding scale. 3. Potassium chloride 10 mEq daily. 4. Coreg 12.5 mg 2 times a day. 5. Hydralazine 75 mg 3 times a day. 6. Lantus 25 units daily. POST-ACUTE CARE FOLLOWUP: With primary care provider in 3 days' time. ACTIVITY: No restrictions. DIET: Diabetic diet. HOSPITAL COURSE: Ms. Monique is a pleasant 49-year-old lady who was admitted to [facility] on 07/07/2019, for hypertensive urgency and intractable nausea and vomiting. She improved with antiemetics and antihypertensives. She is being discharged home in a stable condition. Many thanks for allowing me to participate in your patient's care. Please feel free to contact me with any questions or concerns. DISCHARGE DESTINATION: Home. Job ID: [id number]
--- NOTE | 2019-07-10 14:30 | EKG ---
Test Reason : Blood Pressure : / mmHG Vent. Rate : 109 BPM Atrial Rate : 109 BPM P-R Int : 138 ms QRS Dur : 062 ms QT Int : 330 ms P-R-T Axes : 057 011 080 degrees QTc Int : 444 ms Sinus tachycardia Possible Left atrial enlargement Low voltage QRS Cannot rule out Anterior infarct , age undetermined Abnormal ECG Confirmed by KJ AREVALO M.D. ([id number]), graphics editor IRA KEITA ([id number] on 07/10/2019 2:30:01 PM Referred By: Confirmed By:KJ AREVALO M.D.
== END 2019-07-08 14:17 | disposition home or self-care (01) ==
LOC: ERS 22:09 → 2SW 07-07 02:02
PROVIDERS: ADMIT Internal Medicine; ATTEND Internal Medicine
DX: I16.0 Hypertensive urgency (principal); R11.2 Nausea with vomiting, unspecified; E87.6 Hypokalemia; E83.42 Hypomagnesemia; E10.43 Type 1 diabetes mellitus with diabetic autonomic (poly)neuropathy; K31.84 Gastroparesis; I10 Essential (primary) hypertension; K21.9 Gastro-esophageal reflux disease without esophagitis; R79.89 Other specified abnormal findings of blood chemistry; I31.3 Pericardial effusion (noninflammatory); J90 Pleural effusion, not elsewhere classified; K86.89 Other specified diseases of pancreas; E78.5 Hyperlipidemia, unspecified; Z79.899 Other long term (current) drug therapy; Z88.8 Allergy status to other drugs, medicaments and biological substances
CPT/HCPCS: 70450; 71045; 74177; 80048; 80306; 80307; 82010; 82330; 82435; 82553; 82803; 82962 ×3; 83605; 83690; 83735; 83880; 84100; 84132; 84295; 84484 ×3; 84703; 85014; 85027; 87804 ×2; 93005 ×2; 96366; 96375; 96376; G0378 ×3; 36415; 36416; 80053; 81003; 81015; 84443; 85025; 93010; 96361; 96365; A4353; J0360; J1815; J2270; J2405; J2550; J2765; J3010; J3475; J3480; J7050; Q9967